=== PATIENT | male | born 1960 | race Caucasian/White ===

== ENCOUNTER 2020-02-26 07:16 | Outpatient (REF) | payer OTHER, SELFPAY ==
[2020-02-26 07:48] LABS: MANUAL DIFF FLAG NO
[2020-02-26 07:51] LABS: Basophils Absolute Auto 0.1 X10*3/uL (0.0-0.2); Basophils Percent Auto 0.7 % (0-2); Eosinophils Absolute Auto 0.4 X10*3/uL (0.0-0.4); Eosinophils Percent Auto 4.6 % (0-4); Hematocrit 45.1 % (42-52); Hemoglobin 14.9 g/dl (14.0-18.0); Imm Gran Abs Auto 0.05 X10*3/uL (0.00-0.03); Imm Gran Pct Auto 0.7 % (0.0-0.4); Lymphocytes Percent Auto 25.7 % (20-40); Mean Corpuscular Hemoglobin 29.4 pg (27.0-33.0); Mean Platelet Volume 9.7 fL (9.4-12.4); Monocytes Absolute Auto 0.7 X10*3/uL (0.1-1.2); Monocytes Percent Auto 9.4 % (2-11); Neutrophils Absolute Auto 4.5 X10*3/uL (2.0-8.3); Neutrophils Percent Auto 58.9 % (45-73); Platelet Count 293 X10*3/uL (160-400); Red Blood Count 5.07 X10*6/uL (4.60-5.80); Red Cell Distribution Width 12.6 % (11.0-16.0); White Blood Count 7.6 X10*3/uL (4.8-10.8)
[2020-02-26 08:18] LABS: Alanine Aminotransferase 28 U/L (0-40); Albumin Level 4.4 g/dL (3.5-5.0); Alkaline Phosphatase 60 U/L (39-117); Anion Gap 12 (12-20); Aspartate Amino Transferase 19 U/L (5-37); Bilirubin Total 0.9 mg/dL (0.0-1.0); Blood Urea Nitrogen 17 mg/dL (9-16); Calcium 8.9 mg/dL (8.4-10.2); Carbon Dioxide 26 mmol/L (22-29); Chloride 104 mmol/L (96-108); Cholesterol 205 mg/dL; Estimated Glomerular Filt Rate > 60; Glucose Fasting 114 mg/dL (60-99); HDL Cholesterol 49 mg/dL; LDL Cholesterol Calculated 141 mg/dl; Potassium 4.1 mmol/l (3.3-5.1); Sodium 138 mmol/L (135-145); Total Protein 6.6 g/dL (6.5-8.0); Triglycerides 76 mg/dL
[2020-02-26 08:39] LABS: Prostate Specific Antigen Scr 0.96 ng/mL (<0.05-4.0); TSH reflex Free T4 1.13 mIU/mL (0.32-4.0)
[2020-02-26 08:53] LABS: Creatinine Urine 121.18 mg/dL; Microalbumin Urine < 5.0 mg/L
== END 2020-02-26 07:17 | disposition home or self-care (01) ==
LOC: HO.LAB 07:16
PROVIDERS: Visit Provider Physician Assistant
DX: E78.5 Hyperlipidemia, unspecified (principal); I10 Essential (primary) hypertension; Z12.5 Encounter for screening for malignant neoplasm of prostate
CPT/HCPCS: 36415; 80053; 80061; 82043; 84153; 84443; 85025

== ENCOUNTER 2020-04-06 07:44 | Outpatient (REF) | payer OTHER, SELFPAY | END 2020-04-06 07:45 | disposition home or self-care (01) | LOC: HO.LAB 07:44 | PROVIDERS: Visit Provider Internal Medicine | DX: Z20.828 Contact with and (suspected) exposure to other viral communicable diseases (principal) | CPT/HCPCS: C9803; U0003 ==

== ENCOUNTER 2020-04-09 13:26 | Outpatient (REF) | payer OTHER, SELFPAY ==
[2020-04-09 13:36] LABS: COVID-19 Test Positive (Negative)
== END 2020-04-09 13:27 | disposition home or self-care (01) ==
LOC: HO.EMPCOV 13:26
PROVIDERS: Visit Provider Internal Medicine
DX: Z20.828 Contact with and (suspected) exposure to other viral communicable diseases (principal)
CPT/HCPCS: 36415; 87635; C9803

== ENCOUNTER 2020-05-27 07:13 | Outpatient (REF) | payer OTHER, SELFPAY ==
[2020-05-27 07:54] LABS: MANUAL DIFF FLAG NO
[2020-05-27 08:03] LABS: Basophils Percent Auto 0.5 % (0-2); Eosinophils Absolute Auto 0.5 X10*3/uL (0.0-0.4); Hematocrit 45.4 % (42-52); Hemoglobin 15.1 g/dl (14.0-18.0); Imm Gran Abs Auto 0.08 X10*3/uL (0.00-0.03); Imm Gran Pct Auto 1.1 % (0.0-0.4); Lymphocytes Absolute Auto 1.7 X10*3/uL (1.2-4.9); Mean Corpuscular HGB Conc 33.3 g/dl (31.0-36.0); Mean Corpuscular Hemoglobin 29.2 pg (27.0-33.0); Mean Corpuscular Volume 87.8 fL (80-98); Mean Platelet Volume 9.6 fL (9.4-12.4); Monocytes Absolute Auto 0.7 X10*3/uL (0.1-1.2); Monocytes Percent Auto 8.7 % (2-11); Neutrophils Absolute Auto 4.6 X10*3/uL (2.0-8.3); Neutrophils Percent Auto 61.7 % (45-73); Platelet Count 358 X10*3/uL (160-400); Red Blood Count 5.17 X10*6/uL (4.60-5.80); Red Cell Distribution Width 12.3 % (11.0-16.0); White Blood Count 7.5 X10*3/uL (4.8-10.8)
[2020-05-27 08:31] LABS: Alanine Aminotransferase 35 U/L (0-40); Albumin Level 4.6 g/dL (3.5-5.0); Alkaline Phosphatase 65 U/L (39-117); Anion Gap 13 (12-20); Aspartate Amino Transferase 22 U/L (5-37); Bilirubin Total 1.1 mg/dL (0.0-1.0); Blood Urea Nitrogen 21 mg/dL (9-16); Calcium 9.4 mg/dL (8.4-10.2); Carbon Dioxide 28 mmol/L (22-29); Chloride 104 mmol/L (96-108); Cholesterol 213 mg/dL; Estimated Glomerular Filt Rate > 60; Glucose Fasting 126 mg/dL (60-99); HDL Cholesterol 48 mg/dL; LDL Cholesterol Calculated 151 mg/dl; Potassium 4.2 mmol/L (3.3-5.1); Sodium 141 mmol/L (135-145); Total Protein 7.1 g/dL (6.5-8.0); Triglycerides 73 mg/dL
[2020-05-27 08:48] LABS: Estimated Average Glucose 123 mg/dL; Hemoglobin A1c % 5.9 %
[2020-05-27 08:52] LABS: Prostate Specific Antigen Scr 1.14 ng/mL (<0.05-4.0)
== END 2020-05-27 07:14 | disposition home or self-care (01) ==
LOC: HO.LAB 07:13
PROVIDERS: PCP Physician Assistant; Visit Provider Physician Assistant
DX: I10 Essential (primary) hypertension (principal); E78.00 Pure hypercholesterolemia, unspecified; Z12.5 Encounter for screening for malignant neoplasm of prostate
CPT/HCPCS: 36415; 80053; 80061; 83036; 84153; 85025

== ENCOUNTER 2020-11-01 07:01 | Outpatient (REF) | payer OTHER, SELFPAY ==
[2020-11-01 07:59] LABS: Alanine Aminotransferase 26 U/L (0-40); Albumin Level 4.3 g/dL (3.5-5.0); Alkaline Phosphatase 60 U/L (39-117); Anion Gap 12 (12-20); Aspartate Amino Transferase 21 U/L (5-37); Blood Urea Nitrogen 22 mg/dL (9-16); Calcium 9.4 mg/dL (8.4-10.2); Carbon Dioxide 26 mmol/L (22-29); Chloride 107 mmol/L (96-108); Cholesterol 206 mg/dL; Estimated Glomerular Filt Rate > 60; Glucose Fasting 118 mg/dL (60-99); HDL Cholesterol 46 mg/dL; LDL Cholesterol Calculated 149 mg/dl; Potassium 4.1 mmol/L (3.3-5.1); Sodium 141 mmol/L (135-145); Total Protein 6.5 g/dL (6.5-8.0); Triglycerides 59 mg/dL
[2020-11-01 08:24] LABS: TSH reflex Free T4 0.94 uIU/mL (0.32-4.0)
== END 2020-11-01 07:02 | disposition home or self-care (01) ==
LOC: HO.LAB 07:01
PROVIDERS: PCP Physician Assistant; Visit Provider Physician Assistant
DX: E78.00 Pure hypercholesterolemia, unspecified (principal); I10 Essential (primary) hypertension
CPT/HCPCS: 36415; 80053; 80061; 84443

== ENCOUNTER 2021-06-03 06:59 | Outpatient (REF) | payer OTHER, SELFPAY ==
[2021-06-03 07:32] LABS: Hematocrit 44.6 % (42.0-52.0); Hemoglobin 14.7 g/dl (14.0-18.0); Mean Corpuscular Hemoglobin 29.7 pg (27.0-33.0); Mean Corpuscular Volume 90.1 fL (80.0-98.0); Mean Platelet Volume 9.4 fL (9.4-12.4); Platelet Count 298 X10*3/uL (160-400); Red Blood Count 4.95 X10*6/uL (4.60-5.80); Red Cell Distribution Width 12.6 % (11.0-16.0); White Blood Count 7.9 X10*3/uL (4.8-10.8)
[2021-06-03 08:06] LABS: Alanine Aminotransferase 22 U/L (0-40); Albumin Level 4.3 g/dL (3.5-5.0); Alkaline Phosphatase 63 U/L (39-117); Anion Gap 12 (12-20); Aspartate Amino Transferase 18 U/L (5-37); Blood Urea Nitrogen 20 mg/dL (9-16); Calcium 9.5 mg/dL (8.4-10.2); Carbon Dioxide 27 mmol/L (22-29); Chloride 105 mmol/L (96-108); Cholesterol 194 mg/dL; Estimated Glomerular Filt Rate > 60; Glucose Fasting 125 mg/dL (60-99); HDL Cholesterol 48 mg/dL; LDL Cholesterol Calculated 133 mg/dl; Potassium 3.9 mmol/L (3.3-5.1); Sodium 140 mmol/L (135-145); Total Protein 6.6 g/dL (6.5-8.0); Triglycerides 69 mg/dL
[2021-06-03 08:07] LABS: TSH reflex Free T4 0.99 uIU/mL (0.32-4.0)
== END 2021-06-03 07:00 | disposition home or self-care (01) ==
LOC: HO.LAB 06:59
PROVIDERS: PCP Physician Assistant; Visit Provider Physician Assistant
DX: Z12.5 Encounter for screening for malignant neoplasm of prostate (principal); E78.00 Pure hypercholesterolemia, unspecified; I10 Essential (primary) hypertension
CPT/HCPCS: 36415; 80053; 80061; 84153; 84443; 85027

== ENCOUNTER 2021-12-09 07:04 | Outpatient (REF) | payer OTHER, SELFPAY ==
[2021-12-09 07:57] LABS: Alanine Aminotransferase 29 U/L (0-40); Albumin Level 4.3 g/dL (3.5-5.0); Alkaline Phosphatase 55 U/L (39-117); Anion Gap 15 (12-20); Aspartate Amino Transferase 21 U/L (5-37); Blood Urea Nitrogen 17 mg/dL (9-16); Carbon Dioxide 25 mmol/L (22-29); Chloride 105 mmol/L (96-108); Cholesterol 200 mg/dL; Estimated Glomerular Filt Rate > 60; Glucose Fasting 123 mg/dL (60-99); HDL Cholesterol 51 mg/dL; LDL Cholesterol Calculated 135 mg/dl; Potassium 3.8 mmol/L (3.3-5.1); Sodium 141 mmol/L (135-145); Total Protein 6.7 g/dL (6.5-8.0); Triglycerides 73 mg/dL
[2021-12-09 09:27] LABS: Estimated Average Glucose 120 mg/dL; Hemoglobin A1c % 5.8 %
== END 2021-12-09 07:05 | disposition home or self-care (01) ==
LOC: HO.LAB 07:04
PROVIDERS: PCP Physician Assistant; Visit Provider Physician Assistant
DX: R73.09 Other abnormal glucose (principal); E78.00 Pure hypercholesterolemia, unspecified
CPT/HCPCS: 36415; 80053; 80061; 83036

== ENCOUNTER 2022-03-21 13:49 | Outpatient (REF) | payer OTHER, SELFPAY ==
[2022-03-21 16:02] LABS: Influenza A PCR NEGATIVE (Negative); Influenza B PCR NEGATIVE (Negative); Resp Syncy Virus RNA Qual PCR NEGATIVE (Negative); SARS COV2 PCR INHOUSE NEGATIVE (Negative)
== END 2022-03-21 13:50 | disposition home or self-care (01) ==
LOC: HO.LNP 13:49
PROVIDERS: Visit Provider Physician Assistant Medical
DX: Z20.822 Contact with and (suspected) exposure to COVID-19 (principal); R05.9 Cough, unspecified
CPT/HCPCS: 0241U

== ENCOUNTER 2022-07-03 07:05 | Outpatient (REF) | payer OTHER, SELFPAY ==
[2022-07-03 07:39] LABS: Hematocrit 44.5 % (42.0-52.0); Hemoglobin 14.6 g/dl (14.0-18.0); Mean Corpuscular HGB Conc 32.8 g/dl (31.0-36.0); Mean Corpuscular Hemoglobin 28.9 pg (27.0-33.0); Mean Corpuscular Volume 87.9 fL (80.0-98.0); Mean Platelet Volume 9.4 fL (9.4-12.4); Platelet Count 297 X10*3/uL (160-400); Red Blood Count 5.06 X10*6/uL (4.60-5.80); Red Cell Distribution Width 12.7 % (11.0-16.0); White Blood Count 8.6 X10*3/uL (4.8-10.8)
[2022-07-03 07:48] LABS: Estimated Average Glucose 128 mg/dL; Hemoglobin A1c % 6.1 %
[2022-07-03 08:10] LABS: Alanine Aminotransferase 23 U/L (0-40); Albumin Level 4.2 g/dL (3.5-5.0); Alkaline Phosphatase 63 U/L (39-117); Anion Gap 12 (12-20); Aspartate Amino Transferase 20 U/L (5-37); Bilirubin Total 1.2 mg/dL (0.0-1.0); Blood Urea Nitrogen 19 mg/dL (9-16); Carbon Dioxide 26 mmol/L (22-29); Chloride 106 mmol/L (96-108); Cholesterol 191 mg/dL; Estimated Glomerular Filt Rate > 60; Glucose Fasting 117 mg/dL (60-99); HDL Cholesterol 48 mg/dL; LDL Cholesterol Calculated 132 mg/dl; Potassium 4.2 mmol/L (3.3-5.1); Sodium 140 mmol/L (135-145); Total Protein 6.2 g/dL (6.5-8.0); Triglycerides 56 mg/dL
[2022-07-03 08:28] LABS: Prostate Specific Antigen Scr 1.23 ng/mL (<0.05-4.0); TSH reflex Free T4 1.11 uIU/mL (0.32-4.0)
[2022-07-03 08:39] LABS: Microalbum/Creatinine Ratio Ur 3.7 ug/mg cr
== END 2022-07-03 07:06 | disposition home or self-care (01) ==
LOC: HO.LAB 07:05
PROVIDERS: PCP Physician Assistant; Visit Provider Physician Assistant
DX: Z12.5 Encounter for screening for malignant neoplasm of prostate (principal); R73.09 Other abnormal glucose; I10 Essential (primary) hypertension; E78.00 Pure hypercholesterolemia, unspecified
CPT/HCPCS: 36415; 80053; 80061; 82043; 83036; 84153; 84443; 85027

== ENCOUNTER 2022-08-13 07:00 | Outpatient (RCR) | payer OTHER, SELFPAY ==
[2022-07-13 07:00] VITALS: BP 139/86; PULSE 78; O2SAT 95
--- NOTE | 2022-07-13 11:02 | MHC.PT.EP ---
[facility] [place] [facility] [place] Office [place] Office [address] [phone] F: [phone] F: [phone] F: [phone] F: [phone] Physical Therapy Plan of Care Date of Evaluation: Date of Surgery: Diagnosis: SACROCOCCYGEAL DISORDER Assessment: 61 YO MALE REF TO PT W A DX OF SACROCOCCYGEAL DISORDER, RECENT EXACERBATION 2 MONTHS AGO AND INITIAL INJURY APPROX 25 YRS AGO- Pt WORKS FULL-TIME IN THE [employer] [facility] [employer], REQ STANDING, BENDING, SITTING, PUSHING/PULLING, AND LIFTING. OBJECTIVELY, Pt HAS (+) SOFT TISSUE IRRIT IN LACY THORACOLUMBAR PS MM, DECR FLEXIB IN Rt > Lt HIP COMPLEX, DECR BODY MECH, HYPOMOBILE LUMBAR REGION, AND DECR STRENGTH IN LEFT GLUTE COMPLEX, WHICH INFLUENCES LEFT SI Jt. Pt HAS DECR DEBORA TO PROLONGED STANDING, SITTING, LIFTING, AND W TRANSITIONAL MVMTS. HE WOULD BENEFIT FROM PT TO ADDRESS HIS LS/ LUMBOPELVIC- HIP SOFT TISSUE DYSFUNCTION ->DEV A HEP/ SX MGMT STRATEGIES, AND PAIN MGMT TECHN. Frequency and Duration: The patient will be seen 2 x WK x 6 WKS Short Term Goals: *DECR LS PAIN TO 2-3/10 W REG ADLs * IMPROVE TRUNK AND HIP FLEXIB *Pt INDEP SELF CORRECT POSTURE/ BODY MECH W ADLs Assisted Goals: Pt INDEP W HEP PROGRESSION AND SELF-SX MGMT STRATEGIES Pt RESUME REG ADLs EVIDENT W IMPROVED LEFI SCORE (AT EVAL 1450 ) Pt INCR LUMBOPELVIC/ PROX LE STRENGTH BY 1 GRADE Treatment Plan: Modalities to reduce pain, spasms and effusion. Manual therapy to restore motion and function. Therapeutic exercise to improve strength and flexibility. Neuromuscular re-education for posture and balance. Therapeutic activities to return to functional activities of daily living. Electronically signed by: JAQUAN MESSER,PT Please sign and return to therapist. Thank you for your referral.
--- NOTE | 2022-08-13 12:10 | MHC.PT.DC ---
[facility] [place] Office [place] Office [place] Office [address] [place] 140 [facility] [phone] F: [phone] F: [phone] F: [phone] F: [phone] Physical Therapy Discharge Report Diagnosis: SACROCOCCYGEAL DISORDER Date of Surgery: Date of Evaluation: 07/13/22 Date of Discharge: 08/13/22 Treatments to Date: 8 Cancellations to Date: 0 No Shows to Date: 0 Discharge Status: Achieved Goals Improved Function Independent with HEP Discharge Summary: THE Pt BENEFITTED FROM PT FOR HIS SACROCOCCYGEAL DISORDER- WE ADDRESSED HIS POSTURE, TRUNK MOBILITY, HIP FLEXIBILITY ( TROCH BURSITIS Lt HIP), TISSUE TENSION, AND PAIN REDUCTION. THE Pt FEELS HE CAN CONT W HIS HEP AND PLANS TO RETURN TO THE GYM. HE NOTES HE HAS MILD LS SXS W PROLONGED DRIVING, BUT IS AWARE OF SX MGMT TECHN. HE HAS MET HIS PT GOALS AND IS D/C'D THIS DATE W HIS PROGRESSIVE HEP. Electronically signed by: JAQUAN MESSER,PT Please sign and return to therapist. Thank you for your referral.
== END 2022-08-13 12:11 | disposition home or self-care (01) ==
LOC: HO.PT 07:00
PROVIDERS: PCP Physician Assistant; Visit Provider Physician Assistant
DX: M53.3 Sacrococcygeal disorders, not elsewhere classified (principal)
CPT/HCPCS: 97033; 97110; 97140; 97162; 97530

== ENCOUNTER 2023-01-01 07:04 | Outpatient (REF) | payer OTHER, SELFPAY ==
[2023-01-01 07:35] LABS: Hematocrit 46.3 % (42.0-52.0); Hemoglobin 15.5 g/dl (14.0-18.0); Mean Corpuscular HGB Conc 33.5 g/dl (31.0-36.0); Mean Corpuscular Hemoglobin 29.5 pg (27.0-33.0); Mean Corpuscular Volume 88.2 fL (80.0-98.0); Mean Platelet Volume 9.3 fL (9.4-12.4); Platelet Count 292 X10*3/uL (160-400); Red Blood Count 5.25 X10*6/uL (4.60-5.80); Red Cell Distribution Width 12.4 % (11.0-16.0); White Blood Count 8.1 X10*3/uL (4.8-10.8)
[2023-01-01 07:46] LABS: Estimated Average Glucose 120 mg/dL; Hemoglobin A1c % 5.8 % (<6.0)
[2023-01-01 07:59] LABS: Alanine Aminotransferase 25 U/L (0-40); Albumin Level 4.4 g/dL (3.5-5.0); Alkaline Phosphatase 61 U/L (39-117); Anion Gap 16 (12-20); Aspartate Amino Transferase 21 U/L (5-37); Blood Urea Nitrogen 19 mg/dL (9-16); Calcium 9.5 mg/dL (8.4-10.2); Carbon Dioxide 24 mmol/L (22-29); Chloride 105 mmol/L (96-108); Cholesterol 204 mg/dL (<200); Estimated Glomerular Filt Rate > 60; Glucose Fasting 115 mg/dL (60-99); HDL Cholesterol 55 mg/dL (>40); LDL Cholesterol Calculated 135 mg/dL (<100); Potassium 3.9 mmol/L (3.3-5.1); Sodium 141 mmol/L (135-145); Triglycerides 73 mg/dL (<150)
== END 2023-01-01 07:05 | disposition home or self-care (01) ==
LOC: HO.LAB 07:04
PROVIDERS: PCP Physician Assistant; Visit Provider Physician Assistant
DX: R73.09 Other abnormal glucose (principal); E78.00 Pure hypercholesterolemia, unspecified
CPT/HCPCS: 36415; 80053; 80061; 83036; 85027

== ENCOUNTER 2023-01-05 08:21 | Outpatient (AMB) | payer OTHER, SELFPAY ==
[2023-01-05 08:27] VITALS: BP 124/62; PULSE 69; O2SAT 98; BMI 27.7
--- NOTE | 2023-01-05 08:27 | MHC.PC.OV ---
Vital Signs 01/05/23 08:27 Height 5 ft 10 in Weight 193 lb BMI 27.7 BP 124/62 Blood Pressure Location Lt brachial Position Sitting Pulse 69 Pulse Source Pulse Oximeter Pulse Oximetry (%) 98 Oxygen Delivery Method Room Air Intake Visit Reasons: f/u HTN Allergies loratadine [From CLARITIN] Allergy (Unknown, Verified 01/05/23 08:53) TACHYCARDIA Medication List - Last Reconciled 01/05/23 by Gergory Ayala PA-C albuterol sulfate 90 mcg/actuation 1 inh inhalation QID 30 days ibuprofen 800 mg PO Q8H PRN 7 days lisinopril 20 mg PO DAILY 90 days Tobacco use date assessed: 07/06/22 Dental Screening Dental Screen Date: 01/05/23 Did you have a dental visit in the last 12 months?: Yes Did you have a dental problem in the last 6 months where you did not have access to dental care?: No Was dental information given to patient?: Patient has dentist HPI f/u HTN HPI Details Joshua is a [age] y/o M here today for follow-up visit ? Pmhx significant for HTN, HLD, impaired glucose metabolism ? .. ? HTN:? Blood pressure reports systolic 115- 120 systolic.?.? No report of headaches, CP, SOB. .. Borderline high cholesterol: Most recent fasting lipids showing borderline high total cholesterol and LDL 135. Will work on lifestyle modifications to reduce his high cholesterol. .. ?impaired glucose metabolism:? Most recent fasting blood sugar still slightly elevated in A1c slightly improved. Laboratory Tests 07/03/22 07/03/22 07/03/22 07:13 07:13 07:13 RBC Fasting Glucose Hemoglobin A1c % 6.1 Cholesterol 191 LDL Cholesterol, C alc 132 01/01/23 01/01/23 01/01/23 07:10 07:10 07:10 RBC 5.25 Fasting Glucose 115 H Hemoglobin A1c % 5.8 Cholesterol 204 H LDL Cholesterol, C alc 135 H ? PFSH Surgical History Ruptured tendon Family History Father COPD (chronic obstructive pulmonary disease) Mother No problems noted. Maternal Grandmother Colon cancer Sister In good health Daughter In good health Brother Mental health disorder Substance use disorder Social History Housing: House Alcohol intake: current Alcohol intake frequency: a few times a month Alcohol type: beer Patient Tobacco Use Status: Former Tobacco user (12 years ago) Quit Date: 13 years ago Tobacco use type: Cigarette e-Cigarette/Vaping Use: Never Used Second Hand Smoke Exposure: No service: No Current occupational status: employed Current occupation: [employer] Current occupational exposures/hazards: No Cognitive needs: No Hearing needs: No Vision needs: Yes (glasses) Questionnaire PHQ-9 Over the last 2 weeks, how often have you been bothered by any of the following problems? 1. Little interest or pleasure in doing things: not at all 2. Feeling down, depressed, or hopeless: not at all 3. Trouble falling or staying asleep, or sleeping too much: not at all 4. Feeling tired or having little energy: not at all 5. Poor appetite or overeating: not at all 6. Feeling bad about yourself - or that you are a failure or have let yourself or your family down: not at all 7. Trouble concentrating on things, such as reading the newspaper or watching television: not at all 8. Moving or speaking so slowly that other people could have noticed. Or the opposite - being so fidgety or restless that you have been moving around a lot more than usual: not at all 9. Thoughts that you would be better off or of hurting yourself in some way: not at all Total score: 0 Depression Screening Interpretation: Negative 79700 - PHQ-9 Billing: Yes Source: Developed by Drs. Joshua Sumner, Amber Aguila, Darío eReves and colleagues, with an educational debra from [employer]. Thrive Questionnaire Date Thrive assessed: 07/06/22 AUDIT C Alcohol Use Questionnaire (AUDIT-C) 1. How often do you have a drink containing alcohol?: 2-4 times a month 2. How many drinks containing alcohol do you have on a typical day when you are drinking?: 1 or 2 Total Score: 2 ARCELIA-7 AMB Questionnaire ARCELIA-7 Date ARCELIA - 7 assessed: 07/06/22 Source: Developed by Drs. Joshua Sumner, Amber Aguila, Darío Reeves and colleagues, with an educational debra from [employer]. Review of Systems Const Denies headache(s) Eyes Denies loss of vision ENT Denies vertigo, Denies dizziness, Denies headache(s) and Denies sore throat Card Denies chest pain, Denies leg edema and Denies lightheadedness Resp Denies cough, Denies hemoptysis and Denies wheezing GI Denies abdominal pain, Denies melena, Denies constipation, Denies diarrhea and Denies vomiting Denies dysuria, Denies urinary frequency and Denies urinary urgency Musc Denies arthralgias, Denies joint swelling, Denies numbness and Denies tingling Neuro Denies Abnormal speech present, Denies behavioral changes, Denies vertigo, Denies dizziness, Denies headache(s), Denies loss of vision, Denies memory loss, Denies numbness and Denies tingling Psych Denies anxiety, Denies behavioral changes, Denies depression, Denies memory loss and Denies panic attacks Arash/Lymph Denies easy bleeding and Denies easy bruising Aller/Immun Denies wheezing Physical exam (Primary Care) Vital Signs: Last Vital Signs Pulse 69 01/05/23 08:27 BP 124/62 01/05/23 08:27 Pulse Ox 98 01/05/23 08:27 Oxygen Delivery Method Room Air 01/05/23 08:27 BMI result Body Mass Index 27.7 Tobacco/Smoking Status: Tobacco use Status Tobacco use date assessed 07/06/22 01/05/23 08:31 Patient Tobacco Use Status Former Tobacco user (12 01/05/23 08:31 years ago) Tobacco use type Cigarette 01/05/23 08:31 e-Cigarette/Vaping Use Never Used 01/05/23 08:31 PHQ-9: PHQ-9 Score PHQ-9: Total score 0 01/05/23 08:31 Depression Screening Interpretation: Negative Thrive Assessment: Date of Thrive Assessment Date Thrive assessed 07/06/22 01/05/23 08:31 Const General: healthy appearing, no acute distress, alert and awake Nutritional Appearance: well nourished Orientation/consciousness: oriented to person, oriented to place and oriented to time HENMT Ears: TM's normal bilaterally General nose exam: Normal nasal mucous membranes and turbinates present Eyes Conjunctivae: conjunctivae normal Sclerae: sclerae normal Pupils: Equal, round and reactive pupils present Neck Neck: Yes no lymphadenopathy and Yes no JVD Thyroid: Thyroid normal Carotids: no bruits Resp Effort & Inspection: normal respiratory effort and not tachypneic Auscultation: no crackles, no rales, no rhonchi and no wheezes Cardio Rate: regular rate Rhythm: regular rhythm Heart sounds: no murmurs and normal S1 and S2 GI Palpation (GI): Soft to palpation, nontender, no hepatomegaly and no splenomegaly Auscultation: normal bowel sounds Skin General skin exam: no rashes or lesions noted and dry skin Neuro General: oriented to person, oriented to place and oriented to time Cranial nerves: Yes Equal, round and reactive pupils present Speech: No Abnormal speech present Gait exam (Neuro): Normal gait present Motor exam (neuro): no tremor noted Extrem Right upper extremity: full ROM Left upper extremity: full ROM Right lower extremity: full ROM; no edema Left lower extremity: full ROM; no edema Psych Mental Status: mental status grossly normal Speech and movement: Normal speech and movement present Affect: normal affect Attitude: cooperative Thought process: Normal thought process present Assessment and Plan Assessment & Plan (1) HLD (hyperlipidemia): Code(s): E78.5 - Hyperlipidemia, unspecified Qualifiers: Hyperlipidemia type: pure hypercholesterolemia Qualified Code(s): E78.00 - Pure hypercholesterolemia, unspecified Plan: Patient continues to work on lifestyle modifications to reduce his cholesterol. Most recent lipid panel acceptable total cholesterol below goal LDL to be below 160. (2) HTN (hypertension): Code(s): I10 - Essential (primary) hypertension Qualifiers: Hypertension type: essential hypertension Qualified Code(s): I10 - Essential (primary) hypertension Plan: Patient's blood pressure acceptable today in office. Will continue his current dose of lisinopril 20 mg. Goal blood pressure to be below 140/90 (3) Impaired glucose metabolism: Code(s): R73.09 - Other abnormal glucose Plan: Patient fasting blood sugar still remains slightly elevated. A1c improved , patient does understand he is a prediabetic and will continue to work on lifestyle modifications on reducing carbohydrates in his diet. Orders: Orders Hemoglobin A1c 6 Months R73.09 - Other abnormal glucose Prostate Specific Antigen Scr 6 Months I10 - Essential (primary) hypertension, Z12.5 - Encounter for screening for malignant neoplasm of prostate Lipid Panel 6 Months E78.00 - Pure hypercholesterolemia, unspecified Comprehensive [place]. Panel Fast 6 Months I10 - Essential (primary) hypertension Coding Level of Care Code Est Pt Level 4 (52196) Diagnoses Pure hypercholesterolemia E78.00 Hyperlipidemia type: pure hypercholesterolemia Essential hypertension I10 Hypertension type: essential hypertension Impaired glucose metabolism R73.09
== END 2023-01-05 09:03 | disposition home or self-care (01) ==
PROVIDERS: Visit Provider Physician Assistant
DX: E78.00 Pure hypercholesterolemia, unspecified (principal); I10 Essential (primary) hypertension; R73.09 Other abnormal glucose
CPT/HCPCS: 99214

== ENCOUNTER 2023-05-12 08:42 | Outpatient (AMB) | payer OTHER, SELFPAY ==
[2023-05-12 09:10] VITALS: BP 116/76; PULSE 78; O2SAT 95; BMI 28.0
--- NOTE | 2023-05-12 09:10 | A.OFFPC_ITS ---
Vital Signs 3 05/12/23 09:10 Height 5 ft 10 in Weight 195 lb 4 oz BMI 28.0 BP 116/76 Blood Pressure Location Lt brachial Position Sitting Pulse 78 Pulse Source Pulse Oximeter Pulse Oximetry (%) 95 Oxygen Delivery Method Room Air Intake Visit Reasons: White Spots On throat/Ear & Sinus Infection Intake Note: Pt presents with symptoms of a sore throat along with potential sinus infection and presence of fluid in the ears. Outside Sales Account Manager Required: No Accompanied by: Self / Same As Patient Allergies loratadine [From CLARITIN] Allergy (Unknown, Verified 05/12/23 09:16) TACHYCARDIA Medication List - Last Reconciled 05/12/23 by Gregory Ayala PA-C albuterol sulfate 90 mcg/actuation 1 inh inhalation QID 30 days ibuprofen 800 mg PO Q8H PRN 7 days lisinopril 20 mg PO DAILY 90 days Tobacco use date assessed: 05/12/23 Dental Screening Dental Screen Date: 05/12/23 Did you have a dental visit in the last 12 months?: Yes Did you have a dental problem in the last 6 months where you did not have access to dental care?: No Was dental information given to patient?: Patient has dentist HPI White Spots On throat/Ear & Sinus Infection 2 HPI0 Details Patient is 62-year-old male here today for problem visit. He reports last week coming down with a viral upper respiratory illness. He reports symptoms of ear congestion and sore throat. He reports he tested for COVID and was negative last week He had his look in the back of his throat and has noted white patches. He reports having mild dysphagia and sore throat. PFSH Surgical History Ruptured tendon Family History Father COPD (chronic obstructive pulmonary disease) Mother No problems noted. Maternal Grandmother Colon cancer Sister In good health Daughter In good health Brother Mental health disorder Substance use disorder Social History Housing: House Alcohol intake: current Alcohol intake frequency: a few times a month Alcohol type: beer Patient Tobacco Use Status: Former Tobacco user (12 years ago) Quit Date: 13 years ago Tobacco use type: Cigarette e-Cigarette/Vaping Use: Never Used Second Hand Smoke Exposure: No service: No Current occupational status: employed Current occupation: [employer] Current occupational exposures/hazards: No Cognitive needs: No Hearing needs: No Vision needs: Yes (glasses) Questionnaire PHQ-9 Over the last 2 weeks, how often have you been bothered by any of the following problems? 1. Little interest or pleasure in doing things: not at all 2. Feeling down, depressed, or hopeless: not at all 3. Trouble falling or staying asleep, or sleeping too much: not at all 4. Feeling tired or having little energy: not at all 5. Poor appetite or overeating: not at all 6. Feeling bad about yourself - or that you are a failure or have let yourself or your family down: not at all 7. Trouble concentrating on things, such as reading the newspaper or watching television: not at all 8. Moving or speaking so slowly that other people could have noticed. Or the opposite - being so fidgety or restless that you have been moving around a lot more than usual: not at all 9. Thoughts that you would be better off or of hurting yourself in some way: not at all Total score: 0 Depression Screening Interpretation: Negative Depression Screening Done: Yes 77834 - PHQ-9 Billing: Yes Source: Developed by Drs. Joshua Sumner, Amber Aguila, Darío Reeves and colleagues, with an educational debra from [employer]. Thrive Questionnaire Date Thrive assessed: 05/12/23 I am a: Patient What is your living situation today?: I have a steady place to live Within the past 12 months, did the food you bought not last and you didn't have the money to get more?: Never true Within the past 12 months, did you worry whether your food would run out before you got money to buy more?: Never true Do you have trouble paying for medicines?: No Do you have trouble getting transportation to medical appointments?: No Do you have trouble paying your heating and electricity bill?: No Do you have trouble taking care of your child, family member or friend?: No Do you have trouble with day-to-day activities such as bathing, preparing meals, shopping, managing finances, etc.?: No Are you currently unemployed and looking for a job?: No Are you interested in more education?: No Please select the resources that you would like help with: None Currently or been in a relationship where the following occur: no concerns reported THRIVE Score: 0 AUDIT C Alcohol Use Questionnaire (AUDIT-C) 1. How often do you have a drink containing alcohol?: 2-4 times a month 2. How many drinks containing alcohol do you have on a typical day when you are drinking?: 1 or 2 3. How often do you have six or more drinks on one occasion?: Never Total Score: 2 ARCELIA-7 AMB Questionnaire ARCELIA-7 Date ARCELIA - 7 assessed: 05/12/23 Feeling nervous, anxious, or on edge: 0 = Not at all Not being able to stop or control worryin = Not at all Worrying too much about different things: 0 = Not at all Trouble relaxin = Not at all Being so restless that it is hard to sit still: 0 = Not at all Becoming easily annoyed or irritable: 0 = Not at all Feeling afraid as if something awful might happen: 0 = Not at all Total ARCELIA-7 score (0-4 normal; 5-9 mild; 10-14 moderate; 15-21 severe): 0 Source: Developed by Drs. Joshua Sumner, Amber Aguila, Darío Reeves and colleagues, with an educational debra from [employer]. ARCELIA-7 Assessment Billing ARCELIA-7 Assessment Tool: ARCELIA-7 Assessment 25849 Review of Systems Const Denies headache(s) Eyes Denies loss of vision ENT Details: + EAR CONGESTION Denies vertigo, Denies dizziness, Denies headache(s) and Reports sore throat Card Denies chest pain, Denies leg edema and Denies lightheadedness Resp Denies cough, Denies hemoptysis and Denies wheezing GI Denies abdominal pain, Denies melena, Denies constipation, Denies diarrhea and Denies vomiting Denies dysuria, Denies urinary frequency and Denies urinary urgency Musc Denies arthralgias, Denies joint swelling, Denies numbness and Denies tingling Neuro Denies Abnormal speech present, Denies behavioral changes, Denies vertigo, Denies dizziness, Denies headache(s), Denies loss of vision, Denies memory loss, Denies numbness and Denies tingling Psych Denies anxiety, Denies behavioral changes, Denies depression, Denies memory loss and Denies panic attacks Arash/Lymph Denies easy bleeding and Denies easy bruising Aller/Immun Denies wheezing Physical exam (Primary Care) Vital Signs: Last Vital Signs Pulse 78 05/12/23 09:10 BP 116/76 05/12/23 09:10 Pulse Ox 95 05/12/23 09:10 Oxygen Delivery Method Room Air 05/12/23 09:10 BMI result Body Mass Index 28.0 Tobacco/Smoking Status: Tobacco use Status Tobacco use date assessed 05/12/23 05/12/23 09:16 Patient Tobacco Use Status Former Tobacco user (12 05/12/23 09:16 years ago) Tobacco use type Cigarette 05/12/23 09:16 e-Cigarette/Vaping Use Never Used 05/12/23 09:16 PHQ-9: PHQ-9 Score PHQ-9: Total score 0 05/12/23 09:25 Depression Screening Interpretation: Negative Thrive Assessment: Date of Thrive Assessment Date Thrive assessed 05/12/23 05/12/23 09:16 Currently or been in a relationship where the following occur: no concerns reported Const General: healthy appearing, no acute distress, alert and awake Nutritional Appearance: well nourished Orientation/consciousness: oriented to person, oriented to place and oriented to time HENMT Other: BILATERAL EAR CANALS AND TYMPANIC MEMBRANES ERYTHEMATOUS Ears: TM's abnormal bilaterally General nose exam: Normal nasal mucous membranes and turbinates present Mouth/tongue images: 2 1. NOTED WHITE PATCHES IN THE POSTERIOR PHARYNX Eyes Conjunctivae: conjunctivae normal Sclerae: sclerae normal Pupils: Equal, round and reactive pupils present Neck Neck: Yes no lymphadenopathy and Yes no JVD Thyroid: Thyroid normal Carotids: no bruits Resp Effort & Inspection: normal respiratory effort and not tachypneic Auscultation: no crackles, no rales, no rhonchi and no wheezes Cardio Rate: regular rate Rhythm: regular rhythm Heart sounds: no murmurs and normal S1 and S2 GI Palpation (GI): Soft to palpation, nontender, no hepatomegaly and no splenomegaly Auscultation: normal bowel sounds Skin General skin exam: no rashes or lesions noted and dry skin Neuro General: oriented to person, oriented to place and oriented to time Cranial nerves: Yes Equal, round and reactive pupils present Speech: No Abnormal speech present Gait exam (Neuro): Normal gait present Motor exam (neuro): no tremor noted Extrem Right upper extremity: full ROM Left upper extremity: full ROM Right lower extremity: full ROM; no edema Left lower extremity: full ROM; no edema Psych Mental Status: mental status grossly normal Speech and movement: Normal speech and movement present Affect: normal affect Attitude: cooperative Thought process: Normal thought process present Results AMB Rapid Strep 2 AMB Rapid Strep Negative Last Edit by MATTHIAS Crandall on 05/12/23 09:26 Results Reviewed Results Reviewed: Laboratory Last Values Strep Scn [facility] Negative 05/12/23 09:25 Assessment and Plan Assessment & Plan (1) Pharyngitis: Code(s): J02.9 - Acute pharyngitis, unspecified Qualifiers: Pharyngitis/tonsillitis etiology: other specified organisms Qualified Code(s): J02.8 - Acute pharyngitis due to other specified organisms Plan: PATIENT WITH NOTABLE PHARYNGITIS WITH TONSILLAR EXUDATES ON PHYSICAL EXAM. TESTED FOR RAPID STREP THOUGH IS NEGATIVE. WILL EMPIRICALLY TREAT DUE TO PATIENT'S PRESENTATION SYMPTOMS WITH PENICILLIN. Orders: Orders 2 AMB Rapid Strep Screen Today J02.9 - Acute pharyngitis, unspecified Medications: New 2 amoxicillin 500 mg PO Q8H 7 days 21 tabs 0RF J02.9 - Acute pharyngitis, unspecified Coding Level of Care Code Est Pt Level 3 (51971) Diagnoses Pharyngitis due to other organism J02.8 Pharyngitis/tonsillitis etiology: other specified organisms Additional Codes ARCELIA-7 Assessment Billing - ARCELIA-7 Assessment Tool: ARCELIA-7 Assessment 41023 ([id number])
== END 2023-05-12 10:06 | disposition home or self-care (01) ==
PROVIDERS: PCP Physician Assistant; Visit Provider Physician Assistant
DX: J02.8 Acute pharyngitis due to other specified organisms (principal); J02.9 Acute pharyngitis, unspecified
CPT/HCPCS: 87880; 99213

== ENCOUNTER → 2023-05-20 13:13 | Outpatient (BNVA) | payer OTHER, SELFPAY | PROVIDERS: PCP Physician Assistant; Visit Provider Physician Assistant | DX: Z13.89 Encounter for screening for other disorder (principal) | CPT/HCPCS: 73660; 99204 ==

== ENCOUNTER → 2023-05-26 09:14 | Outpatient (BNVA) | payer OTHER, SELFPAY | PROVIDERS: PCP Physician Assistant; Visit Provider Internal Medicine | DX: Z13.89 Encounter for screening for other disorder (principal) | CPT/HCPCS: 99213 ==

== ENCOUNTER 2023-07-06 07:04 | Outpatient (REF) | payer OTHER, SELFPAY ==
[2023-07-06 08:11] LABS: Estimated Average Glucose 114 mg/dL; Hemoglobin A1c % 5.6 % (<6.0)
[2023-07-06 08:29] LABS: Alanine Aminotransferase 22 U/L (0-40); Albumin Level 4.1 g/dL (3.5-5.0); Alkaline Phosphatase 60 U/L (39-117); Anion Gap 11 (12-20); Aspartate Amino Transferase 18 U/L (5-37); Blood Urea Nitrogen 18 mg/dL (9-16); Calcium 8.9 mg/dL (8.4-10.2); Carbon Dioxide 25 mmol/L (22-29); Chloride 110 mmol/L (96-108); Cholesterol 193 mg/dL (<200); Estimated Glomerular Filt Rate > 60; Glucose Fasting 123 mg/dL (60-99); HDL Cholesterol 62 mg/dL (>40); LDL Cholesterol Calculated 120 mg/dL (<100); Sodium 142 mmol/L (135-145); Total Protein 6.6 g/dL (6.5-8.0); Triglycerides 59 mg/dL (<150)
[2023-07-06 08:41] LABS: Prostate Specific Antigen Scr 1.13 ng/mL (<0.05-4.0)
== END 2023-07-06 07:05 | disposition home or self-care (01) ==
LOC: HO.LAB 07:04
PROVIDERS: PCP Physician Assistant; Visit Provider Physician Assistant
DX: Z12.5 Encounter for screening for malignant neoplasm of prostate (principal); I10 Essential (primary) hypertension; E78.00 Pure hypercholesterolemia, unspecified; R73.09 Other abnormal glucose
CPT/HCPCS: 36415; 80053; 80061; 83036; 84153

== ENCOUNTER 2023-07-08 07:54 | Outpatient (AMB) | payer OTHER, SELFPAY ==
--- NOTE | 2023-07-08 07:57 | MHC.PC.OV ---
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 Pmhx significant for HTN, HLD, impaired glucose metabolism Concern--> continues to have tinnitus in his right ear to which we attribute to his sinus issues. Recently did have a bed pharyngitis was thought to be related to thrush. ? .. ? HTN:? Blood pressure reports systolic 115- 120 systolic.? Blood pressure today in office acceptable..? No report of headaches, CP, SOB. .. Borderline high cholesterol: Most recent fasting lipids showing improved total cholesterol. Will work on lifestyle modifications to reduce his high cholesterol. .. ?impaired glucose metabolism:? Most recent fasting blood sugar still slightly elevated in A1c slightly improved. Will continue to work on lifestyle and dietary modifications. Vaccine:? Up-to-date with pneumonia and tetanus, UTD with COVID vacc. UTD with shingles vaccine. ? colonoscopy he did have polyp that was tubular adenomatous in 2017, now needs repeat. Sees Dr Cormier, has upcoming appointment Laboratory Tests 01/01/23 07/06/23 07:10 07:20 Fasting Glucose 115 H 123 H Hemoglobin A1c % 5.8 5.6 Cholesterol 204 H 193 LDL Cholesterol, C alc 135 H 120 H PSA Screen 1.13 PFSH Surgical History Ruptured tendon Family History Father COPD (chronic obstructive pulmonary disease) Mother No problems noted. Maternal Grandmother Colon cancer Sister In good health DMII (diabetes mellitus, type 2) Daughter In good health Brother Mental health disorder Substance use disorder Social History (Updated 07/08/23 @ 08:15 by Gregory Ayala PA-C) Housing: House Alcohol intake: current Alcohol intake frequency: a few times a month Alcohol type: beer and wine Patient Tobacco Use Status: Former Tobacco user (12 years ago) Quit Date: 13 years ago Tobacco use type: Cigarette e-Cigarette/Vaping Use: Never Used Second Hand Smoke Exposure: No service: No Current occupational status: employed Current occupation: [employer] Current occupational exposures/hazards: No Cognitive needs: No Hearing needs: No Vision needs: Yes (glasses) Questionnaire Thrive Questionnaire Date Thrive assessed: 05/12/23 ARCELIA-7 AMB Questionnaire ARCELIA-7 Date ARCELIA - 7 assessed: 05/12/23 Source: Developed by Drs. Joshua Sumner, Amber Aguila, Darío Reeves and colleagues, with an educational debra from [employer]. Review of Systems Const Denies body aches, Denies chills, Denies excessive sweating, Denies fatigue, Denies fever(s) and Denies headache(s) Eyes Denies blurry vision ENT Denies dysphagia, Denies vertigo, Denies dizziness, Denies headache(s), Denies hearing loss and Denies tinnitus Card Denies chest pain, Denies chest pain with activity, Denies syncope, Denies irregular heart rhythm and Denies dyspnea Resp Denies chest congestion, Denies cough, Denies hemoptysis, Denies dyspnea and Denies wheezing GI Denies abdominal pain, Denies melena, Denies hematochezia, Denies coffee ground emesis, Denies dysphagia, Denies diarrhea, Denies nausea and Denies vomiting Denies difficulty urinating, Denies dysuria, Denies urinary frequency, Denies urinary hesitancy and Denies urinary urgency Musc Denies arthralgias, Denies limited range of motion, Denies muscle cramps and Denies muscle weakness Skin/Breast Denies rash and Denies skin ulcer Neuro Denies Abnormal speech present, Denies confusion, Denies vertigo, Denies dizziness, Denies syncope, Denies headache(s), Denies memory loss and Denies seizure-like activity Psych Denies anxiety, Denies confusion, Denies depression, Denies memory loss, Denies panic attacks and Denies paranoia Endo Denies excessive sweating, Denies fatigue, Denies flushing, Denies polydipsia and Denies polyuria Aller/Immun Denies wheezing Physical exam (Primary Care) Vital Signs: Last Vital Signs BP 108/70 07/08/23 07:58 BMI result Body Mass Index 27.3 Tobacco/Smoking Status: Tobacco use Status Tobacco use date assessed 05/12/23 07/08/23 08:05 Patient Tobacco Use Status Former Tobacco user (12 07/08/23 08:15 years ago) Tobacco use type Cigarette 07/08/23 08:15 e-Cigarette/Vaping Use Never Used 07/08/23 08:15 Thrive Assessment: Date of Thrive Assessment Date Thrive assessed 05/12/23 07/08/23 08:05 Const General: cooperative, comfortable, no acute distress, alert and awake; No confusion Orientation/consciousness: oriented to person, oriented to place, patient oriented x3 and No confusion HENMT Head: Yes normocephalic Ears: external ears normal and TM's normal bilaterally Face and sinus: No sinus tenderness Mouth: Normal oral and palatal mucosa present and tongue normal Teeth and gingiva: dentition normal and gingiva normal Throat: Yes posterior oropharynx normal, Yes tonsils normal and Yes uvula midline Eyes Conjunctivae: conjunctivae normal Sclerae: sclerae normal Pupils: Equal, round and reactive pupils present EOM: EOMs intact bilaterally Direct Ophthalmoscopy: No no photophobia Neck Neck: Yes no lymphadenopathy, No tender and Yes no JVD Thyroid: Thyroid normal Carotids: no bruits Chest Chest palpation & inspection: no tenderness Resp Effort & Inspection: normal respiratory effort, no audible wheezes, not labored and no stridor Auscultation: no crackles, no rales, no rhonchi and no wheezes Cardio Jugular venous distension: no JVD Rate: regular rate, not bradycardic and not tachycardic Rhythm: regular rhythm Bruits: no carotid bruits Peripheral pulses: Peripheral pulses 2+ throughout GI Inspection: Yes normal to inspection, No abdominal wall ecchymosis and No visible herniation Palpation (GI): Soft to palpation, nontender, no guarding, not rigid and No hepatosplenomegaly present Auscultation: normoactive bowel sounds General: Yes no CVA tenderness Back/Spine/Pelvis Back: no CVA tenderness and No back tenderness Cervical Spine: cervical ROM normal Thoracic/Lumbar Spine: thoracic and lumbar spine normal to inspection, straight leg raise negative bilaterally, No thoraco-lumbar ROM limited and No lumbar spinal tenderness Skin Lesions: no lesions Rashes: no rashes Wounds: no wounds Neuro General: oriented to person, oriented to place, patient oriented x3, CN's II-XI intact bilaterally and No confusion Cranial nerves: Yes Equal, round and reactive pupils present and Yes Normal accommodation reflex present Cognition (Neuro): normal cognition Speech: No Abnormal speech present Gait exam (Neuro): Normal gait present Motor exam (neuro): 5/5 motor strength present throughout Extrem Right upper extremity: full ROM; no cyanosis Left upper extremity: full ROM; no cyanosis Right lower extremity: no edema Left lower extremity: no edema Psych Appearance: grossly normal Mental Status: mental status grossly normal Affect: normal affect Attitude: cooperative Thought process: Normal thought process present Assessment and Plan Assessment & Plan (1) Annual physical exam: Code(s): Z00.00 - Encounter for general adult medical examination without abnormal findings (2) HLD (hyperlipidemia): Code(s): E78.5 - Hyperlipidemia, unspecified Qualifiers: Hyperlipidemia type: pure hypercholesterolemia Qualified Code(s): E78.00 - Pure hypercholesterolemia, unspecified Plan: Patient continues to work on lifestyle modifications to reduce his cholesterol. Most recent lipid panel acceptable total cholesterol below goal LDL to be below 160. (3) HTN (hypertension): Code(s): I10 - Essential (primary) hypertension Qualifiers: Hypertension type: essential hypertension Qualified Code(s): I10 - Essential (primary) hypertension Plan: Patient's blood pressure acceptable today in office. Will continue his current dose of lisinopril 20 mg. Goal blood pressure to be below 140/90 (4) Impaired glucose metabolism: Code(s): R73.09 - Other abnormal glucose Plan: Patient fasting blood sugar still remains slightly elevated. A1c improved , he will continue to work on lifestyle modifications on reducing carbohydrates in his diet. Orders: Orders Hemoglobin A1c Today R73.09 - Other abnormal glucose Comprehensive [place]. Panel Fast Today R73.09 - Other abnormal glucose Complete Blood Count no Diff Today I10 - Essential (primary) hypertension Microalbumin, Random (w Creat) Today I10 - Essential (primary) hypertension Prostate Specific Antigen Scr Today I10 - Essential (primary) hypertension, Z12.5 - Encounter for screening for malignant neoplasm of prostate Coding Level of Care Code Est Pt Prev Care 40-64y(47181) Diagnoses Annual physical exam Z00.00 Pure hypercholesterolemia E78.00 Hyperlipidemia type: pure hypercholesterolemia Essential hypertension I10 Hypertension type: essential hypertension Impaired glucose metabolism R73.09
[2023-07-08 07:58] VITALS: BP 108/70; BMI 27.3
== END 2023-07-08 08:32 | disposition home or self-care (01) ==
PROVIDERS: Visit Provider Physician Assistant
DX: Z00.00 Encounter for general adult medical examination without abnormal findings (principal); E78.00 Pure hypercholesterolemia, unspecified; I10 Essential (primary) hypertension; R73.09 Other abnormal glucose
CPT/HCPCS: 99396

== ENCOUNTER 2024-01-11 07:07 | Outpatient (REF) | payer OTHER, SELFPAY ==
[2024-01-11 07:37] LABS: Hematocrit 44.4 % (42.0-52.0); Mean Corpuscular HGB Conc 33.8 g/dl (31.0-36.0); Mean Corpuscular Hemoglobin 29.6 pg (27.0-33.0); Mean Corpuscular Volume 87.6 fL (80.0-98.0); Mean Platelet Volume 9.1 fL (9.4-12.4); Platelet Count 282 X10*3/uL (160-400); Red Blood Count 5.07 X10*6/uL (4.60-5.80); Red Cell Distribution Width 12.7 % (11.0-16.0)
[2024-01-11 08:07] LABS: Estimated Average Glucose 123 mg/dL; Hemoglobin A1C 157.1315 umol/L; Hemoglobin A1c % 5.9 % (<6.0); Total Hemoglobin (HGBA1C) 3832.9739 umol/L
[2024-01-11 08:09] LABS: Alanine Aminotransferase 25 U/L (0-40); Albumin Level 4.3 g/dL (3.5-5.0); Alkaline Phosphatase 68 U/L (39-117); Anion Gap 12 (12-20); Aspartate Amino Transferase 17 U/L (5-37); Bilirubin Total 0.8 mg/dL (0.0-1.0); Blood Urea Nitrogen 17 mg/dL (9-16); Calcium 9.4 mg/dL (8.4-10.2); Carbon Dioxide 26 mmol/L (22-29); Chloride 107 mmol/L (96-108); Estimated Glomerular Filt Rate > 60; Glucose Fasting 124 mg/dL (60-99); Potassium 4.1 mmol/L (3.3-5.1); Sodium 141 mmol/L (135-145); Total Protein 6.8 g/dL (6.5-8.0)
[2024-01-11 08:13] LABS: Creatinine Urine 112.21 mg/dL; Microalbumin Urine < 5.0 mg/L
[2024-01-11 08:28] LABS: Prostate Specific Antigen Scr 1.06 ng/mL (<0.05-4.0)
== END 2024-01-11 07:08 | disposition home or self-care (01) ==
LOC: HO.LAB 07:07
PROVIDERS: PCP Physician Assistant; Visit Provider Physician Assistant
DX: R73.09 Other abnormal glucose (principal); I10 Essential (primary) hypertension; Z12.5 Encounter for screening for malignant neoplasm of prostate
CPT/HCPCS: 36415; 80053; 82043; 82570; 83036; 84153; 85027

== ENCOUNTER 2024-01-12 08:00 | Outpatient (AMB) | payer OTHER, SELFPAY ==
[2024-01-12 08:14] VITALS: BP 122/82; PULSE 71; O2SAT 97; BMI 27.5
--- NOTE | 2024-01-12 08:14 | MHC.PC.OV ---
Vital Signs 01/12/24 08:14 Height 5 ft 10 in Weight 192 lb BMI 27.5 BP 122/82 Blood Pressure Location Lt brachial Position Sitting Pulse 71 Pulse Source Pulse Oximeter Pulse Oximetry (%) 97 Oxygen Delivery Method Room Air Intake Visit Reasons: f/u HTN / IGM Allergies loratadine [From CLARITIN] Allergy (Unknown, Verified 01/12/24 08:21) TACHYCARDIA Medication List - Last Reconciled 01/12/24 by Gregory Ayala PA-C ibuprofen 800 mg PO Q8H PRN 7 days lisinopril 20 mg PO DAILY 90 days Tobacco use date assessed: 05/12/23 Dental Screening Dental Screen Date: 05/12/23 HPI f/u HTN / IGM HPI Details Joshua is a 63 y/o M here today for follow-up visit ? Pmhx significant for HTN, HLD, impaired glucose metabolism Concern--> he continues to have right ear tinnitus over the last several years. He denies any pain or discharge from the ear. He does use a allergy nasal spray though does not notice any difference in his tinnitus. We did discuss perhaps sending him for a hearing exam though he would like to hold off on this for now . Also he does mentioned having some right shoulder pain when abducting his upper extremity. He can not recall any acute injury to his right shoulder though is considering seeing orthopedics for evaluation perhaps MRI to evaluate his rotator cuff. ? .. ? HTN:? Blood pressure reports systolic 115- 120 systolic.? Blood pressure today in office acceptable..? No report of headaches, CP, SOB. .. Borderline high cholesterol: His most recent lipid panel continues to show borderline high total cholesterol. He does understand he needs to work on dietary modifications. Will work on lifestyle modifications to reduce his high cholesterol. .. ?impaired glucose metabolism:? Most recent fasting blood sugar still slightly elevated in A1c in prediabetic range. Did discuss perhaps trying metformin to help reduce his sugars though he would like to work on dietary modifications. Laboratory Tests 07/06/23 01/11/24 01/11/24 07:20 07:22 07:24 RBC 5.07 Hgb 15.0 Fasting Glucose 123 H 124 H Hemoglobin A1c % 5.6 5.9 PSA Screen 1.13 1.06 Urine Microalbumin < 5.0 [facility] Medical History (Updated 10/09/24 @ 14:56 by Gregory Ayala PA-C) SI (sacroiliac) joint dysfunction Surgical History Ruptured tendon Family History Father COPD (chronic obstructive pulmonary disease) Mother No problems noted. Maternal Grandmother Colon cancer Sister In good health DMII (diabetes mellitus, type 2) Daughter In good health Brother Mental health disorder Substance use disorder Social History Housing: House Alcohol intake: current Alcohol intake frequency: a few times a month Alcohol type: beer and wine Patient Tobacco Use Status: Former Tobacco user (12 years ago) Tobacco use type: Cigarette e-Cigarette/Vaping Use: Never Used Second Hand Smoke Exposure: No service: No Current occupational status: employed Current occupation: [employer] Current occupational exposures/hazards: No Cognitive needs: No Hearing needs: No Vision needs: Yes (glasses) Questionnaire PHQ-9 Over the last 2 weeks, how often have you been bothered by any of the following problems? 1. Little interest or pleasure in doing things: not at all 2. Feeling down, depressed, or hopeless: not at all 3. Trouble falling or staying asleep, or sleeping too much: not at all 4. Feeling tired or having little energy: not at all 5. Poor appetite or overeating: not at all 6. Feeling bad about yourself - or that you are a failure or have let yourself or your family down: not at all 7. Trouble concentrating on things, such as reading the newspaper or watching television: not at all 8. Moving or speaking so slowly that other people could have noticed. Or the opposite - being so fidgety or restless that you have been moving around a lot more than usual: not at all 9. Thoughts that you would be better off or of hurting yourself in some way: not at all Total score: 0 Depression Screening Interpretation: Negative Depression Screening Done: Yes 96211 - PHQ-9 Billing: Yes Source: Developed by Drs. Joshua Sumner, Amber Aguila, Darío Reeves and colleagues, with an educational debra from [employer]. Thrive Questionnaire Date Thrive assessed: 05/12/23 Are you currently unemployed and looking for a job?: No AUDIT C Alcohol Use Questionnaire (AUDIT-C) 1. How often do you have a drink containing alcohol?: 2-4 times a month 2. How many drinks containing alcohol do you have on a typical day when you are drinking?: 1 or 2 3. How often do you have six or more drinks on one occasion?: Never Total Score: 2 ARCELIA-7 AMB Questionnaire ARCELIA-7 Date ARCELIA - 7 assessed: 05/12/23 Source: Developed by Drs. Joshua Sumner, Amber Aguila, Darío Reeves and colleagues, with an educational debra from [employer]. Review of Systems Const Denies headache(s) Eyes Denies loss of vision ENT Denies vertigo, Denies dizziness, Denies headache(s) and Denies sore throat Card Denies chest pain, Denies leg edema and Denies lightheadedness Resp Denies cough, Denies hemoptysis and Denies wheezing GI Denies abdominal pain, Denies melena, Denies constipation, Denies diarrhea and Denies vomiting Denies dysuria, Denies urinary frequency and Denies urinary urgency Musc Denies arthralgias, Denies joint swelling, Denies numbness and Denies tingling Neuro Denies Abnormal speech present, Denies behavioral changes, Denies vertigo, Denies dizziness, Denies headache(s), Denies loss of vision, Denies memory loss, Denies numbness and Denies tingling Psych Denies anxiety, Denies behavioral changes, Denies depression, Denies memory loss and Denies panic attacks Arash/Lymph Denies easy bleeding and Denies easy bruising Aller/Immun Denies wheezing Physical exam (Primary Care) Vital Signs: Last Vital Signs Pulse 71 01/12/24 08:14 BP 122/82 01/12/24 08:14 Pulse Ox 97 01/12/24 08:14 Oxygen Delivery Method Room Air 01/12/24 08:14 BMI result Body Mass Index 27.5 Tobacco/Smoking Status: Tobacco use Status Tobacco use date assessed 05/12/23 01/12/24 08:18 Patient Tobacco Use Status Former Tobacco user (12 01/12/24 08:18 years ago) Tobacco use type Cigarette 01/12/24 08:18 e-Cigarette/Vaping Use Never Used 01/12/24 08:18 PHQ-9: PHQ-9 Score PHQ-9: Total score 0 01/12/24 08:23 Depression Screening Interpretation: Negative Thrive Assessment: Date of Thrive Assessment Date Thrive assessed 05/12/23 01/12/24 08:18 Const General: healthy appearing, no acute distress, alert and awake Nutritional Appearance: well nourished Orientation/consciousness: oriented to person, oriented to place and oriented to time HENMT Ears: TM's normal bilaterally General nose exam: Normal nasal mucous membranes and turbinates present Eyes Conjunctivae: conjunctivae normal Sclerae: sclerae normal Pupils: Equal, round and reactive pupils present Neck Neck: Yes no lymphadenopathy and Yes no JVD Thyroid: Thyroid normal Carotids: no bruits Resp Effort & Inspection: normal respiratory effort and not tachypneic Auscultation: no crackles, no rales, no rhonchi and no wheezes Cardio Rate: regular rate Rhythm: regular rhythm Heart sounds: no murmurs and normal S1 and S2 GI Palpation (GI): Soft to palpation, nontender, no hepatomegaly and no splenomegaly Auscultation: normal bowel sounds Skin General skin exam: no rashes or lesions noted and dry skin Neuro General: oriented to person, oriented to place and oriented to time Cranial nerves: Yes Equal, round and reactive pupils present Speech: No Abnormal speech present Gait exam (Neuro): Normal gait present Motor exam (neuro): no tremor noted Extrem Right upper extremity: full ROM Left upper extremity: full ROM Right lower extremity: full ROM; no edema Left lower extremity: full ROM; no edema Psych Mental Status: mental status grossly normal Speech and movement: Normal speech and movement present Affect: normal affect Attitude: cooperative Thought process: Normal thought process present Coding Level of Care Code Est Pt Level 4 (95707) Diagnoses Essential hypertension I10 Hypertension type: essential hypertension Pure hypercholesterolemia E78.00 Hyperlipidemia type: pure hypercholesterolemia Mild intermittent asthma without complication J45.20 Asthma complication type: uncomplicated Asthma persistence: intermittent Asthma severity: mild Tinnitus of right ear H93.11 Laterality: right Assessment & Plan Assessment & Plan (1) HTN (hypertension): Code(s): I10 - Essential (primary) hypertension Category: Medical Qualifiers: Hypertension type: essential hypertension Qualified Code(s): I10 - Essential (primary) hypertension Plan: Patient's blood pressure acceptable today in office. He continues with the use lisinopril 20 mg with good effect. Goal blood pressures to remain below 140/90 (2) HLD (hyperlipidemia): Code(s): E78.5 - Hyperlipidemia, unspecified Category: Medical Qualifiers: Hyperlipidemia type: pure hypercholesterolemia Qualified Code(s): E78.00 - Pure hypercholesterolemia, unspecified Plan: Patient's most recent lipid panel showing borderline high cholesterol. He will work on lifestyle and dietary modifications to reduce his borderline high cholesterol. (3) Asthma: Code(s): J45.909 - Unspecified asthma, uncomplicated Category: Medical Qualifiers: Asthma complication type: uncomplicated Asthma persistence: intermittent Asthma severity: mild Qualified Code(s): J45.20 - Mild intermittent asthma, uncomplicated Plan: Patient's asthma has been well controlled, has not had to use any albuterol inhaler in quite some time. Does use a allergy nasal spray which has been helpful. (4) Tinnitus: Code(s): H93.19 - Tinnitus, unspecified ear Category: Medical Qualifiers: Laterality: right Qualified Code(s): H93.11 - Tinnitus, right ear Plan: Has longstanding issue with a right-sided tinnitus. Have not evaluated by ENT as of yet. We did discuss perhaps doing a hearing exam though will like to hold off on this for now. Orders: Orders Lipid Panel Today E78.00 - Pure hypercholesterolemia, unspecified Prostate Specific Antigen Scr Today I10 - Essential (primary) hypertension, Z12.5 - Encounter for screening for malignant neoplasm of prostate Hemoglobin A1c Today R73.09 - Other abnormal glucose Comprehensive [place]. Panel Fast Today R73.09 - Other abnormal glucose Complete Blood Count no Diff Today I10 - Essential (primary) hypertension Microalbumin, Random (w Creat) Today I10 - Essential (primary) hypertension Patient Instructions: Goal: Blood pressure to remain below 140/90, total cholesterol to be below 200 Barriers: Adherence to physical activity and healthy eating habits
== END 2024-01-12 08:35 | disposition home or self-care (01) ==
PROVIDERS: PCP Physician Assistant; Visit Provider Physician Assistant
DX: I10 Essential (primary) hypertension (principal); E78.00 Pure hypercholesterolemia, unspecified; J45.20 Mild intermittent asthma, uncomplicated; H93.11 Tinnitus, right ear

== ENCOUNTER → 2024-01-12 08:00 | Outpatient (BNVA) | payer OTHER, SELFPAY | PROVIDERS: PCP Physician Assistant; Visit Provider Physician Assistant ==

== ENCOUNTER 2024-01-28 06:33 | Day surgery (SDC) | payer OTHER, SELFPAY ==
[2024-01-26 14:35] VITALS: BMI 27.0
[2024-01-28 06:43] VITALS: BMI 26.7
[2024-01-28] MEDS: Lactated Ringers 1,000 ML 80 ML IVCONT (06:49)
[2024-01-28 06:56] VITALS: BP 129/79; PULSE 80; RESP 18; TEMP 36.6; O2SAT 97
--- NOTE | 2024-01-28 07:22 | P.CONAN_ITS ---
HPI - Anesthesia Eval Consult details Narrative: For colonoscopy. [facility] Active Problems Active Problems: All Active Problems Tinnitus (Acute) Impaired glucose metabolism (Acute) Asthma (Acute) Tubular adenoma of colon (Acute) Annual physical exam (Acute) HLD (hyperlipidemia) (Acute) HTN (hypertension) (Acute) Past Medical History Medical History PVC (premature ventricular contraction) HLD (hyperlipidemia) HTN (hypertension) Asthma SI (sacroiliac) joint dysfunction Family History Family History Father COPD (chronic obstructive pulmonary disease) Mother No problems noted. Maternal Grandmother Colon cancer Sister In good health DMII (diabetes mellitus, type 2) Daughter In good health Brother Mental health disorder Substance use disorder Family history of problems with anesthesia: No Surgical History Surgical History History of esophagogastroduodenoscopy (EGD) H/O colonoscopy Hx of cardiac catheterization Ruptured tendon History of Problems with Anesthesia: No Social History Social History Housing: House Are you a primary day care supervisor to a significant other at home: No Do you presently have visiting nurse or other home services: No Alcohol intake: current Alcohol intake frequency: a few times a month Alcohol type: beer and wine Patient Tobacco Use Status: Former Tobacco user Tobacco use type: Cigarette e-Cigarette/Vaping Use: Never Used Second Hand Smoke Exposure: No Have you been hit, kicked, punched, or otherwise hurt by someone within the past year? If so, by whom?: No Are you DNR?: No Advance Directives: No Advance Directives Information Provided: Yes Recently lost weight without trying: No Nutrition Risks: No Nutritional Risk service: No Current occupational status: employed Current occupation: [employer] Current occupational exposures/hazards: No Cognitive needs: No Hearing needs: No Vision needs: Yes (glasses) Meds Allergies Allergy/AdvReac Type Severity Reaction Status Date / Time loratadine [From CLARITIN] Allergy Unknown TACHYCARDIA Verified 01/28/24 06:58 Active Medications: Current Medications Lactated Ringer's (Lr) 1,000 mls @ 80 mls/hr IVCONT .[id number] [facility] Last Admin: 01/28/24 06:49 Dose: 80 mls/hr Sodium Biphosphate/Sodium Phosphate (Sodium Phosphate,Otero-Dibasic 133 Ml Enema) 133 ml OH ONCE PRN PRN Reason: Poor Colonoscopy Prep Results Exam Height,Weight and Vital Signs: Height 5 ft 10 in Weight 84.368 kg Last Vital Signs Temp 97.9 F 01/28/24 06:56 Pulse 80 01/28/24 06:56 Resp 18 01/28/24 06:56 BP 129/79 01/28/24 06:56 Pulse Ox 97 01/28/24 06:56 O2 Del Method Room Air 01/28/24 06:56 Airway Mallampati Class: II TM Dist: <=3cm Neck ROM: Full Loose/Missing/Broken Teeth: No Heart: ok Lungs: ok Assessment and Plan Assessment Anesthesia Assessment: Anesthesia Plan Discussed and Chart Reviewed Final Anesthetic Review Family History of Problems with Anesthesia: No History of Problems with Anesthesia: No NPO: Yes ASA Class: II Final Preanesthetic Review: No Changes in Pt Med Stat, Meds/Allgs Chart Reviewed, Consent Obtained/Reviewed and Anes Risks/Benef Reviewed Patient Risk: Low Procedure Risk: Low Anesthetic Plan Anesthetic Plan: MAC: and Agree w/ Assess. and Plan Disposition: Standard PACU
[2024-01-28 08:30] VITALS: BP 95/70; PULSE 83; RESP 18; TEMP 36.3; O2SAT 95
--- NOTE | 2024-01-28 08:31 | P.BOP_ITS ---
Brief Operative Note Date of Service: 01/28/24 Pre-op diagnosis: Screening Post-op diagnosis: other (Diverticulosis) Procedure: Colonoscopy to the cecum Surgeon: Joshua Cormier MD Anesthesia: MAC Was an Community Health Nursing Director used for this Procedure?: No Estimated blood loss (mL): 0 Pathology: none sent Condition: stable Disposition: PACU
--- NOTE | 2024-01-28 08:45 | OP_ITS ---
DATE OF SERVICE: 01/28/2024 SURGEON: Joshua Cormier MD INDICATIONS: The patient presents for evaluation of colorectal cancer screening and personal history of tubular adenoma of the colon. Full consent was obtained from him for this, including risks of bleeding and perforation. PREOPERATIVE DIAGNOSIS: POSTOPERATIVE DIAGNOSIS: PROCEDURE PERFORMED: Colonoscopy to the cecum. ESTIMATED BLOOD LOSS: COMPLICATIONS: ANESTHESIA: Medications used, monitored anesthesia care. ASSISTANTS: SPECIMENS: PREOPERATIVE DIAGNOSES: Colorectal cancer screening and personal history of colon polyps. POSTOPERATIVE DIAGNOSES: Colorectal cancer screening and personal history of colon polyps, diverticulosis, and internal hemorrhoids. DESCRIPTION OF PROCEDURE: The patient was placed in the left lateral decubitus position. The digital rectal exam revealed no abnormalities. The Olympus video pediatric colonoscope was entered into the rectum and advanced easily to the cecum. Once in the cecum, identified normal-appearing cecal pouch with appendiceal orifice and a normal-appearing ileocecal valve. The entire cecum and ileocecal valve appeared normal. The scope was slowly withdrawn assessing all mucosal surfaces carefully. Preparation was excellent. I did not visualize any sign of polyps, colitis, nor angiodysplasia. There was a mild amount of sigmoid diverticulosis. In the rectum, scope was retroflexed visualizing internal hemorrhoids, but no other pathology. The rectal mucosa appeared normal. Scope was straightened and withdrawn from the patient. He tolerated the procedure well and was returned to recovery area in stable condition. IMPRESSION: 1. Diverticulosis. 2. Internal hemorrhoids. PLAN: Given his previous history of a tubular adenoma I would recommend a followup coloscopy in 5 years. He will otherwise see me on a p.r.n. basis. Joshua Cormier MD RMFernanda/MODL / [id number]
[2024-01-28 08:50] VITALS: BP 105/80; PULSE 76; RESP 17; TEMP 36.3; O2SAT 96
== END 2024-01-28 09:25 | disposition home or self-care (01) ==
PROVIDERS: PCP Physician Assistant; Visit Provider Internal Medicine
PROC: 0DJD8ZZ Inspection of Lower Intestinal Tract, Via Natural or Artificial Opening Endoscopic (ICD-10-PCS; CPT 45378; principal; 2024-01-28 07:30)
DX: Z12.11 Encounter for screening for malignant neoplasm of colon (principal); Z86.0101 Personal history of adenomatous and serrated colon polyps; K57.30 Diverticulosis of large intestine without perforation or abscess without bleeding; K64.8 Other hemorrhoids; I10 Essential (primary) hypertension; E78.5 Hyperlipidemia, unspecified; J45.909 Unspecified asthma, uncomplicated; I49.3 Ventricular premature depolarization; M53.3 Sacrococcygeal disorders, not elsewhere classified; Z79.1 Long term (current) use of non-steroidal anti-inflammatories (NSAID); Z79.899 Other long term (current) drug therapy; Z87.891 Personal history of nicotine dependence
CPT/HCPCS: 45378; J2003; J2704

== ENCOUNTER 2024-04-17 16:39 | Outpatient (AMB) | payer OTHER, SELFPAY ==
--- NOTE | 2024-04-17 16:41 | A.OFFPC_ITS ---
Vital Signs 04/17/24 16:44 Height 5 ft 10 in Weight 192 lb 4 oz BMI 27.6 BP 134/84 Blood Pressure Location Lt brachial Position Sitting Pulse 104 H Pulse Source Pulse Oximeter Pulse Oximetry (%) 96 Oxygen Delivery Method Room Air Intake Visit Reasons: blowing out in the nose Intake Note: NF patient is here for a positive at-home COVID test with the following symptoms: nasal congestion, cough, headaches, and sore throat. The patient denies experiencing diarrhea or vomiting. Saas Architect Required: No Accompanied by: Self / Same As Patient Allergies loratadine [From CLARITIN] Allergy (Unknown, Verified 04/17/24 16:49) TACHYCARDIA Tobacco use date assessed: 04/17/24 Dental Screening Dental Screen Date: 05/12/23 HPI blowing out in the nose HPI Details feeling bad The patient is a 63-year-old male presenting with a COVID-19 infection. The symptoms began last while he was at work, where he experienced malaise and subsequently left work early. The patient stayed home on Wednesday and continued to feel unwell through the weekend, leading to a COVID-19 test at noon on the following Wednesday, which returned positive. Initial testing earlier in the day had been negative. Symptoms include significant nasal congestion with green nasal discharge and a severe headache described as feeling like his head might explode. The patient reports profound fatigue and a persistent cough. He has been managing symptoms with ewgo-vcb-sownqch medications such as ibuprofen, although advised to consider Tylenol instead. He has already received his COVID- 19 vaccination. His partner, who is a nurse, noted diminished lung sounds a day and a half ago. There is no history of antibiotic treatment discussed, and he currently inquires about antiviral therapy, expressing concern about the safety and side effects of such medication. The patient has experienced progressive w orsening of symptoms, exacerbated by lack of rest. He requests medical documentation to excuse his absence from work, noting that he last worked on the 13 of April. [facility] Medical History (Updated 04/17/24 @ 17:00 by Levy De La Torre MD) PVC (premature ventricular contraction) HLD (hyperlipidemia) HTN (hypertension) Asthma SI (sacroiliac) joint dysfunction Surgical History (Reviewed 04/17/24 @ 16:49 by Rochelle Lopez [facility]) History of esophagogastroduodenoscopy (EGD) H/O colonoscopy Hx of cardiac catheterization Ruptured tendon Family History Father COPD (chronic obstructive pulmonary disease) Mother No problems noted. Maternal Grandmother Colon cancer Sister In good health DMII (diabetes mellitus, type 2) Daughter In good health Brother Mental health disorder Substance use disorder Social History Housing: House Are you a primary acute care physician to a significant other at home: No Do you presently have visiting nurse or other home services: No Alcohol intake: current Alcohol intake frequency: a few times a month Alcohol type: beer and wine Patient Tobacco Use Status: Former Tobacco user Tobacco use type: Cigarette e-Cigarette/Vaping Use: Never Used Second Hand Smoke Exposure: No service: No Current occupational status: employed Current occupation: [employer] Current occupational exposures/hazards: No Cognitive needs: No Hearing needs: No Vision needs: Yes (glasses) Questionnaire PHQ-9 Over the last 2 weeks, how often have you been bothered by any of the following problems? 1. Little interest or pleasure in doing things: not at all 2. Feeling down, depressed, or hopeless: not at all 3. Trouble falling or staying asleep, or sleeping too much: not at all 4. Feeling tired or having little energy: not at all 5. Poor appetite or overeating: not at all 6. Feeling bad about yourself - or that you are a failure or have let yourself or your family down: not at all 7. Trouble concentrating on things, such as reading the newspaper or watching television: not at all 8. Moving or speaking so slowly that other people could have noticed. Or the opposite - being so fidgety or restless that you have been moving around a lot more than usual: not at all 9. Thoughts that you would be better off or of hurting yourself in some way: not at all Total score: 0 Depression Screening Interpretation: Negative Depression Screening Done: Yes 58825 - PHQ-9 Billing: Yes Source: Developed by Drs. Joshua Sumner, Amber Aguila, Darío Reeves and colleagues, with an educational debra from [employer]. Thrive Questionnaire Date Thrive assessed: 04/17/24 I am a: Patient What is your living situation today?: I have a steady place to live Within the past 12 months, did the food you bought not last and you didn't have the money to get more?: Never true Within the past 12 months, did you worry whether your food would run out before you got money to buy more?: Never true Do you have trouble paying for medicines?: No Do you have trouble getting transportation to medical appointments?: No Do you have trouble paying your heating and electricity bill?: No Do you have trouble taking care of your child, family member or friend?: No Do you have trouble with day-to-day activities such as bathing, preparing meals, shopping, managing finances, etc.?: No Are you currently unemployed and looking for a job?: No Are you interested in more education?: No Please select the resources that you would like help with: None Currently or been in a relationship where the following occur: No concerns reported THRIVE Score: 0 AUDIT C Alcohol Use Questionnaire (AUDIT-C) 1. How often do you have a drink containing alcohol?: Monthly or less 2. How many drinks containing alcohol do you have on a typical day when you are drinking?: 1 or 2 3. How often do you have six or more drinks on one occasion?: Never Total Score: 1 ARCELIA-7 AMB Questionnaire ARCELIA-7 Date ARCELIA - 7 assessed: 04/17/24 Feeling nervous, anxious, or on edge: 0 = Not at all Not being able to stop or control worryin = Not at all Worrying too much about different things: 0 = Not at all Trouble relaxin = Not at all Being so restless that it is hard to sit still: 0 = Not at all Becoming easily annoyed or irritable: 0 = Not at all Feeling afraid as if something awful might happen: 0 = Not at all Total ARCELIA-7 score (0-4 normal; 5-9 mild; 10-14 moderate; 15-21 severe): 0 Source: Developed by Drs. Joshua Sumner, Amber Aguila, Darío Reeves and colleagues, with an educational debra from [employer]. ARCELIA-7 Assessment Billing ARCELIA-7 Assessment Tool: ARCELIA-7 Assessment 34457 Physical exam (Primary Care) Vital Signs: Last Vital Signs Pulse 104 H 04/17/24 16:44 BP 134/84 04/17/24 16:44 Pulse Ox 96 04/17/24 16:44 Oxygen Delivery Method Room Air 04/17/24 16:44 BMI result Body Mass Index 27.6 Tobacco/Smoking Status: Tobacco use Status Tobacco use date assessed 04/17/24 04/17/24 16:53 Patient Tobacco Use Status Former Tobacco user 04/17/24 16:41 Tobacco use type Cigarette 04/17/24 16:41 e-Cigarette/Vaping Use Never Used 04/17/24 16:41 PHQ-9: PHQ-9 Score PHQ-9: Total score 0 04/17/24 16:54 Depression Screening Interpretation: Negative Thrive Assessment: Date of Thrive Assessment Date Thrive assessed 04/17/24 04/17/24 16:53 Currently or been in a relationship where the following occur: No concerns reported Const General: alert; No acute distress Eyes Conjunctivae: conjunctivae normal Resp Auscultation: clear to auscultation bilaterally Cardio Rate: regular rate Rhythm: regular rhythm GI Inspection: Yes normal to inspection Extrem General: Yes normal to inspection and No edema Results AMB Hemoglobin A1c AMB Hemoglobin A1c 6.0 % Last Edit by MATTHIAS Crandall on 04/17/24 16:54 Results Reviewed Results Reviewed: Laboratory Last Values Hgb A1c (Clinic) 6.0 % (4.0-6.0) 04/17/24 16:41 Coding Level of Care Code Est Pt Level 3 (49099) Diagnoses Impaired glucose metabolism R73.09 Mild intermittent asthma without complication J45.20 Asthma complication type: uncomplicated Asthma persistence: intermittent Asthma severity: mild COVID-19 virus infection U07.1 Additional Codes ARCELIA-7 Assessment Billing - ARCELIA-7 Assessment Tool: ARCELIA-7 Assessment 96269 ([id number]) PHQ-9 - 14097 - PHQ-9 Billing: Yes ([id number]) Assessment & Plan Assessment & Plan (1) Impaired glucose metabolism: Code(s): R73.09 - Other abnormal glucose Category: Medical (2) Asthma: Code(s): J45.909 - Unspecified asthma, uncomplicated Category: Medical Qualifiers: Asthma complication type: uncomplicated Asthma persistence: intermittent Asthma severity: mild Qualified Code(s): J45.20 - Mild intermittent asthma, uncomplicated (3) COVID-19 virus infection: Comment: 04/17/2024 Code(s): U07.1 - COVID-19 Category: Medical Plan - Prescribed Paxlovid as the antiviral treatment for the COVID-19 infection, to be taken as a combination of two medications twice daily for five days, as a result of recent positive COVID-19 test. - Advised increased fluid intake and rest. - Discussed potential side effects of Paxlovid, including taste disturbance. - Recommended substitution of ibuprofen with acetaminophen for fever and head pain management, highlighting possible renal concerns with long-term ibuprofen use. - Discussions about the potential need for cough suppressants like dextromethorphan if experiencing a non-productive cough, and the use of mucolytics such as guaifenesin based on the presence and type of cough. - Advised close monitoring at home by his partner, a nurse, for any change in his respiratory status. - Noted the necessity of patient isolation and absence from work, prepared a medical excuse note for the patient's absence from his employment until April 24. - Reinforced the importance of symptomatic relief measures and advised returning to work only once symptom-free and sufficiently recovered. Orders: Orders AMB Hemoglobin A1c Today R73.09 - Other abnormal glucose Medications: New nirmatrelvir-ritonavir 300 mg (150 mg x 2)-100 mg (Paxlovid) take TWO 150 mg tablets of nirmatrelvir with ONE 100 mg tablet of ritonavir twice daily for 5 days PO 30 ea 0RF U07.1 - COVID-19
[2024-04-17 16:44] VITALS: BP 134/84; PULSE 104; O2SAT 96; BMI 27.6
--- OUTSIDE RECORDS SUMMARY | 2024-04-17 19:52 | XMS_ITS | Patient Health Record ---
Author Organization [facility] Address [address] [place] [address] Care Team Providers Care Story Reader Name Role Phone Gregory Ayala Primary Care Provider Unavailab Sabino Chanel Unavailable [phone] ALLERGIES Allergen (clinical drug ingredient) Drug/Non Drug Allergy documented on EMR Reaction Allergy Type Onset Date Status Claritin Unknown Drug Allergy Active REASON FOR REFERRAL No Information MEDICATIONS Medication SIG (Take, Route, Fr equency, Duration) Notes Start Date End Date Status Lisinopril 20 MG Oral for 90 A ctive SOCIAL HISTORY Sex Assigned At : Social History Observation Description Sex Assigned At Unknown PROBLEMS Problem Type ICD Code Onset Dates Problem Status W/U Status Risk SNOMED Code Notes Problem Encounter for screening for malignant neoplasm of colon (Z12.11) Active confirmed 959409481 Problem Encounter for screening for malignant neoplasm of rectum (Z12.12) Active confirmed Screening for malignant neoplasm of rectum (611650410) Problem Gastroesophageal reflux disease, esophagitis presence not specified (K21.9) Active confirmed 508310331 Problem History of adenomatous polyp of colon (Z86.010) Active confirmed History o f adenomatous polyp of colon (462861872) Problem Preprocedural examination (Z01.818) Active confirmed Preprocedural examination (369282937005545 ) Problem Diverticulosis of large intestine without perforation or abscess without bleeding (K57.30) Active confirmed Diverticul ar disease of colon (387030456) VITAL SIGNS Blood pressure diastolic 00 mm Hg 09/17/2023 Height 70 in 09/17/2023 Blood pressure systolic 00 mm Hg 09/17/2023 Weight 188 lbs 09/17/2023 BMI 26.97 kg/m2 09/17/2023 Encounters Encounter Location Date Provider Diagnosis [facility] [address] [place], [place] [id number] 01/28/2024 Sabino Cormier Colon cancer screeni ng Z12.11 ; Personal history of colonic polyps Z86.0100 ; Diverticulosis of large intestine without perforation or abscess without bleeding K57.30 and Other hemorrhoids K64.8 [facility] [address] [phone] 09/17/2023 Sabino Cormier Encounter for screen ing for malignant neoplasm of colon Z12.11 ; Gastroesophageal reflux disease, esophagitis presence not specified K21.9 ; History of adenomatous polyp of colon Z86.010 and Preprocedural examination Z01.818 ASSESSMENTS Encounter Date Diagnosis Assessment Notes Treatment Notes Treatment Clinical Notes 01/28/2024 Colon cancer screeni ng (ICD-10 - Z12.11) 01/28/2024 Personal history of colonic polyps (ICD-10 - Z86.0100) 09/17/2023 Encounter for screen ing for malignant neoplasm of colon (ICD-10 - Z12.11) 09/17/2023 Gastroesophageal ref lux disease, esophagitis presence not specified (ICD-10 - K21.9) 01/28/2024 Diverticulosis of la rge intestine without perforation or abscess without bleeding (ICD-10 - K57.30) 09/17/2023 History of adenomato us polyp of colon (ICD-10 - Z86.010) 01/28/2024 Other hemorrhoids (ICD-10 - K64.8) 09/17/2023 Preprocedural examination (ICD-10 - Z01.818) PLAN OF TREATMENT Future Test Test Name Order Date UPPER GI ENDOSCOPY 12/20/2015 COLONOSCOPY 12/20/2015 COLONOSCOPY 09/17/2023 Insurance Providers Payer Name Payer Address Payer Phone Subscriber Number Group Number Insured Name Patient Relationship to Insured Coverage Start Date Coverage End Date [employer] [place] [address] [address] [place] [address] [id number] SABINO JONES Self - patient is the insured MEDICAL (GENERAL) HISTORY Medical History History ICD Code PVC's--Holter monitor--the p akilah reports that he has had numerous PVC's documented on his Holter monitor--he is followed by Dr. Jimenez--neg. cardiac catheterization in 07/2015--on Toprol Denies CT,DM,CVA,Lung disease,renal dise ase GERD-EGD in 04/2016 with a mi nimal hiatal hernia and minimal changes of reflux. Biopsies were negative for Barth's esophagus. Screening colonoscopy with removal of a tubular adenoma in 04/2016 HTN Surgical History Surgery Date(Month/Year) Torn ligaments and tendons i n his left upper extremity in relation to a fall--Dr. Urias
--- OUTSIDE RECORDS SUMMARY | 2024-04-17 19:52 | XMS_ITS ---
Author Organization [facility] Address [address] [place] [address] Care Team Providers Care Cell Tester Name Role Phone Gregory Ayala Primary Care Provider Unavailab Sabino Chanel Unavailable [phone] ALLERGIES Allergen (clinical drug ingredient) Drug/Non Drug Allergy documented on EMR Reaction Allergy Type Onset Date Status Claritin Unknown Drug Allergy Active REASON FOR VISIT Patient presents today for a SCREENING COLON MEDICATIONS Medication SIG (Take, Route, Fr equency, Duration) Notes Start Date End Date Status Lisinopril 20 MG Oral for 90 A ctive PROBLEMS Problem Type ICD Code Onset Dates Problem Status W/U Status Risk SNOMED Code Notes Problem History of adenomatous polyp of colon (Z86.010) Active confirmed History of adenomatous polyp of colon (006303682) Problem Preprocedural examination (Z01.818) Active confirmed Preprocedural examination (033185726727244 ) VITAL SIGNS BMI 26.97 kg/m2 09/17/2023 Blood pressure systolic 00 mm Hg 09/17/19 24 Blood pressure diastolic 00 mm Hg 024 Height 70 in 09/17/2023 Weight 188 lbs 09/17/2023 Encounters Encounter Location Date Provider Diagnosis [facility] [address] [place] [address] 09/17/2023 Sabino Cormier Encounter for screen ing for malignant neoplasm of colon Z12.11 ; Gastroesophageal reflux disease, esophagitis presence not specified K21.9 ; History of adenomatous polyp of colon Z86.010 and Preprocedural examination Z01.818 ASSESSMENTS Encounter Date Diagnosis Assessment Notes Treatment Notes Treatment Clinical Notes 09/17/2023 Encounter for screen ing for malignant neoplasm of colon (ICD-10 - Z12.11) 09/17/2023 Gastroesophageal ref lux disease, esophagitis presence not specified (ICD-10 - K21.9) 09/17/2023 History of adenomato us polyp of colon (ICD-10 - Z86.010) 09/17/2023 Preprocedural examination (ICD-10 - Z01.818) PLAN OF TREATMENT Future Test Test Name Order Date COLONOSCOPY 09/17/2023 Next Appt Details Follow Up: prn, Reason: Progress Notes * Examination Category Sub-Category Detail Notes General Examination GENERAL APPEARANCE: pleasant , well nourished, well developed, in no acute distress HEAD: EYES: sclera non-icteric EARS: NOSE: THROAT: NECK/THYROID: no cervical lymphade nopathy, neck supple HEART: S1, S2 normal CHEST: LUNGS: clear to auscultatio n bilaterally ABDOMEN: normal bowel sounds, no guarding or rigidity, no guarding or rigidity, no masses palpable, soft, nontender, nondistended NEUROLOGIC: alert and oriented SKIN: nonjaundiced, no spi rupa angiomata EXTREMITIES: no edema PERIPHERAL PULSES: BACK: BREASTS: MUSCULOSKELETAL: MALE GENITOURINARY: LYMPH NODES: RECTAL EXAM: FEMALE GENITOURINARY: ORAL CAVITY: mucosa moist
--- OUTSIDE RECORDS SUMMARY | 2024-04-17 19:52 | XMS_ITS ---
Author Organization [facility] Address [address] [place] [address] Care Team Providers Care Speeder Hand Name Role Phone Gregory Ayala Primary Care Provider Unavailab Sabino Chanel Unavailable [phone] REASON FOR VISIT colon screening PROBLEMS Problem Type ICD Code Onset Dates Problem Status W/U Status Risk SNOMED Code Notes Problem Diverticulosis of large intestine without perforation or abscess without bleeding (K57.30) Active confirmed Diverticul ar disease of colon (900194960) Encounters Encounter Location Date Provider Diagnosis [facility] [place] Out[place] [address], [place] [id number] 01/28/2024 Sabino Cormier Colon cancer scree adarsh Z12.11 ; Personal history of colonic polyps Z86.0100 ; Diverticulosis of large intestine without perforation or abscess without bleeding K57.30 and Other hemorrhoids K64.8 ASSESSMENTS Encounter Date Diagnosis Assessment Notes Treatment Notes Treatment Clinical Notes 01/28/2024 Colon cancer screening (ICD-10 - Z12.11) 01/28/2024 Personal history of colonic polyps (ICD-10 - Z86.0100) 01/28/2024 Diverticulosis of large intestine without perforation or abscess without bleeding (ICD-10 - K57.30) 01/28/2024 Other hemorrhoids (ICD-10 - K64.8) PLAN OF TREATMENT No Information
== END 2024-04-17 17:50 | disposition home or self-care (01) ==
PROVIDERS: PCP Physician Assistant; Visit Provider Internal Medicine
DX: R73.09 Other abnormal glucose (principal); J45.20 Mild intermittent asthma, uncomplicated; U07.1 COVID-19

== ENCOUNTER → 2024-04-17 16:39 | Outpatient (BNVA) | payer OTHER, SELFPAY | PROVIDERS: PCP Physician Assistant; Visit Provider Internal Medicine | DX: U07.1 COVID-19 (principal); J45.20 Mild intermittent asthma, uncomplicated; R73.09 Other abnormal glucose | CPT/HCPCS: 83036; 96127 ==

== ENCOUNTER 2024-04-25 07:16 | Outpatient (REF) | payer OTHER, SELFPAY ==
--- NOTE | ~2024-04-25 | XR_ITS ---
CLINICAL HISTORY: R05.8 - Other specified cough 2 view chest x-ray Comparison: None Findings: The lungs are clear. Normal size heart. No acute fracture. IMPRESSION: 1. No acute findings. This document has been electronically signed by: Lalo Jolly MD on 04/25/2024 07:47:11
== END 2024-04-25 07:17 | disposition home or self-care (01) ==
LOC: HO.XRAY 07:16
PROVIDERS: PCP Physician Assistant; Visit Provider Physician Assistant
DX: R05.8 Other specified cough (principal)
CPT/HCPCS: 71046

== ENCOUNTER → 2024-04-25 07:19 | Outpatient (BNV) | payer OTHER, SELFPAY | PROVIDERS: PCP Physician Assistant; Visit Provider Radiology Diagnostic Radiology | DX: R05.8 Other specified cough (principal) | CPT/HCPCS: 71046 ==

== ENCOUNTER → 2024-07-07 09:56 | Outpatient (BNVA) | payer OTHER, SELFPAY | PROVIDERS: PCP Physician Assistant; Visit Provider Physician Assistant | DX: Z13.89 Encounter for screening for other disorder (principal) | CPT/HCPCS: 10120; 99202 ==

== ENCOUNTER 2024-07-14 07:00 | Outpatient (REF) | payer OTHER, SELFPAY ==
--- OUTSIDE RECORDS SUMMARY | 2024-07-14 07:02 | XMS_ITS ---
Author Organization [facility] Address [address] [place] [address] Care Team Providers Care National Park Ranger Name Role Phone Gregory Ayala Primary Care Provider Unavailab Sabino Chanel Unavailable [phone] Allergies Allergen (clinical drug ingredient) Drug/Non Drug Allergy documented on EMR Reaction Allergy Type Onset Date Status loratadine Claritin Unknown Drug Allergy Active REASON FOR VISIT Patient presents today for a SCREENING COLON Medications Medication SIG (Take, Route, Fr equency, Duration) Notes Start Date End Date Status Lisinopril 20 MG Oral for 90 A ctive Problems Problem Type SNOMED Code ICD Code Onset Dates Problem Status W/U Status Risk Notes Problem History of adenomatous polyp of colon (044655560) History of adenomatous polyp of colon (Z86.010) Active confirmed Problem Preprocedural examination (766824778216524) Preprocedural examination (Z01.818) Active confirmed Vital Signs Blood pressure systolic 00 mm Hg 09/17/19 24 Blood pressure diastolic 00 mm Hg 024 Height 70 in 09/17/2023 Weight 188 lbs 09/17/2023 BMI 26.97 kg/m2 09/17/2023 Encounters Encounter Location Date Provider Diagnosis [facility] [address] [place] [address] 09/17/2023 Sabino Cormier Encounter for screen ing for malignant neoplasm of colon Z12.11 ; Gastroesophageal reflux disease, esophagitis presence not specified K21.9 ; History of adenomatous polyp of colon Z86.010 and Preprocedural examination Z01.818 Assessments Encounter Date Diagnosis (ICD Code) Assessment Notes Treatment Notes Treatment Clinical Notes Section Notes 09/17/2023 Encounter for screening for malignant neoplasm of colon (ICD-10 - Z12.11) Overall, Chencho appears quite well. I did recommend a followup colonoscopy for further screening given his personal history of a tubular adenoma removed over 5 years ago. We did review the rationale for that regard to colon cancer prevention. Full consent was obtained from him for this, including risks of bleeding and perforation. The procedure will be done with monitored anesthesia care. His reflux seems to be quite minimal and very stable at the present time. Based on the negative endoscopy in 2017 and his clinical history I advised him that I do not think a repeat upper endoscopy is required. I did advise him to watch his weight and to stay on a healthy diet. I did advise him to certainly let me know if he develops any worsening symptoms of reflux in the future. Chencho was comfortable with this plan. Thank you again for allowing me to participate in Chencho's care. I shall continue to keep you advised of his progress. 09/17/2023 Gastroesophageal reflux disease, esophagitis presence not specified (ICD-10 - K21.9) Overall, Chencho appears quite well. I did recommend a followup colonoscopy for further screening given his personal history of a tubular adenoma removed over 5 years ago. We did review the rationale for that regard to colon cancer prevention. Full consent was obtained from him for this, including risks of bleeding and perforation. The procedure will be done with monitored anesthesia care. His reflux seems to be quite minimal and very stable at the present time. Based on the negative endoscopy in 2016 and his clinical history I advised him that I do not think a repeat upper endoscopy is required. I did advise him to watch his weight and to stay on a healthy diet. I did advise him to certainly let me know if he develops any worsening symptoms of reflux in the future. Chencho was comfortable with this plan. Thank you again for allowing me to participate in Chencho's care. I shall continue to keep you advised of his progress. 09/17/2023 History of adenomatous polyp of colon (ICD-10 - Z86.010) Overall, Chencho appears quite well. I did recommend a followup colonoscopy for further screening given his personal history of a tubular adenoma removed over 5 years ago. We did review the rationale for that regard to colon cancer prevention. Full consent was obtained from him for this, including risks of bleeding and perforation. The procedure will be done with monitored anesthesia care. His reflux seems to be quite minimal and very stable at the present time. Based on the negative endoscopy in 2017 and his clinical history I advised him that I do not think a repeat upper endoscopy is required. I did advise him to watch his weight and to stay on a healthy diet. I did advise him to certainly let me know if he develops any worsening symptoms of reflux in the future. Chencho was comfortable with this plan. Thank you again for allowing me to participate in Chencho's care. I shall continue to keep you advised of his progress. 09/17/2023 Preprocedural examination (ICD-10 - Z01.818) Overall, Chencho appears quite well. I did recommend a followup colonoscopy for further screening given his personal history of a tubular adenoma removed over 5 years ago. We did review the rationale for that regard to colon cancer prevention. Full consent was obtained from him for this, including risks of bleeding and perforation. The procedure will be done with monitored anesthesia care. His reflux seems to be quite minimal and very stable at the present time. Based on the negative endoscopy in 2016 and his clinical history I advised him that I do not think a repeat upper endoscopy is required. I did advise him to watch his weight and to stay on a healthy diet. I did advise him to certainly let me know if he develops any worsening symptoms of reflux in the future. Chencho was comfortable with this plan. Thank you again for allowing me to participate in Chencho's care. I shall continue to keep you advised of his progress. Plan Of Treatment Future Test Test Name Order Date COLONOSCOPY 09/17/2023 Next Appt Details Follow Up: prn, Reason: Progress Notes * SABINO JONESDOB:1960 (62 yo M)Acc No.[id number]:09/17/2023 Progress Notes Patient:?KARENSABINO Provider:?Sabino Cormier MD :1960???Age:62 Y???Sex:Male Armen e:09/17/2023 Address:[address] [place] [address] [id number] Pcp:Gregory Ayala Subjective: * Chief Complaints: * ???Patient presents today fo r a SCREENING COLON * HPI: ???incontinence:? I saw Chencho in consultation today for evaluation of his personal history of a tubular adenoma of the colon, need for colorectal cancer screening, and history of reflux. ?I last saw Chencho in April of 2016, which time he underwent a screening colonoscopy and upper endoscopy. His endoscopy revealed only a minimal hiatal hernia and minimal changes of reflux, without any signs of esophagitis or Barth's esophagus. His screening colonoscopy revealed small polyps that were removed, one of which was a tubular adenoma. ?Chencho presently feels very well. He enjoys a good appetite, without any significant heartburn or dysphagia. He describes taking an occasional yrzd-fpf-kbdybqc antacid for reflux symptoms but not on a regular or frequent basis. He denies any dysphagia, anorexia, early satiety, nausea, or vomiting. His bowel movements have been regular and without any signs of bleeding. He denies any abdominal pain, jaundice, nor weight loss. He denies any known family history of colon cancer. * ROS:?General/Constitutional:?Change in appetite?denies.?Chills?denies.?Fatigue?denies.?Ophthalmologic:?Comments?all negative.?ENT:?Comments?all negative.?Respiratory:?hemoptysis?denies.?Cough?denies.?Cardiovascular:?Chest pain?denies.?Orthopnea?denies.?Gastrointestinal:?Comments?See HPI for details.?Genitourinary:?Hematuria?denies.?Dysuria?denies.?Musculoskeletal:?Painful joints?denies.?Weakness?denies.?Skin:?Itching?denies.?Rash?denies.?Neurologic:?Headache?denies.?Seizures?denies.?Psychiatric:?Comments?all negative.? * Medical History:? * Surgical History:?Marcia fritz ents and tendons in his left upper extremity in relation to a fall--Dr. Urias * Hospitalization/Major Diagno stic Procedure:?No Hospitalization History. * Family History:?Father: dece ased.?Mother: alive, diagnosed with Colon polyps.?Maternal Grand Mother: , In her 70's, diagnosed with Colon cancer.? * Social History:?Tobacco Use:?Tobacco Use/Smoking?Patient is a: former smoker , How long has it been since you last smoked?: 5-10 years.?Drugs/Alcohol:?Alcohol Screen?Points: 1, Interpretation: Negative.?Miscellaneous:?Marital status: Single. 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 ???Nonsmoker since 2007; no sig alcohol. * Medications:?TakingLisinopri l 20 MG Tablet Oral Taking Lisinopril 20 MG Tablet Oral DiscontinuedToprol XL 25 MG Tablet Extended Release 24 Hour 1 tablet Orally Once a dayMedication List reviewed and reconciled with the patientDiscontinued Toprol XL 25 MG Tablet Extended Release 24 Hour 1 tablet Orally Once a dayMedication List reviewed and reconciled with the patient * Allergies:?Claritinyes[Aller gies Verified] Objective: * Vitals:?Wt: 188 lbs, Ht: 70 in, BMI:26.97 Index, BP: 00/00 mm Hg. * Examination: ???General Examination: ?GENERAL APPEARANCE:?pleasant, well nourished, well developed, in no acute distress.?EYES:?sclera non-icteric.?ORAL CAVITY:?mucosa moist.?NECK/THYROID:?no cervical lymphadenopathy, neck supple.?SKIN:?nonjaundiced, no spider angiomata.?HEART:?S1, S2 normal.?LUNGS:?clear to auscultation bilaterally.?ABDOMEN:?normal bowel sounds, no guarding or rigidity, no guarding or rigidity, no masses palpable, soft, nontender, nondistended.?EXTREMITIES:?no edema.?NEUROLOGIC:?alert and oriented.? Assessment: * Assessment: 1.?Gastroesophageal reflux d isease, esophagitis presence not specified - K21.9 (Primary)?2.?Encounter for screening for malignant neoplasm of colon - Z12.11?3.?History of adenomatous polyp of colon - Z86.010?4.?Preprocedural examination - Z01.818? Overall, Chencho appears quite w ell. I did recommend a followup colonoscopy for further screening given his personal history of a tubular adenoma removed over 5 years ago. We did review the rationale for that regard to colon cancer prevention. Full consent was obtained from him for this, including risks of bleeding and perforation. The procedure will be done with monitored anesthesia care. His reflux seems to be quite minimal and very stable at the present time. Based on the negative endoscopy in 2017 and his clinical history I advised him that I do not think a repeat upper endoscopy is required. I did advise him to watch his weight and to stay on a healthy diet. I did advise him to certainly let me know if he develops any worsening symptoms of reflux in the future. Chencho was comfortable with this plan. Thank you again for allowing me to participate in Chencho's care. I shall continue to keep you advised of his progress. Plan: * Treatment: 2.?History of adenomatous polyp of colon?Procedure: COLONOSCOPY (Ordered for 09/17/2023)* with MAC * Procedure Codes:?3017F COLOR ECTAL CA SCREEN DOC [id number] TOBACCO NON-FDTRD7091 BP SCR NOT PRFRM REC REASON NOS * Preventive Medicine:? ??Counseling:?Care goal follow-up plan:?Above Normal BMI Follow-up?Giving encouragement to exercise,?BMI management provided?Yes.? * Follow Up:?prn * * Sign off status: Completed true * Provider:?Sabino Cormier MD Date:? 024 Generated for Jaime cancino/Trish/Camelia on:?07/14/2024 07:02 AM EDT History and Physical Notes * HPI (History of Present Illness) Category Sub-Category Detail Notes Category Not es incontinence I saw Chencho in consultation today for evaluation of his personal history of a tubular adenoma of the colon, need for colorectal cancer screening, and history of reflux. I last saw Chencho in April of 2016, which time he underwent a screening colonoscopy and upper endoscopy. His endoscopy revealed only a minimal hiatal hernia and minimal changes of reflux, without any signs of esophagitis or Barth's esophagus. His screening colonoscopy revealed small polyps that were removed, one of which was a tubular adenoma. Chencho presently feels very well. He enjoys a good appetite, without any significant heartburn or dysphagia. He describes taking an occasional cxyu-sey-uhmouun antacid for reflux symptoms but not on a regular or frequent basis. He denies any dysphagia, anorexia, early satiety, nausea, or vomiting. His bowel movements have been regular and without any signs of bleeding. He denies any abdominal pain, jaundice, nor weight loss. He denies any known family history of colon cancer. Examination Category Sub-Category Detail Notes Category Not es General Examination GENERAL APPEARANCE: pleasant , well [...]
--- OUTSIDE RECORDS SUMMARY | 2024-07-14 07:02 | XMS_ITS ---
Author Organization [facility] Address [address] [place] [address] Care Team Providers Care Flatware Maker Name Role Phone Gregory Ayala Primary Care Provider Unavailab Sabino Chanel Unavailable [phone] REASON FOR VISIT colon screening Problems Problem Type SNOMED Code ICD Code Onset Dates Problem Status W/U Status Risk Notes Problem Diverticular disease of colon (584972609) Diverticulosis of large intestine without perforation or abscess without bleeding (K57.30) Active confirmed Encounters Encounter Location Date Provider Diagnosis [facility] [place] [address] [place] [phone] 01/28/2024 Sabino Cormier Colon cancer scree adarsh [...] No Information Progress Notes * SABINO JONESDOB:1960 (63 yo M)Acc No.[id number]:01/28/2024 COLON WITH MAC Patient:?SABINO JONES Provider:?Sabino Cormier MD :1960???Age:63 Y???Sex:Male Armen e:01/28/2024 Address[address] [id number] Pcp:Gregory Ayala Subjective: * Chief Complaints: * ???1. Colon screening. * Medical History:? Objective: * Vitals:? Assessment: * Assessment: 1.?Colon cancer screening - Z12.11 (Primary)???2.?Personal history of colonic polyps - Z86.0100???3.?Diverticulosis of large intestine without perforation or abscess without bleeding - K57.30???4.?Other hemorrhoids - K64.8??? Plan: * Treatment: * Procedure Codes:?14358 DIAGN OSTIC COLONOSCOPY, Modifiers: 33 * * The named appointment provid er may or may not be the originator of this progress note, and it is not deemed complete until electronically signed by the appointment provider. Sign off status: Pending * Provider:?Sabino Cormier MD Date:? 024 Generated for Jaime cancino/Trish/eTransmitting on:?07/14/2024 07:02 AM EDT
[2024-07-14 07:58] LABS: Hematocrit 46.5 % (42.0-52.0); Hemoglobin 15.6 g/dl (14.0-18.0); Mean Corpuscular HGB Conc 33.5 g/dl (31.0-36.0); Mean Corpuscular Hemoglobin 29.4 pg (27.0-33.0); Mean Corpuscular Volume 87.7 fL (80.0-98.0); Mean Platelet Volume 9.5 fL (9.4-12.4); Platelet Count 273 X10*3/uL (160-400); Red Cell Distribution Width 12.7 % (11.0-16.0); White Blood Count 6.7 X10*3/uL (4.8-10.8)
[2024-07-14 08:01] LABS: Estimated Average Glucose 126 mg/dL; Hemoglobin A1C 176.0894 umol/L; Total Hemoglobin (HGBA1C) 4164.9926 umol/L
[2024-07-14 08:27] LABS: Alanine Aminotransferase 30 U/L (0-40); Albumin Level 4.2 g/dL (3.5-5.0); Alkaline Phosphatase 57 U/L (39-117); Anion Gap 8 (12-20); Aspartate Amino Transferase 24 U/L (5-37); Blood Urea Nitrogen 20 mg/dL (9-16); Calcium 9.1 mg/dL (8.4-10.2); Carbon Dioxide 29 mmol/L (22-29); Chloride 109 mmol/L (96-108); Cholesterol 193 mg/dL (<200); Estimated Glomerular Filt Rate > 60; Glucose Fasting 121 mg/dL (60-99); HDL Cholesterol 53 mg/dL (>40); LDL Cholesterol Calculated 126 mg/dL (<100); Potassium 4.1 mmol/L (3.3-5.1); Sodium 142 mmol/L (135-145); Total Protein 6.7 g/dL (6.5-8.0); Triglycerides 73 mg/dL (<150)
[2024-07-14 08:44] LABS: Prostate Specific Antigen Scr 1.18 ng/mL (<0.05-4.0)
[2024-07-14 09:29] LABS: Microalbumin Urine < 5.0 mg/L
== END 2024-07-14 07:01 | disposition home or self-care (01) ==
LOC: HO.LAB 07:00
PROVIDERS: PCP Physician Assistant; Visit Provider Physician Assistant
DX: Z12.5 Encounter for screening for malignant neoplasm of prostate (principal); I10 Essential (primary) hypertension; R73.09 Other abnormal glucose; E78.00 Pure hypercholesterolemia, unspecified
CPT/HCPCS: 36415; 80053; 80061; 82043; 82570; 83036; 84153; 85027

== ENCOUNTER 2024-07-17 07:55 | Outpatient (AMB) | payer OTHER, SELFPAY ==
--- OUTSIDE RECORDS SUMMARY | 2024-07-17 07:58 | XMS_ITS ---
Author Organization [facility] Address [address] [place] [address] Care Team Providers Care Vocational Examiner Name Role Phone Gregory Ayala Primary Care Provider Unavailab Sabino Chanel Unavailable [phone] REASON FOR VISIT colon screening Problems Problem Type SNOMED Code ICD Code Onset Dates Problem Status W/U Status Risk Notes Problem Diverticular disease of colon (264595141) Diverticulosis of large intestine without perforation or abscess without bleeding (K57.30) Active confirmed Encounters Encounter Location Date Provider Diagnosis [facility] [place] Out[place] [address] [place] [phone] 01/28/2024 Sabino Cormier Colon cancer scree adarsh [...] Notes * SABINO JONESDOB:1960 (63 yo M)Acc No.[id number]:01/28/2024 COLON WITH MAC Patient:?SABINO JONES Provider:?Sabino Cormier MD :1960???Age:63 Y???Sex:Male Armen e:01/28/2024 Address:[address] [id number] Pcp:Gregory Ayala Subjective: * Chief Complaints: * ???1. Colon screening. * Medical History:? Objective: * Vitals:? Assessment: * Assessment: 1.?Colon cancer screening - Z12.11 (Primary)???2.?Personal history of colonic polyps - Z86.0100???3.?Diverticulosis of large intestine without perforation or abscess without bleeding - K57.30???4.?Other hemorrhoids - K64.8??? Plan: * Treatment: * Procedure Codes:?19919 DIAGN OSTIC COLONOSCOPY, Modifiers: 33 * * The named appointment provid er may or may not be the originator of this progress note, and it is not deemed complete until electronically signed by the appointment provider. Sign off status: Pending * Provider:?Sabino Cormier MD Date:? 024 Generated for Jaime cancino/Trish/eTransmitting on:?07/17/2024 07:58 AM EDT
--- OUTSIDE RECORDS SUMMARY | 2024-07-17 07:58 | XMS_ITS ---
Author Organization [facility] Address [address] [place] [address] Care Team Providers Care Skiff Operator Name Role Phone Gregory Ayala Primary Care Provider Unavailab Sabino Chanel Unavailable [phone] Allergies Allergen (clinical drug ingredient) Drug/Non Drug [...] Problem History of adenomatous polyp of colon (605335793) History of adenomatous polyp of colon (Z86.010) Active confirmed Problem Preprocedural examination (328805423427376) Preprocedural examination (Z01.818) Active confirmed Vital Signs Blood pressure systolic 00 mm Hg 09/17/19 24 Blood pressure diastolic 00 mm Hg 024 Height 70 in 09/17/2023 Weight 188 lbs 09/17/2023 BMI 26.97 kg/m2 09/17/2023 Encounters Encounter Location Date Provider Diagnosis [facility] [address] [place] [address] 09/17/2023 Sabino Cormier Encounter for screen ing [...] Notes * SABINO JONESDOB:1960 (62 yo M)Acc No.[id number]:09/17/2023 Progress Notes Patient:?KARENSABINO Provider:?Sabino Cormier MD :1960???Age:62 Y???Sex:Male Armen e:09/17/2023 Address:[address] [place] [address] [id number] Pcp:Gregory Ayala Subjective: * Chief Complaints: * [...] or dysphagia. He describes taking an occasional vulo-any-xshqmop antacid for reflux symptoms but not on [...] Negative.?Miscellaneous:?Marital status: Single. 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 ???Nonsmoker since 2007; no sig alcohol. * [...] Procedure Codes:?3017F COLOR ECTAL CA SCREEN DOC [id number] TOBACCO NON-TOAKN5733 BP SCR NOT PRFRM REC REASON NOS * Preventive Medicine:? ??Counseling:?Care goal follow-up plan:?Above Normal BMI Follow-up?Giving encouragement to exercise,?BMI management provided?Yes.? * Follow Up:?prn * * Sign off status: Completed true * Provider:?Sabino Cormier MD Date:? 024 Generated for Jaime cancino/Trish/Camelia on:?07/17/2024 07:58 AM EDT History and Physical Notes * [...] or dysphagia. He describes taking an occasional ozfv-rwk-pftlrmj antacid for reflux symptoms but not on [...]
--- OUTSIDE RECORDS SUMMARY | 2024-07-17 07:58 | XMS_ITS | Patient Health Record ---
Author Organization [facility] Address [address] [place] [address] Care Team Providers Care Slabber Name Role Phone Gregory Ayala Primary Care Provider Unavailab Sabino Chanel Unavailable [phone] Allergies Allergen (clinical drug ingredient) Drug/Non Drug Allergy documented on EMR Reaction Allergy Type Onset Date Status loratadine Claritin Unknown Drug Allergy Active Reason For Referral No Information Medications Medication SIG (Take, Route, Fr equency, Duration) Notes Start Date End Date Status Lisinopril 20 MG Oral for 90 A ctive Problems Problem Type SNOMED Code ICD Code Onset Dates Problem Status W/U Status Risk Notes Problem 239355405 Encounter for screening for malignant neoplasm of colon (Z12.11) Active confirmed Problem History of adenomatous polyp of colon (128258534) History of adenomatous polyp of colon (Z86.010) Active confirmed Problem Diverticular disease of colon (723347423) Diverticulosis of large intestine without perforation or abscess without bleeding (K57.30) Active confirmed Problem Screening for malignant neoplasm of rectum (702228560) Encounter for screening for malignant neoplasm of rectum (Z12.12) Active confirmed Problem Preprocedural examination (758258000582988 ) Preprocedural examination (Z01.818) Active confirmed Problem 906230886 Gastroesophageal reflux disease, esophagitis presence not specified (K21.9) Active confirmed Vital Signs Blood pressure diastolic 00 mm Hg 09/17/2023 Height 70 in 09/17/2023 Blood pressure systolic 00 mm Hg 09/17/2023 Weight 188 lbs 09/17/2023 BMI 26.97 kg/m2 09/17/2023 Encounters Encounter Location Date Provider Diagnosis [facility] [place] Out[facility] [address] [place] [address] [place] [phone] 01/28/2024 Sabino Cormier Colon cancer screeni ng Z12.11 ; Personal history of colonic polyps Z86.0100 ; Diverticulosis of large intestine without perforation or abscess without bleeding K57.30 and Other hemorrhoids K64.8 [facility] [address] [place] [address] 09/17/2023 Sabino Cormier Encounter for screen ing [...] polyps (ICD-10 - Z86.0100) 09/17/2023 Encounter for screening for malignant neoplasm [...] to keep you advised of his progress. 01/28/2024 Diverticulosis of large intestine without perforation or abscess without bleeding (ICD-10 - K57.30) 09/17/2023 History of adenomatous polyp of colon [...] to keep you advised of his progress. 01/28/2024 Other hemorrhoids (ICD-10 - K64.8) 09/17/2023 Preprocedural examination (ICD-10 - Z01.818) Overall, [...] Treatment Future Test Test Name Order Date UPPER GI ENDOSCOPY 12/20/2015 COLONOSCOPY 12/20/2015 COLONOSCOPY 09/17/2023 Insurance Providers Payer Name Payer Address Payer Phone Subscriber Number Group Number Insured Name Patient Relationship to Insured Coverage Start Date Coverage End Date [employer] [place] [address] [address] [place] [address] [id number] SABINO JONES Self - patient is the insured Medical (General) History Medical History History ICD Code PVC's--Holter monitor--the [facility]las [facility] reports that he has had numerous PVC's documented on his Holter monitor--he is followed by Dr. Jimenez--neg. cardiac catheterization in 07/2015--on Toprol Denies [place],DM,CVA,Lung disease,renal dise ase GERD-EGD in 04/2016 with a mi nimal hiatal hernia and minimal changes of reflux. Biopsies were negative for Barth's esophagus. Screening colonoscopy with removal of a tubular adenoma in 04/2016 HTN Surgical History Surgery Date(Month/Year) Torn ligaments and tendons i n his left upper extremity in relation to a fall--Dr. Urias
--- NOTE | 2024-07-17 08:10 | A.OFFPC_ITS ---
Vital Signs 07/17/24 08:11 Height 5 ft 10 in Weight 195 lb BMI 28.0 BP 130/70 Blood Pressure Location Lt brachial Position Sitting Pulse 70 Pulse Source Pulse Oximeter Temp 97.4 F Temp Source Temporal Artery Scan Pulse Oximetry (%) 94 Oxygen Delivery Method Room Air Intake Visit Reasons: Annual Exam Intake Note: Patient is here today for a physical. Recycle Driver Required: No Greenhouse Transplanter: Not Required per policy Accompanied by: Self / Same As Patient Allergies loratadine [From CLARITIN] Allergy (Unknown, Verified 07/17/24 08:17) TACHYCARDIA Medication List - Last Reconciled 07/17/24 by Gregory Ayala PA-C ibuprofen 800 mg PO Q8H PRN 7 days lisinopril 20 mg PO DAILY 90 days Tobacco use date assessed: 07/17/24 Dental Screening Dental Screen Date: 07/17/24 Did you have a dental visit in the last 12 months?: Yes Did you have a dental problem in the last 6 months where you did not have access to dental care?: No Was dental information given to patient?: Patient has dentist HPI Annual Exam HPI Details Joshua is a 63 y/o M here today for a annual physical ? Pmhx significant for HTN, HLD, impaired glucose metabolism Concern--> Also he does mentioned having some right shoulder pain when abducting his upper extremity over the last few years. He has difficulty raising his right upper extremity above his head in doing internal and ab duction with his right upper extremity. He can not recall any acute injury to his right shoulder though is considering seeing orthopedics for evaluation perhaps MRI to evaluate his rotator cuff. ? .. ? HTN:? Blood pressure reports systolic 115- 120 systolic.? Blood pressure today in office acceptable..? No report of headaches, CP, SOB. .. Borderline high cholesterol: His most recent lipid panel continues to show borderline high total cholesterol. He does understand he needs to work on dietary modifications. Will work on lifestyle modifications to reduce his high cholesterol. .. ?impaired glucose metabolism:? Most recent fasting blood sugar still slightly elevated in A1c in prediabetic range. Did discuss perhaps trying metformin to help reduce his sugars though he would like to work on dietary modifications. Vaccine:? Needs up-to-date PCV, and tetanus, UTD with COVID vacc. UTD with shingles vaccine. ? colonoscopy : Colonoscopy done in 2023, Sees Dr Cormier, repeat 5 years Laboratory Tests 07/06/23 01/11/24 07/14/24 07:20 07:24 07:05 RBC Creatinine Fasting Glucose 124 H Hemoglobin A1c % 5.9 LDL Cholesterol, C alc 120 H Cholesterol PSA Screen Urine Microalbumin < 5.0 07/14/24 07:10 RBC 5.30 Creatinine 0.88 Fasting Glucose 121 H Hemoglobin A1c % 6.0 LDL Cholesterol, C alc 126 H Cholesterol 193 PSA Screen 1.18 Urine Microalbumin PFSH Medical History PVC (premature ventricular contraction) HLD (hyperlipidemia) HTN (hypertension) Asthma SI (sacroiliac) joint dysfunction Surgical History History of esophagogastroduodenoscopy (EGD) H/O colonoscopy Hx of cardiac catheterization Ruptured tendon Family History Father COPD (chronic obstructive pulmonary disease) Mother No problems noted. Maternal Grandmother Colon cancer Sister In good health DMII (diabetes mellitus, type 2) Daughter In good health Brother Mental health disorder Substance use disorder Social History (Updated 07/17/24 @ 08:22 by Gregory Ayala PA-C) Housing: House Are you a primary career services officer to a significant other at home: No Do you presently have visiting nurse or other home services: No Alcohol intake: current Alcohol intake frequency: a few times a month Alcohol type: beer and wine Patient Tobacco Use Status: Former Tobacco user Tobacco use type: Cigarette e-Cigarette/Vaping Use: Never Used Second Hand Smoke Exposure: Yes service: No Current occupational status: employed Current occupation: [employer] Current occupational exposures/hazards: No Cognitive needs: No Hearing needs: No Vision needs: Yes (glasses) Questionnaire PHQ-9 Over the last 2 weeks, how often have you been bothered by any of the following problems? 1. Little interest or pleasure in doing things: not at all 2. Feeling down, depressed, or hopeless: not at all 3. Trouble falling or staying asleep, or sleeping too much: not at all 4. Feeling tired or having little energy: not at all 5. Poor appetite or overeating: not at all 6. Feeling bad about yourself - or that you are a failure or have let yourself or your family down: not at all 7. Trouble concentrating on things, such as reading the newspaper or watching television: not at all 8. Moving or speaking so slowly that other people could have noticed. Or the opposite - being so fidgety or restless that you have been moving around a lot more than usual: not at all 9. Thoughts that you would be better off or of hurting yourself in some way: not at all Total score: 0 Depression Screening Interpretation: Negative Depression Screening Done: Yes 74046 - PHQ-9 Billing: Yes Source: Developed by Drs. Joshua Sumner, Amber Aguila, Darío Reeves and colleagues, with an educational debra from [employer]. Thrive Questionnaire Date Thrive assessed: 04/17/24 I am a: Patient What is your living situation today?: I have a steady place to live Within the past 12 months, did the food you bought not last and you didn't have the money to get more?: Never true Within the past 12 months, did you worry whether your food would run out before you got money to buy more?: Never true Do you have trouble paying for medicines?: No Do you have trouble getting transportation to medical appointments?: No Do you have trouble paying your heating and electricity bill?: No Do you have trouble taking care of your child, family member or friend?: No Do you have trouble with day-to-day activities such as bathing, preparing meals, shopping, managing finances, etc.?: No Are you currently unemployed and looking for a job?: No Are you interested in more education?: No Please select the resources that you would like help with: None Currently or been in a relationship where the following occur: No concerns reported THRIVE Score: 0 AUDIT C Alcohol Use Questionnaire (AUDIT-C) 1. How often do you have a drink containing alcohol?: 2-4 times a month Total Score: 2 ARCELIA-7 AMB Questionnaire ARCELIA-7 Date ARCELIA - 7 assessed: 04/17/24 Feeling nervous, anxious, or on edge: 0 = Not at all Not being able to stop or control worryin = Not at all Worrying too much about different things: 0 = Not at all Trouble relaxin = Not at all Being so restless that it is hard to sit still: 0 = Not at all Becoming easily annoyed or irritable: 0 = Not at all Feeling afraid as if something awful might happen: 0 = Not at all Total ARCELIA-7 score (0-4 normal; 5-9 mild; 10-14 moderate; 15-21 severe): 0 Source: Developed by Drs. Joshua Sumner, Amber Aguila, Darío Reeves and colleagues, with an educational debra from [employer]. ARCELIA-7 Assessment Billing ARCELIA-7 Assessment Tool: ARCELIA-7 Assessment 09076 Review of Systems Const Denies body aches, Denies chills, Denies excessive sweating, Denies fatigue, Denies fever(s) and Denies headache(s) Eyes Denies blurry vision ENT Denies dysphagia, Denies vertigo, Denies dizziness, Denies headache(s), Denies hearing loss and Denies tinnitus Card Denies chest pain, Denies chest pain with activity, Denies syncope, Denies irregular heart rhythm and Denies dyspnea Resp Denies chest congestion, Denies cough, Denies hemoptysis, Denies dyspnea and D enies wheezing GI Denies abdominal pain, Denies melena, Denies hematochezia, Denies coffee ground emesis, Denies dysphagia, Denies diarrhea, Denies nausea and Denies vomiting Denies difficulty urinating, Denies dysuria, Denies urinary frequency, Denies urinary hesitancy and Denies urinary urgency Musc Denies arthralgias, Denies limited range of motion, Denies muscle cramps and Denies muscle weakness Skin/Breast Denies rash and Denies skin ulcer Neuro Denies Abnormal speech present, Denies confusion, Denies vertigo, Denies dizziness, Denies syncope, Denies headache(s), Denies memory loss and Denies seizure-like activity Psych Denies anxiety, Denies confusion, Denies depression, Denies memory loss, Denies panic attacks and Denies paranoia Endo Denies excessive sweating, Denies fatigue, Denies flushing, Denies polydipsia and Denies polyuria Aller/Immun Denies wheezing Physical exam (Primary Care) Vital Signs: Last Vital Signs Temp 97.4 F 07/17/24 08:11 Pulse 70 07/17/24 08:11 BP 130/70 07/17/24 08:11 Pulse Ox 94 07/17/24 08:11 Oxygen Delivery Method Room Air 07/17/24 08:11 BMI result Body Mass Index 28.0 Tobacco/Smoking Status: Tobacco use Status Tobacco use date assessed 07/17/24 07/17/24 08:15 Patient Tobacco Use Status Former Tobacco user 07/17/24 08:22 Tobacco use type Cigarette 07/17/24 08:22 e-Cigarette/Vaping Use Never Used 07/17/24 08:22 PHQ-9: PHQ-9 Score PHQ-9: Total score 0 07/17/24 08:46 Depression Screening Interpretation: Negative Thrive Assessment: Date of Thrive Assessment Date Thrive assessed 04/17/24 07/17/24 08:15 Currently or been in a relationship where the following occur: No concerns reported Const General: cooperative, comfortable, no acute distress, alert and awake; No confusion Orientation/consciousness: oriented to person, oriented to place, patient oriented x3 and No confusion HENMT Head: Yes normocephalic Ears: external ears normal and TM's normal bilaterally Face and sinus: No sinus tenderness Mouth: Normal oral and palatal mucosa present and tongue normal Teeth and gingiva: dentition normal and gingiva normal Throat: Yes posterior oropharynx normal, Yes tonsils normal and Yes uvula midline Eyes Conjunctivae: conjunctivae normal Sclerae: sclerae normal Pupils: Equal, round and reactive pupils present EOM: EOMs intact bilaterally Direct Ophthalmoscopy: No no photophobia Neck Neck: Yes no lymphadenopathy, No tender and Yes no JVD Thyroid: Thyroid normal Carotids: no bruits Chest Chest palpation & inspection: no tenderness Resp Effort & Inspection: normal respiratory effort, no audible wheezes, not labored and no stridor Auscultation: no crackles, no rales, no rhonchi and no wheezes Cardio Jugular venous distension: no JVD Rate: regular rate, not bradycardic and not tachycardic Rhythm: regular rhythm Bruits: no carotid bruits Peripheral pulses: Peripheral pulses 2+ throughout GI Inspection: Yes normal to inspection, No abdominal wall ecchymosis and No visible herniation Palpation (GI): Soft to palpation, nontender, no guarding, not rigid and No hepatosplenomegaly present Auscultation: normoactive bowel sounds General: Yes no CVA tenderness Back/Spine/Pelvis Back: no CVA tenderness and No back tenderness Cervical Spine: cervical ROM normal Thoracic/Lumbar Spine: thoracic and lumbar spine normal to inspection, straight leg raise negative bilaterally, No thoraco-lumbar ROM limited and No lumbar spinal tenderness Skin Lesions: no lesions Rashes: no rashes Wounds: no wounds Neuro General: oriented to person, oriented to place, patient oriented x3, CN's II-XI intact bilaterally and No confusion Cranial nerves: Yes Equal, round and reactive pupils present and Yes Normal accommodation reflex present Cognition (Neuro): normal cognition Speech: No Abnormal speech present Gait exam (Neuro): Normal gait present Motor exam (neuro): 5/5 motor strength present throughout Extrem Other: RIGHT UPPER EXTREMITY: LIMITED RANGE OF MOTION DUE TO PAIN AND STIFFNESS, DIFFICULTY WITH INTERNAL ROTATION IN ADDUCTION Right upper extremity: ROM limited and no cyanosis Left upper extremity: full ROM; no cyanosis Right lower extremity: no edema Left lower extremity: no edema Psych Appearance: grossly normal Mental Status: mental status grossly normal Affect: normal affect Attitude: cooperative Thought process: Normal thought process present Immunizations pneumoc 20-ale conj-dip cr(PF) 0.5 mL IM syringe Performing Provider: Gregory Ayala PA-C [facility] Administered by: ISHAAN Elizabeth on 07/17/24 08:46 Dose Route Admin Location Dispensed Lot Number Expiration Date [facility] Licensed Vocational Nurse 0.5 mL IM Left Deltoid 0.5 mL [id number] 05/06/25 [employer] VIS Given Date VIS Provided VIS Publication Date 07/17/24 Single Vaccine 22 Eligibility Eligibility Date Funding Source Not [facility] Eligible 07/17/24 Private Coding Level of Care Code Est Pt Prev Care 40-64y(91153) Diagnoses Annual physical exam Z00.00 Incomplete rotator cuff tear or rupture of right shoulder, not specified as traumatic M75.111 Pure hypercholesterolemia E78.00 Hyperlipidemia type: pure hypercholesterolemia Essential hypertension I10 Hypertension type: essential hypertension Impaired glucose metabolism R73.09 Additional Codes PHQ-9 - 70523 - PHQ-9 Billing: Yes ([id number]) ARCELIA-7 Assessment Billing - ARCELIA-7 Assessment Tool: ARCELIA-7 Assessment 00359 ([id number]) Assessment & Plan Assessment & Plan (1) Annual physical exam: Code(s): Z00.00 - Encounter for general adult medical examination without abnormal findings Category: Medical Plan: As per HPI (2) Incomplete rotator cuff tear or rupture of right shoulder, not specified as traumatic: Code(s): M75.111 - Incomplete rotator cuff tear or rupture of right shoulder, not specified as traumatic Category: Medical Plan: As per HPI patient continues with decreased range of motion and pain in her right shoulder over the last several years, has used ibuprofen and light stretches though has not gotten better. No notable injury. Will try for MRI of the right shoulder to evaluate for partial rotator cuff tear (3) HLD (hyperlipidemia): Code(s): E78.5 - Hyperlipidemia, unspecified Category: Medical Qualifiers: Hyperlipidemia type: pure hypercholesterolemia Qualified Code(s): E78.00 - Pure hypercholesterolemia, unspecified Plan: Patient's most recent lipid panel showing borderline cholesterol, he will work on lifestyle and dietary modifications to continue to reduce his cholesterol. LDL is to remain below 130. (4) HTN (hypertension): Code(s): I10 - Essential (primary) hypertension Category: Medical Qualifiers: Hypertension type: essential hypertension Qualified Code(s): I10 - Essential (primary) hypertension Plan: Patient's blood pressure acceptable today in office. Will continue on current dose of lisinopril with goal blood pressure to remain below 140/90. (5) Impaired glucose metabolism: Code(s): R73.09 - Other abnormal glucose Category: Medical Plan: Most recent fasting blood sugar slightly high at 121 and A1c is 6.0. Will continue working on lifestyle and dietary modifications. Orders: Orders Comprehensive [place]. Panel Fast Today I10 - Essential (primary) hypertension Pneumococcal 20 Immunization Today I10 - Essential (primary) hypertension, Z23 - Encounter for immunization MR shoulder RT wo con Today M75.111 - Incomplete rotator cuff tear or rupture of right shoulder, not specified as traumatic Hemoglobin A1c Today R73.09 - Other abnormal glucose Complete Blood Count no Diff Today J45.20 - Mild intermittent asthma, uncomplicated Lipid Panel Today E78.00 - Pure hypercholesterolemia, unspecified Patient Instructions: Goal: A1c to remain below 6.5, LDL to be below 130, blood pressure to be below 140/90 Barriers: Adherence to physical activity and healthy eating habits
[2024-07-17 08:11] VITALS: BP 130/70; PULSE 70; TEMP 36.3; O2SAT 94; BMI 28.0
== END 2024-07-17 10:06 | disposition home or self-care (01) ==
LOC: HO.HMCH 07:56
PROVIDERS: PCP Physician Assistant; Visit Provider Physician Assistant
DX: Z00.00 Encounter for general adult medical examination without abnormal findings (principal); M75.111 Incomplete rotator cuff tear or rupture of right shoulder, not specified as traumatic; E78.00 Pure hypercholesterolemia, unspecified; I10 Essential (primary) hypertension; R73.09 Other abnormal glucose; Z23 Encounter for immunization

== ENCOUNTER → 2024-07-17 07:55 | Outpatient (BNVA) | payer OTHER, SELFPAY | PROVIDERS: PCP Physician Assistant; Visit Provider Physician Assistant | DX: Z00.00 Encounter for general adult medical examination without abnormal findings (principal); Z23 Encounter for immunization; M75.111 Incomplete rotator cuff tear or rupture of right shoulder, not specified as traumatic; E78.00 Pure hypercholesterolemia, unspecified; I10 Essential (primary) hypertension; R73.09 Other abnormal glucose | CPT/HCPCS: 90471; 90677; 96127 ==

== ENCOUNTER → 2024-07-27 07:48 | Outpatient (BNV) | payer OTHER, SELFPAY | PROVIDERS: PCP Physician Assistant; Visit Provider Radiology Diagnostic Radiology | DX: M75.121 Complete rotator cuff tear or rupture of right shoulder, not specified as traumatic (principal); M75.21 Bicipital tendinitis, right shoulder; M19.011 Primary osteoarthritis, right shoulder | CPT/HCPCS: 73221 ==

== ENCOUNTER 2024-07-27 07:49 | Outpatient (REF) | payer OTHER, SELFPAY ==
--- OUTSIDE RECORDS SUMMARY | 2024-07-27 07:57 | XMS_ITS ---
Author Organization [facility] Address [address] [place] [address] Care Team Providers Care Dog License Officer Supervisor Name Role Phone Gregory Ayala Primary Care Provider Unavailab Sabino Chanel Unavailable [phone] REASON FOR VISIT colon screening Problems Problem Type SNOMED Code ICD Code Onset Dates Problem Status W/U Status Risk Notes Problem Diverticular disease of colon (350988252) Diverticulosis of large intestine without perforation or abscess without bleeding (K57.30) Active confirmed Encounters Encounter Location Date Provider [place] [facility] [place] [address] [place] [phone] 01/28/2024 Sabino Cormier Colon cancer scree adarsh [...] Notes * SABINO JONESDOB:1960 (63 yo M)Acc No.[id number]:01/28/2024 COLON WITH MAC Patient:?SABINO JONES Provider:?Sabino Cormier MD :1960???Age:63 Y???Sex:Male Armen e:01/28/2024 Address:[id number] Pcp:Gregory Ayala Subjective: * Chief Complaints: * ???1. Colon screening. * Medical History:? Objective: * Vitals:? Assessment: * Assessment: 1.?Colon cancer screening - Z12.11 (Primary)???2.?Personal history of colonic polyps - Z86.0100???3.?Diverticulosis of large intestine without perforation or abscess without bleeding - K57.30???4.?Other hemorrhoids - K64.8??? Plan: * Treatment: * Procedure Codes:?35003 DIAGN OSTIC COLONOSCOPY, Modifiers: 33 * * The named appointment provid er may or may not be the originator of this progress note, and it is not deemed complete until electronically signed by the appointment provider. Sign off status: Pending * Provider:?Sabino Cormier MD Date:? 024 Generated for Jaime cancino/Trish/eTransmitting on:?07/27/2024 07:57 AM EDT
--- OUTSIDE RECORDS SUMMARY | 2024-07-27 07:57 | XMS_ITS | Patient Health Record ---
Author Organization [facility] Address [address] [place] [address] Care Team Providers Care Lens Generating Machine Tender Name Role Phone Gregory Ayala Primary Care Provider Unavailab Sabino Chanel Unavailable [phone] Allergies Allergen (clinical drug ingredient) Drug/Non Drug [...] Problem Status W/U Status Risk Notes Problem 310463892 Encounter for screening for malignant neoplasm of colon (Z12.11) Active confirmed Problem History of adenomatous polyp of colon (943588752) History of adenomatous polyp of colon (Z86.010) Active confirmed Problem Diverticular disease of colon (515892298) Diverticulosis of large intestine without perforation or abscess without bleeding (K57.30) Active confirmed Problem Screening for malignant neoplasm of rectum (945076056) Encounter for screening for malignant neoplasm of rectum (Z12.12) Active confirmed Problem Preprocedural examination (856834554196710 ) Preprocedural examination (Z01.818) Active confirmed Problem 866627976 Gastroesophageal reflux disease, esophagitis presence not specified (K21.9) Active confirmed Vital Signs Blood pressure diastolic 00 mm Hg 09/17/2023 Height 70 in 09/17/2023 Blood pressure systolic 00 mm Hg 09/17/2023 Weight 188 lbs 09/17/2023 BMI 26.97 kg/m2 09/17/2023 Encounters Encounter Location Date Provider Diagnosis [facility] [place] Out[facility] [address] [place] [address] [place] [phone] 01/28/2024 Sabino Cormier Colon cancer screeni ng Z12.11 ; Personal history of colonic polyps Z86.0100 ; Diverticulosis of large intestine without perforation or abscess without bleeding K57.30 and Other hemorrhoids K64.8 [facility] [address] [place] [address] 09/17/2023 Sabino Cormier Encounter for screen ing [...] polyp of colon (ICD-10 - Z86.010) Overall, Chencoh appears quite well. I did recommend a [...] Coverage End Date [employer] [place] [address] [address] [place] [address] [id number] SABINO JONES Self - patient is the insured Medical (General) History Medical History History ICD Code PVC's--Holter monitor--the [facility] reports that he has had numerous PVC's documented on his Holter monitor--he is followed by Dr. Jimenez--neg. cardiac catheterization in 07/2015--on Toprol Denies [place],DM,CVA,Lung disease,renal dise ase GERD-EGD in 04/2016 with a mi nimal hiatal hernia and minimal changes of reflux. Biopsies were negative for Barth's esophagus. Screening colonoscopy with removal of a tubular adenoma in 04/2016 HTN Surgical History Surgery Date(Month/Year) Torn ligaments and tendons i n his left upper extremity in relation to a fall--Dr. Urias
--- OUTSIDE RECORDS SUMMARY | 2024-07-27 07:57 | XMS_ITS ---
Author Organization [facility] Address [address] [place] [address] Care Team Providers Care Flotation Tender Helper Name Role Phone Gregory Ayala Primary Care Provider Unavailab Sabino Chanel Unavailable [phone] Allergies Allergen (clinical drug ingredient) Drug/Non Drug [...] Problem History of adenomatous polyp of colon (572553918) History of adenomatous polyp of colon (Z86.010) Active confirmed Problem Preprocedural examination (976908776872007) Preprocedural examination (Z01.818) Active confirmed Vital Signs Blood pressure systolic 00 mm Hg 09/17/19 24 Blood pressure diastolic 00 mm Hg 024 Height 70 in 09/17/2023 Weight 188 lbs 09/17/2023 BMI 26.97 kg/m2 09/17/2023 Encounters Encounter Location Date Provider Diagnosis [facility] [address] [place] [address] 09/17/2023 Sabino Cormier Encounter for screen ing [...] Notes * SABINO JONESDOB:1960 (62 yo M)Acc No.[id number]:09/17/2023 Progress Notes Patient:?KARENSABINO Provider:?Sabino Cormier MD :1960???Age:62 Y???Sex:Male Armen e:09/17/2023 Address:[address] [place] [address] [id number] Pcp:Gregory Ayala Subjective: * Chief Complaints: * [...] or dysphagia. He describes taking an occasional icio-kzc-bulauzi antacid for reflux symptoms but not on [...] Negative.?Miscellaneous:?Marital status: Single. Occupation: Print shop at [employer] ???Nonsmoker since 2007; no sig alcohol. * [...] Procedure Codes:?3017F COLOR ECTAL CA SCREEN DOC [id number] TOBACCO NON-[id number] BP SCR NOT PRFRM REC REASON NOS * Preventive Medicine:? ??Counseling:?Care goal follow-up plan:?Above Normal BMI Follow-up?Giving encouragement to exercise,?BMI management provided?Yes.? * Follow Up:?prn * * Sign off status: Completed true * Provider:?Sabino Cormier MD Date:? 024 Generated for Jaime cancino/Trish/Camelia on:?07/27/2024 07:57 AM EDT History and Physical Notes * [...] or dysphagia. He describes taking an occasional nuyl-rxy-tmbkfzv antacid for reflux symptoms but not on [...]
== END 2024-07-27 07:50 | disposition home or self-care (01) ==
LOC: HO.MRI 07:49
PROVIDERS: PCP Physician Assistant; Visit Provider Physician Assistant
DX: M75.111 Incomplete rotator cuff tear or rupture of right shoulder, not specified as traumatic (principal)
CPT/HCPCS: 73221

== ENCOUNTER 2024-10-16 08:55 | Outpatient (REF) | payer OTHER, SELFPAY ==
--- NOTE | ~2024-10-16 | XR_ITS ---
EXAMINATION: XR SHOULDER 2 OR MORE VIEWS RIGHT HISTORY: M25.511 - Pain in right shoulder COMPARISON: There are no prior studies available for comparison. FINDINGS: Three views of the right shoulder are submitted. Osseous mineralization is normal. There is no fracture or dislocation. The glenohumeral joint is maintained. There is mild narrowing of the AC joint. The soft tissues are unremarkable. XR/XR shoulder RT min 2V IMPRESSION: Mild narrowing of the AC joint. Electronically signed by: Joshua Rodriguez MD 10/16/2024 02:09 PM EDT
--- OUTSIDE RECORDS SUMMARY | 2024-10-17 09:11 | XMS_ITS | Patient Health Record ---
Author Organization [facility] Address [address] [place] [address] Care Team Providers Care Auto Polisher Name Role Phone Gregory Ayala Primary Care Provider Unavailab Sabino Chanel Unavailable [phone] Allergies Allergen (clinical drug ingredient) Drug/Non Drug [...] Problem Status W/U Status Risk Notes Problem 857422932 Encounter for screening for malignant neoplasm of colon (Z12.11) Active confirmed Problem History of adenomatous polyp of colon (852506636) History of adenomatous polyp of colon (Z86.010) Active confirmed Problem Diverticular disease of colon (709283592) Diverticulosis of large intestine without perforation or abscess without bleeding (K57.30) Active confirmed Problem Screening for malignant neoplasm of rectum (335729254) Encounter for screening for malignant neoplasm of rectum (Z12.12) Active confirmed Problem Preprocedural examination (656173932652952 ) Preprocedural examination (Z01.818) Active confirmed Problem 321398275 Gastroesophageal reflux disease, esophagitis presence not specified (K21.9) Active confirmed Encounters Encounter Location Date Provider [place] [facility] [place] [address] [place], [place] [phone] 01/28/2024 Sabino Cormier Colon cancer scree adarsh [...] Coverage End Date [employer] [place] [address] [address] [place] [address] [id number] SABINO JONES Self - patient is the insured Medical (General) History Medical History History ICD Code PVC's--Holter monitor--the [facility] reports that he has had numerous PVC's documented on his Holter monitor--he is followed by Dr. Jimenez--neg. cardiac catheterization in 07/2015--on Toprol Denies [place],DM,CVA,Lung disease,renal dise ase GERD-EGD in 04/2016 with a mi nimal hiatal hernia and minimal changes of reflux. Biopsies were negative for Barth's esophagus. Screening colonoscopy with removal of a tubular adenoma in 04/2016 HTN Surgical History Surgery Date(Month/Year) Torn ligaments and tendons i n his left upper extremity in relation to a fall--Dr. Urias
== END 2024-10-16 08:56 | disposition home or self-care (01) ==
LOC: HO.HOSX 08:55
PROVIDERS: Visit Provider Physician Assistant
DX: M75.101 Unspecified rotator cuff tear or rupture of right shoulder, not specified as traumatic (principal); M25.511 Pain in right shoulder
CPT/HCPCS: 73030

== ENCOUNTER 2024-10-16 13:50 | Outpatient (AMB) | payer OTHER, SELFPAY ==
--- NOTE | 2024-10-16 14:09 | A.OFFVIS_ITS ---
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 He states that he was golfing when he T's off he hit the ground and felt sharp pain after. Patient reports ongoing pain and limited ROM, worsening over the last few years. He finds it difficult to raising his arm arm and fully extend. IMPRESSION: 1. Complete retracted tear of the supraspinatus tendon with mild atrophy of the muscle belly. 2. Approximately 50% undersurface tearing of the infraspinatus tendon with involvement of the medial footplate attachment. There is also a small myotendinous injury. There is associated tendinopathy and thinning of the intact tendinous fibers. Normal muscle belly. 3. There is moderate tendinopathy of the subscapularis tendon. There is no discrete tear. 4. There is tendinopathy of the long head of the biceps tendon within the rotator interval. The tendon is otherwise intact. 5. Suspect diffuse degenerative type tearing of the glenoid labrum. 6. Mild to moderate degenerative arthritis of the glenohumeral joint. Moderate to severe degenerative arthritis of the AC joint. 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 Ontiveros this is a 63-year-old left-hand dominant male who works here at the [employer] in the [employer] shop. He presents to the office today for evaluation of a right shoulder injury that he sustained in January of 2024. He reports that he was golfing and accidentally hit the green instead of the ball causing the impact to injure his shoulder. The patient was seen by his primary care provider an MRI was ordered. He is here to review the MRI and discuss possible surgical intervention. [facility] Medical History PVC (premature ventricular contraction) HLD (hyperlipidemia) HTN (hypertension) Asthma SI (sacroiliac) joint dysfunction Surgical History History of esophagogastroduodenoscopy (EGD) H/O colonoscopy Hx of cardiac catheterization Ruptured tendon Family History Father COPD (chronic obstructive pulmonary disease) Mother No problems noted. Maternal Grandmother Colon cancer Sister In good health DMII (diabetes mellitus, type 2) Daughter In good health Brother Mental health disorder Substance use disorder Social History Housing: House Are you a primary healthcare associate to a significant other at home: No Do you presently have visiting nurse or other home services: No Alcohol intake: current Alcohol intake frequency: a few times a month Alcohol type: beer and wine Patient Tobacco Use Status: Former Tobacco user Tobacco use type: Cigarette e-Cigarette/Vaping Use: Never Used Second Hand Smoke Exposure: Yes service: No Current occupational status: employed Current occupation: [employer] Current occupational exposures/hazards: No Cognitive needs: No Hearing needs: No Vision needs: Yes (glasses) Review of Systems Const All systems reviewed & are unremarkable except as noted in HPI and below Physical Exam Const General: cooperative, healthy appearing and no acute distress Resp Effort & Inspection: normal respiratory effort and able to speak in complete sentences Extrem Other: Right shoulder: Full shoulder ROM in all planes with weakness. Negative cross- body reach. Positive empty can. Negative drop arm. NVI. Assessment & Plan Assessment & Plan (1) Rotator cuff tear, right: Code(s): M75.101 - Unspecified rotator cuff tear or rupture of right shoulder, not specified as traumatic Category: Medical Plan Mr. Ontiveros this is a 63-year-old left-hand dominant male who works here at the [employer] in the [employer]. He presents to the office today for evaluation of a right shoulder injury that he sustained in January of 2024. He reports that he was golfing and accidentally hit the green instead of the ball causing the impact to injure his shoulder. The patient was seen by his primary care provider an MRI was ordered. He is here to review the MRI and discuss possible surgical intervention. On the office today, Dr. Urias was available to see the patient with me in a collaborative treatment plan was created. At this time and is recommended for an arthroscopic right shoulder rotator cuff repair. It was discussed that the success of the repair we will be determined based off of how retracted the rotator cuff tendon is. We did discuss that there is a possibility that the rotator cuff is not repairable. Dr. Urias and I discussed in detail the procedure and what to expect pre and post operatively. We discussed the risks, benefits and alternatives to the surgery as well as the rehabilitation course. The risks; which include, but are not limited to infection, bleeding, nerve injury, ongoing pain, swelling, and stiffness, perioperative risk of injury to bones and soft tissues, and blood clots. I?ve answered all questions and with their understanding they have consented to move forward with right shoulder rotator cuff repair. Patient would like to proceed with surgery in December of this year. MRI of the right shoulder obtained on 07/27/2024: IMPRESSION: 1. Complete retracted tear of the supraspinatus tendon with mild atrophy of the muscle belly. 2. Approximately 50% undersurface tearing of the infraspinatus tendon with involvement of the medial footplate attachment. There is also a small myotendi nous injury. There is associated tendinopathy and thinning of the intact tendinous fibers. Normal muscle belly. 3. There is moderate tendinopathy of the subscapularis tendon. There is no discrete tear. 4. There is tendinopathy of the long head of the biceps tendon within the rotator interval. The tendon is otherwise intact. 5. Suspect diffuse degenerative type tearing of the glenoid labrum. 6. Mild to moderate degenerative arthritis of the glenohumeral joint. Moderate to severe degenerative arthritis of the AC joint. X-rays of the right shoulder which were obtained while in the office today and were reviewed by me, Celeste Ricks PA-C, revealed no acute fracture or dislocation. Orders: Orders XR shoulder RT min 2V Today M25.511 - Pain in right shoulder Coding Level of Care Code New Pt Level 4 (30894) Diagnoses Rotator cuff tear, right M75.101
--- OUTSIDE RECORDS SUMMARY | 2024-10-16 15:03 | XMS_ITS | Patient Health Record ---
Author Organization [facility] Address [address] [place] [address] Care Team Providers Care Ssis Etl Developer Name Role Phone Gregory Ayala Primary Care Provider Unavailab Sabino Chanel Unavailable [phone] Allergies Allergen (clinical drug ingredient) Drug/Non Drug [...] Problem Status W/U Status Risk Notes Problem 533293513 Encounter for screening for malignant neoplasm of colon (Z12.11) Active confirmed Problem History of adenomatous polyp of colon (300824010) History of adenomatous polyp of colon (Z86.010) Active confirmed Problem Diverticulosis o f large intestine without perforation or abscess without bleeding (K57.30) Active confirmed Problem Screening for malignant neoplasm of rectum (130654137) Encounter for screening for malignant neoplasm of rectum (Z12.12) Active confirmed Problem Preprocedural examination (450612572422295 ) Preprocedural examination (Z01.818) Active confirmed Problem 858143155 Gastroesophageal reflux disease, esophagitis presence not specified (K21.9) Active confirmed Encounters Encounter Location Date Provider Diagnosis [facility] [place] Out[place] [address] [place], [place] [phone] 01/28/2024 Sabino Cormier Colon cancer scree adarsh [...] hemorrhoids (ICD-10 - K64.8) Plan Of Treatment Future Test Test Name Order Date UPPER GI ENDOSCOPY 12/20/2015 COLONOSCOPY 12/20/2015 COLONOSCOPY 09/17/2023 Insurance Providers Payer Name Payer Address Payer Phone Subscriber Number Group Number Insured Name Patient Relationship to Insured Coverage Start Date Coverage End Date [employer] [place] [address] [address] [place] [address] [id number] KARENSABINO Self - patient is the insured Medical (General) History Medical History History ICD Code PVC's--Holter monitor--the [facility] reports that he has had numerous PVC's documented on his Holter monitor--he is followed by Dr. Jimenez--neg. cardiac catheterization in 07/2015--on Toprol Denies [place],DM,CVA,Lung disease,renal dise ase GERD-EGD in 04/2016 with a mi nimal hiatal hernia and minimal changes of reflux. Biopsies were negative for Barth's esophagus. Screening colonoscopy with removal of a tubular adenoma in 04/2016 HTN Surgical History Surgery Date(Month/Year) Torn ligaments and tendons i n his left upper extremity in relation to a fall--Dr. Urias
== END 2024-10-16 14:46 | disposition home or self-care (01) ==
PROVIDERS: PCP Physician Assistant; Visit Provider Physician Assistant
DX: M75.101 Unspecified rotator cuff tear or rupture of right shoulder, not specified as traumatic (principal)
CPT/HCPCS: 99204

== ENCOUNTER → 2024-10-16 13:54 | Outpatient (BNV) | payer OTHER, SELFPAY | PROVIDERS: Visit Provider Radiology Diagnostic Radiology | DX: M25.511 Pain in right shoulder (principal) | CPT/HCPCS: 73030 ==

== ENCOUNTER 2024-12-21 09:51 | Outpatient (AMB) | payer OTHER, SELFPAY ==
--- OUTSIDE RECORDS SUMMARY | 2024-01-28 03:30 | XMS_ITS ---
Author Organization [facility] Address [address] [place] [address] Care Team Providers Care Veterinary Radiologist Name Role Phone Gregory Ayala Primary Care Provider Unavailab Sabino Chanel Unavailable [phone] REASON FOR VISIT colon screening Problems Problem Type SNOMED Code ICD Code Onset Dates Problem Status W/U Status Risk Notes Problem Diverticular disease of colon (199328058) Diverticulosis of large intestine without perforation or abscess without bleeding (K57.30) Active confirmed Encounters Encounter Location Date Provider Diagnosis [facility] [place] Out[place] [address] [place] [phone] 01/28/2024 Sabino Cormier Colon cancer scree adarsh [...] Of Treatment No Information Progress Notes * SABINO JONESDOB:1960 (64 yo M)Acc No.[id number]:01/28/2024 COLON WITH MAC Patient: SABINO SELF Provider: Rosalinda Cormier MD :1960 A ge:63 Y S ex:Male Date:01/28/2024 Address:[address] [place], [place] [address]Arthur [id number] Pcp:Gregory Ayala Subjective: * Chief Complaints: * [...] 1 Generated for Jaime cancino/Trish/Reubenitting on: 0 12/21/2024 11:31 AM EDT
--- NOTE | 2024-12-21 10:05 | A.OFFVIS_ITS ---
Vital Signs 12/21/24 10:38 Height 5 ft 10 in Weight 195 lb BMI 28.0 BP 119/78 Blood Pressure Location Lt brachial Position Sitting Pulse 86 Handedness Left Intake Visit Reasons: Pre-Rt RTC Repair 12/27/24 Intake Note: Joshua is a 63 year old left hand dominant male who presents today for a pre op appointment for his right shoulder rotator cuff repair 12/27/24 NE. Patient was given the pain management form to sign. Accompanied by: Spouse Allergies loratadine (From CLARITIN) Allergy (Unknown, Verified 12/21/24 10:38) TACHYCARDIA HPI HPI Pre-Rt RTC Repair 12/27/24: Details: Mr. Ontiveros is a left-hand dominant male who presents to the office today for his preoperative history and physical examination pending right shoulder rotator cuff repair tentatively scheduled for 12/27/[address] Urias. Right shoulder pain began January of 2024 while golfing he felt sharp pain after missing the TI and hitting the ground. Ever since then he has had ongoing discomfort and difficulty with elevating the right arm above shoulder height. An MRI was obtained and he was found to have a rotator cuff tear and the recommendation was to perform an arthroscopic rotator cuff repair. [facility] Medical History (Updated 12/13/24 @ 09:13 by Meggan Bhardwaj RN) Arthritis Back pain COVID-19 PVC (premature ventricular contraction) HLD (hyperlipidemia) HTN (hypertension) Asthma SI (sacroiliac) joint dysfunction Surgical History History of esophagogastroduodenoscopy (EGD) H/O colonoscopy Hx of cardiac catheterization Ruptured tendon Family History Father COPD (chronic obstructive pulmonary disease) Mother No problems noted. Maternal Grandmother Colon cancer Sister In good health DMII (diabetes mellitus, type 2) Daughter In good health Brother Mental health disorder Substance use disorder Social History Housing: House Are you a primary family day care worker to a significant other at home: No Do you presently have visiting nurse or other home services: No Alcohol intake: current Alcohol intake frequency: a few times a month Alcohol type: beer and wine Patient Tobacco Use Status: Former Tobacco user Tobacco use type: Cigarette e-Cigarette/Vaping Use: Never Used Second Hand Smoke Exposure: Yes service: No Current occupational status: employed Current occupation: [employer] Current occupational exposures/hazards: No Cognitive needs: No Hearing needs: No Vision needs: Yes (glasses) Review of Systems Const All systems reviewed & are unremarkable except as noted in HPI and below Physical Exam Vital Signs: Last Vital Signs Pulse 86 12/21/24 10:38 BP 119/78 12/21/24 10:38 BMI result Body Mass Index 28.0 Const General: cooperative, healthy appearing and no acute distress Resp Effort & Inspection: normal respiratory effort and able to speak in complete sentences Extrem Other: Right shoulder: Full shoulder ROM in all planes with weakness. Negative cross- body reach. Positive empty can. Negative drop arm. NVI. Psych Appearance: grossly normal Mental Status: mental status grossly normal Attitude: cooperative Assessment & Plan Assessment & Plan (1) Incomplete rotator cuff tear or rupture of right shoulder, not specified as traumatic: Code(s): M75.111 - Incomplete rotator cuff tear or rupture of right shoulder, not specified as traumatic Category: Medical Plan I discussed the proposed right shoulder arthroscopy procedure for rotator cuff repair in detail and that the goal of the surgery is to relieve pain and improve shoulder function, strength and attempt to prevent further tendon damage or muscle degeneration.? The procedure is typically done arthroscopically, although in some cases an open incision may be needed (biceps tenodesis).? The torn tendons are sutured and reattached to the bone using anchors.? Other necessary procedures (ie.)? Subacromial decompression and debridement may be performed based on intraoperative findings.? We discussed the risks, benefits and alternatives to the surgery as well as the rehabilitation course.? The risks; which include, but are not limited to infection, bleeding, nerve injury, ongoing pain, swelling, and stiffness, perioperative risk of injury to bones and soft tissues, and blood clots.? Specific risks to the shoulder include stiffness, frozen shoulder, re-tear of the repair, incomplete pain relief, shoulder weakness, delayed healing or nonhealing of the tendon and hardware (anchor) irritation.?? Expected Benefits: Improve shoulder strength and function. Reduce or eliminate pain, restore motion for daily activities and work. Prevention of tear enlargement and/or further muscle degeneration. Improve quality of life and allow return to sports or hobbies.? Alternatives: Continued physical therapy, NSAIDs, cortisone injections and/or activity modifications.? The patient is aware these may manage symptoms but will not repair the torn tendon. Postoperative recovery was also discussed with the patient.? The patient will remain in the sling for 6 weeks postoperatively and attend physical therapy for several months.? The patient will be unable to drive for 6 weeks while he is in the sling and/or while taking narcotic pain medication.? Full recovery may take 6-12 months.? Adherence to the rehabilitation plan is essential for optimal outcome.? A physical therapy order has been placed while in the office today with instruction given to the patient to contact physical therapy to make an appointment for one week status post surgery.? Additionally, the patient was fit for an abduction sling while in the office today off the shelf.? This will be brought the day of surgery. Post operative medications were sent to the [facility] pharmacy while in the office today with instructions for the pharmacy to bring to the PACU on the date of surgery.? Oxycodone 5mg PO Q4-6H PRN, quantity 42 tabs for 7 days and morphine ER 15 mg (MS Contin) PO Q12H PRN, quantity 6 tabs for 3 days.? ? The patient has had the opportunity to ask all questions and was satisfied with all answers.? The patient demonstrates understanding of the risks, benefits and alternatives.? The patient understands that there are no guarantees that can be made regarding the outcome. With the patient's understanding they have consented to move forward with the administration of anesthesia, right shoulder arthroscopy rotator cuff repair as well as any additional procedures deemed necessary during surgery. The surgical consent form was given to the patient for additional review and signed by the patient with myself as a witness.? Orders: Orders PT Evaluation and Treatment Today M75.101 - Unspecified rotator cuff tear or rupture of right shoulder, not specified as traumatic, M75.111 - Incomplete rotator cuff tear or rupture of right shoulder, not specified as traumatic Medications: New oxycodone-acetaminophen 5-325 mg Partial Fill upon patient request. Pharmacy to please bring to PACU on the date of surgery 12/27/24 1 tab PO Q4- 6H PRN 42 tabs 0RF pain 7 days morphine ER (MS Contin) Partial Fill upon patient request. Pharmacy to please bring to PACU on the date of surgery 12/27/24 15 mg PO Q12H 6 tabs 0RF 3 days Coding Level of Care Code Global (60566) Diagnoses Incomplete rotator cuff tear or rupture of right shoulder, not specified as traumatic M75.111
[2024-12-21 10:38] VITALS: BP 119/78; PULSE 86; BMI 28.0
--- OUTSIDE RECORDS SUMMARY | 2024-12-21 11:31 | XMS_ITS | Patient Health Record ---
Author Organization [facility] Address [address] [place] [address] Care Team Providers Care Dental Scheduling Coordinator Name Role Phone Gregory Ayala Primary Care Provider Unavailab Sabino Chanel Unavailable [phone] Allergies Allergen (clinical drug ingredient) Drug/Non Drug Allergy documented on EMR Reaction Allergy Type Onset Date Status Claritin Unknown Drug Allergy Active Reason For Referral No Information Medications Medication SIG (Take, Route, Fr equency, Duration) Notes Start Date End Date Status Lisinopril 20 MG Oral for 90 A ctive Problems Problem Type SNOMED Code ICD Code Onset Dates Problem Status W/U Status Risk Notes Problem 333823204 Encounter for screening for malignant neoplasm of colon (Z12.11) Active confirmed Problem History of adenomatous polyp of colon (592554966) History of adenomatous polyp of colon (Z86.010) Active confirmed Problem Diverticular disease of colon (493895334) Diverticulosis of large intestine without perforation or abscess without bleeding (K57.30) Active confirmed Problem Screening for malignant neoplasm of rectum (312421244) Encounter for screening for malignant neoplasm of rectum (Z12.12) Active confirmed Problem Preprocedural examination (347757420692550 ) Preprocedural examination (Z01.818) Active confirmed Problem 858411540 Gastroesophageal reflux disease, esophagitis presence not specified (K21.9) Active confirmed Encounters Encounter Location Date Provider [place] [facility] [place] [address] [place], [place] [phone] 01/28/2024 Sabino Cormier Colon cancer scree adarsh [...] Coverage End Date [employer] [place] [address] [address] [place] [address] [id number] 4 SABINO JONES Self - patient is the insured Medical (General) History Medical History History ICD Code PVC's--Holter monitor--the p [facility] reports that he has had numerous PVC's documented on his Holter monitor--he is followed by Dr. Jimenez--neg. cardiac catheterization in 07/2015--on Toprol Denies [place],DM,CVA,Lung disease,renal dise ase GERD-EGD in 04/2016 with a mi nimal hiatal hernia and minimal changes of reflux. Biopsies were negative for Barth's esophagus. Screening colonoscopy with removal of a tubular adenoma in 04/2016 HTN Surgical History Surgery Date(Month/Year) Torn ligaments and tendons i n his left upper extremity in relation to a fall--Dr. Urias
== END 2024-12-21 11:24 | disposition home or self-care (01) ==
LOC: HO.HOS 09:52
PROVIDERS: Visit Provider Physician Assistant
DX: M75.111 Incomplete rotator cuff tear or rupture of right shoulder, not specified as traumatic (principal)
CPT/HCPCS: 99024

== ENCOUNTER 2024-12-27 05:53 | Day surgery (SDC) | payer OTHER, SELFPAY ==
[2024-12-13 09:26] VITALS: BMI 27.3
--- NOTE | 2024-12-26 08:21 | P.CONAN_ITS ---
Documented by User: Galilea Kingsley NP 12/26/24 08:22 HPI - Anesthesia Eval Consult details Narrative: 64yo M for Right Arthroscopic Rotator Cuff Repair PMFSH Active Problems Active Problems: All Active Problems Rotator cuff tear, right (Acute) Incomplete rotator cuff tear or rupture of right shoulder, not specified as traumatic (Acute) Productive cough (Acute) COVID-19 virus infection (Acute) Tinnitus (Acute) Impaired glucose metabolism (Acute) Asthma (Acute) Tubular adenoma of colon (Acute) Annual physical exam (Acute) HLD (hyperlipidemia) (Acute) HTN (hypertension) (Acute) Past Medical History Medical History Arthritis Back pain COVID-19 PVC (premature ventricular contraction) HLD (hyperlipidemia) HTN (hypertension) Asthma SI (sacroiliac) joint dysfunction Family History Family History Father COPD (chronic obstructive pulmonary disease) Mother No problems noted. Maternal Grandmother Colon cancer Sister In good health DMII (diabetes mellitus, type 2) Daughter In good health Brother Mental health disorder Substance use disorder Family history of problems with anesthesia: No Surgical History Surgical History History of esophagogastroduodenoscopy (EGD) H/O colonoscopy Hx of cardiac catheterization Ruptured tendon History of Problems with Anesthesia: No Social History Social History Housing: House Are you a primary care services manager to a significant other at home: No Do you presently have visiting nurse or other home services: No Alcohol intake: current Alcohol intake frequency: a few times a month Alcohol type: beer and wine Patient Tobacco Use Status: Former Tobacco user Tobacco use type: Cigarette e-Cigarette/Vaping Use: Never Used Second Hand Smoke Exposure: Yes Use of substances other than those prescribed or required for medical reasons: No Have you been hit, kicked, punched, or otherwise hurt by someone within the past year? If so, by whom?: No Are you DNR?: No Advance Directives: No Advance Directives Information Provided: Yes Advance Directives on File: No Poor oral hygiene: Yes service: No Current occupational status: employed Current occupation: [employer] Current occupational exposures/hazards: No Cognitive needs: No Hearing needs: No Vision needs: Yes (glasses) Meds Allergies Allergy/AdvReac Type Severity Reaction Status Date / Time loratadine (From CLARITIN) Allergy Unknown TACHYCARDIA Verified 12/21/24 10:38 Exam Height,Weight and Vital Signs: Height 5 ft 10 in Weight 86.183 kg Pertinent Lab Results Pertinent Lab Results: Laboratory Tests 07/14/24 07:10 WBC 6.7 Hgb 15.6 Hct 46.5 Plt Count 273 Sodium 142 Potassium 4.1 Chloride 109 H Carbon Dioxide 29 BUN 20 H Creatinine 0.88 Assessment and Plan Assessment Anesthesia Assessment: Chart Reviewed Final Anesthetic Review Family History of Problems with Anesthesia: No History of Problems with Anesthesia: No Documented by User: Katy Adams MD 12/27/24 09:23 PMFSH Past Medical History Medical History Arthritis Back pain COVID-19 PVC (premature ventricular contraction) HLD (hyperlipidemia) HTN (hypertension) Asthma SI (sacroiliac) joint dysfunction Family History Family History Father COPD (chronic obstructive pulmonary disease) Mother No problems noted. Maternal Grandmother Colon cancer Sister In good health DMII (diabetes mellitus, type 2) Daughter In good health Brother Mental health disorder Substance use disorder Surgical History Surgical History History of esophagogastroduodenoscopy (EGD) H/O colonoscopy Hx of cardiac catheterization Ruptured tendon Social History Social History Housing: House Are you a primary care services manager to a significant other at home: No Do you presently have visiting nurse or other home services: No Alcohol intake: current Alcohol intake frequency: a few times a month Alcohol type: beer and wine Patient Tobacco Use Status: Former Tobacco user Tobacco use type: Cigarette e-Cigarette/Vaping Use: Never Used Second Hand Smoke Exposure: Yes Use of substances other than those prescribed or required for medical reasons: No Have you been hit, kicked, punched, or otherwise hurt by someone within the past year? If so, by whom?: No Are you DNR?: No Advance Directives: No Advance Directives Information Provided: Yes Advance Directives on File: No Poor oral hygiene: Yes service: No Current occupational status: employed Current occupation: [employer] Current occupational exposures/hazards: No Cognitive needs: No Hearing needs: No Vision needs: Yes (glasses) Meds Allergies Allergy/AdvReac Type Severity Reaction Status Date / Time loratadine (From CLARITIN) Allergy Unknown TACHYCARDIA Verified 12/21/24 10:38 Exam Airway Mallampati Class: II TM Dist: >3cm Neck ROM: Full Heart: rrr Lungs: cta Assessment and Plan Assessment Anesthesia Assessment: Anesthesia Plan Discussed Final Anesthetic Review NPO: Yes ASA Class: II Final Preanesthetic Review: No Changes in Pt Med Stat, Meds/Allgs Chart Reviewed, Consent Obtained/Reviewed and Anes Risks/Benef Reviewed Patient Risk: Low Procedure Risk: Low Anesthetic Plan Anesthetic Plan: GA, Regional Block and Agree w/ Assess. and Plan Disposition: Standard PACU
[2024-12-27] VITALS (7 sets, daily range): BP systolic 95–130; BP diastolic 58–85; PULSE 71–86; RESP 14–20; TEMP 36.1–36.5; O2SAT 92–95; BMI 27.3
[2024-12-27] MEDS: Lactated Ringers 1,000 ML 100 ML IVCONT (06:27)
--- NOTE | 2024-12-27 07:28 | MHC.SHP ---
Pre-Procedural Eval Section A - 24 Hr Update-Section A only Date of Service: 12/27/24 The patient is an INPATIENT: No Changes since office visit: No Cold of Flu in the past 2 weeks, No New Medical Problems, No Changes in Medication and No Patient answered all questions The patient has been examined within 24 hours of the surgical procedure. The History & Physical has been completed within 30 days and I have reviewed it.: Yes Section B - Complete if H&P > 30 days Chief Complaint: Complete rotator cuff tear or rupture of right Allergies: Allergies Allergy/AdvReac Type Severity Reaction Status Date / Time loratadine (From CLARITIN) Allergy Unknown TACHYCARDIA Verified 12/21/24 10:38 Plan I have reviewed the history and physical and performed a pertinent physical examination on my patient. No changes have occurred unless specified. Time Spent With Patient Time: Total time managing care of this patient today ____ minutes.
--- NOTE | 2024-12-27 09:58 | P.BOP_ITS ---
Brief Operative Note Date of Service: 12/27/24 Pre-op diagnosis: Right RTC tear Post-op diagnosis: same Procedure: Right RTC repair with SAD and bio inductive patch augmentation Implants: Infante and Nephew 4.75 double loaded medial row x 3 Infante and Nephew 5.0 knotless Helacoil x 1; 5.5 knotless Helacoil x 2 Regeneten Bio inductive colalgen patch, large Surgeon: Pranav Urias MD Anesthesia: GETA and regional Was an Regional Intermodal Truck Driver used for this Procedure?: Yes Regional Intermodal Truck Driver: Celeste Ricks Estimated blood loss (mL): 25 IV fluids (mL): 1,200 Pathology: none sent Condition: stable Disposition: PACU
--- NOTE | 2024-12-27 11:40 | PC.NURSE ---
PATIENT COMPLAINING OF 5/10 PAIN/DISCOMFORT TO INNER RIGHT UPPER ARM. AREA SWOLLEN. THIS RN HAD ANESTHESIOLOGIST CHECK PATIENT AND AREA. ANESTHESIOLOGIST CHECKED WITH DR. SAUL WHO SAID FLUID WOULD GET BETTER IN A FEW DAYS AND FOR PATIENT TO TAKE HIS PAIN MEDICATION PRESCRIBED. PATIENT TOLD TO CALL DR. SAUL WITH ANY ISSUES.
--- NOTE | 2024-12-28 14:12 | W.PM.OPN ---
Operative Note Operative Note Date of Service: 12/27/24 Narrative: Date of Service: 12/27/24 Pre-op diagnosis: Right RTC tear Post-op diagnosis: same Procedure: Right RTC repair with SAD and biceps tenotomy and bio inductive patch augmentation Implants: Infante and Nephew 4.75 double loaded medial row x 3 Infante and Nephew 5.0 knotless Helacoil x 1; 5.5 knotless Helacoil x 2 Regeneten Bio inductive colalgen patch, large Surgeon: Pranav Urias MD Anesthesia: GETA and regional Was an Emergency Medicine Nurse Practitioner used for this Procedure?: Yes Emergency Medicine Nurse Practitioner: Celeste Ricks Estimated blood loss (mL): 25 IV fluids (mL): 1,200 Pathology: none sent Condition: stable Disposition: PACU Procedure in detail: Patient was brought to the operating room and placed the the beach chair position. All bony prominences were well padded and the limb was prepped and draped in standard sterile fashion. A time out was called to identify proper site, proper procedure and proper surgeon. IV antibiotics per weight were administered. I began by making a posterolateral stab incision with a 15 blade. A blunt trochar was placed into the glenohumeral joint and I insufflated the joint with saline and a 30 degree arthroscope was placed. I established an outside- in anterior portal just distal to the biceps tendon. I then began my inspection of the glenohumeral joint. There was a large degenerative SLAP tear at the biceps anchor ( Type 2). There were minimal cartilage changes at the inferior glenoid without humeral head changes. There was a full thickness undersurface RTC tear. The subcapularis was intact. I debrided the loose cartilage of the glenoid and the degenerative labral tearing and performed a biceps tenotomy. I then removed the trochar and entered the subacromial space. A direct lateral portal was then established and I performed a bursectomy. The cuff was then examined. There was a full thickness tear of the supra and infraspinatus with retraction. The tear was mobile however. I placed three medial row double loaded 4.75 mm anchors after using a tap just adjacent to the articular cartilage and then brought the suture limbs ( 12 ) through the medial cuff. I then debrided the bare area down to bleeding bone and, using a cross bridge configuration, brought 4 limbs to each of two lateral 5.5 anchors. In order to bring the posterior cuff down to the bare area I placed 1 5.0 anchor posteriorly and reapproximated the posterior aspect of the infraspinatus with this anchor. This re-approximated the cuff anatomy anatomically. Given the severity of the tear I elected to place a large Regeneten bio inductive implant. Via lateral portal the implant was inserted and held in place with for medial peek timoteo and 2 lateral bone timoteo. This covered the repair perfectly and I was satisfied with the coverage. A 5 mm anterior subacromial decompression was performed with an oval bur via the anterolateral portal. Once I was satisfied, final images were captured and I removed all instrumentation. Portals were closed with nylon. Patient was placed in an abduction sling, extubated and brought to the recovery room in stable condition. There were no known complications.
== END 2024-12-27 11:53 | disposition home or self-care (01) ==
LOC: HO.SSS 05:53
PROVIDERS: PCP Physician Assistant; Visit Provider Orthopaedic Surgery
PROC: (CPT 29827; principal; 2024-12-27 07:30)
DX: S46.011A Strain of muscle(s) and tendon(s) of the rotator cuff of right shoulder, initial encounter (principal); M62.59 Muscle wasting and atrophy, not elsewhere classified, multiple sites; M25.511 Pain in right shoulder; M19.011 Primary osteoarthritis, right shoulder; X58.XXXA Exposure to other specified factors, initial encounter; Y93.53 Activity, golf; Y92.39 Other specified sports and athletic area as the place of occurrence of the external cause; Y99.9 Unspecified external cause status; I10 Essential (primary) hypertension; I49.3 Ventricular premature depolarization; E78.5 Hyperlipidemia, unspecified; J45.909 Unspecified asthma, uncomplicated; M53.3 Sacrococcygeal disorders, not elsewhere classified; Z87.891 Personal history of nicotine dependence
CPT/HCPCS: 29827; 29826; C1713; C1763; J0131; J0165; J0665; J0690; J1100; J2003; J2250; J2405; J2704; J3010

== ENCOUNTER → 2024-12-27 05:53 | Outpatient (BNV) | payer OTHER, SELFPAY | PROVIDERS: PCP Physician Assistant; Visit Provider Orthopaedic Surgery | DX: S46.011A Strain of muscle(s) and tendon(s) of the rotator cuff of right shoulder, initial encounter (principal) | CPT/HCPCS: 29827 ==

== ENCOUNTER 2025-01-02 09:57 | Outpatient (AMB) | payer OTHER, SELFPAY ==
--- OUTSIDE RECORDS SUMMARY | 2024-01-28 03:30 | XMS_ITS ---
Author Organization [facility] Address [address] [place] [address] Care Team Providers Care Paper Box Cutter Name Role Phone Gregory Ayala Primary Care Provider Unavailab Sabino Chanel Unavailable [phone] REASON FOR VISIT colon screening Problems Problem Type SNOMED Code ICD Code Onset Dates Problem Status W/U Status Risk Notes Problem Diverticular disease of colon (298940954) Diverticulosis of large intestine without perforation or abscess without bleeding (K57.30) Active confirmed Encounters Encounter Location Date Provider Diagnosis [facility] [place] [address] [place] [phone] 01/28/2024 Sabino Cormier Colon cancer scree adarsh Z12.11 ; Personal history of colonic polyps Z86.0100 ; Diverticulosis of large intestine without perforation or abscess without bleeding K57.30 and Other hemorrhoids K64.8 Assessments Encounter Date Diagnosis (ICD Code) Assessment Notes Treatment Notes Treatment Clinical Notes Section Notes 01/28/2024 Colon cancer screening (ICD-10 - Z12.11) 01/28/2024 Personal history of colonic polyps (ICD-10 - Z86.0100) 01/28/2024 Diverticulosis of large intestine without perforation or abscess without bleeding (ICD-10 - K57.30) 01/28/2024 Other hemorrhoids (ICD-10 - K64.8) Plan Of Treatment No Information Progress Notes * KARENSABINODOB:1960 (64 yo M)Acc No.[id number]:01/28/2024 COLON WITH MAC Patient: SABINO SELF Provider: Rosalinda Cormier MD :1960 A ge:63 Y S ex:Male Date:01/28/2024 Address:[address] [place], [place] [address]Arthur [id number] Pcp:Gregory Ayala Subjective: * Chief Complaints: * 1 . Colon screening. * Medical History: Objective: * Vitals: Assessment: * Assessment: 1. C olon cancer screening - Z12.11 (Primary) 2 . P ersonal history of colonic polyps - Z86.0100 3 . D iverticulosis of large intestine without perforation or abscess without bleeding - K57.30 4 . O ther hemorrhoids - K64.8 ? Plan: * Treatment: * Procedure Codes: 4 5378 DIAGNOSTIC COLONOSCOPY, Modifiers: 33 * * The named appointment provid er may or may not be the originator of this progress note, and it is not deemed complete until electronically signed by the appointment provider. Sign off status: Pending * Provider: Rosalinda Cormier MD Date: 1 Generated for Jaime cancino/Trish/Reubenitting on: 0 01/02/2025 10:56 AM EDT
--- NOTE | 2025-01-02 10:06 | A.OFFVIS_ITS ---
Vital Signs 01/02/25 10:12 Height 5 ft 10 in Weight 190 lb BMI 27.3 Handedness Left Intake Visit Reasons: PO-Rt RTC Repair 12/27/24 NE Intake Note: Joshua is a 64 year old male who presents today for a post operative appointment status post right RTC repair with SAD and bio inductive patch augmentation done on 12/27/[address] Urias. Patient states that he is feeling very sore in his shoulder. He has been doing is pendulum exercises. Allergies loratadine (From CLARITIN) Allergy (Unknown, Verified 01/02/25 10:11) TACHYCARDIA HPI HPI PO-Rt RTC Repair 12/27/24 NE: Details: Mr. Ontiveros is a 64-year-old male who presents to the office today accompanied by his status post right shoulder rotator cuff repair with subacromial decompression and collagen patching. He presents to the office today in the abd uction sling appropriately positioned. He reports his 1st physical therapy session is tomorrow. Additionally, he is no longer taking any narcotic pain medications since postop day 2 due to constipation. His pain has been manageable. No additional complaints. [facility] Medical History Arthritis Back pain COVID-19 PVC (premature ventricular contraction) HLD (hyperlipidemia) HTN (hypertension) Asthma SI (sacroiliac) joint dysfunction Surgical History History of esophagogastroduodenoscopy (EGD) H/O colonoscopy Hx of cardiac catheterization Ruptured tendon Family History Father COPD (chronic obstructive pulmonary disease) Mother No problems noted. Maternal Grandmother Colon cancer Sister In good health DMII (diabetes mellitus, type 2) Daughter In good health Brother Mental health disorder Substance use disorder Social History Housing: House Are you a primary animal care assistant to a significant other at home: No Do you presently have visiting nurse or other home services: No Alcohol intake: current Alcohol intake frequency: a few times a month Alcohol type: beer and wine Patient Tobacco Use Status: Former Tobacco user Tobacco use type: Cigarette e-Cigarette/Vaping Use: Never Used Second Hand Smoke Exposure: Yes service: No Current occupational status: employed Current occupation: [employer] Current occupational exposures/hazards: No Cognitive needs: No Hearing needs: No Vision needs: Yes (glasses) Review of Systems Const All systems reviewed & are unremarkable except as noted in HPI and below Physical Exam Vital Signs: BMI result Body Mass Index 27.3 Const General: cooperative, healthy appearing and no acute distress Resp Effort & Inspection: normal respiratory effort and able to speak in complete sentences Extrem Other: Right shoulder incision sites are clean dry and intact. Sutures intact. No surrounding erythema or drainage. No signs of infection. Forward flexion abduction to 45 degrees. External rotation to neutral. NVI. Psych Appearance: grossly normal Mental Status: mental status grossly normal Attitude: cooperative Assessment & Plan Assessment & Plan (1) Status post right rotator cuff repair: Code(s): Z98.890 - Other specified postprocedural states Category: Surgical Plan Mr. Ontiveros is a 64-year-old male who presents to the office today accompanied by his status post right shoulder rotator cuff repair with subacromial decompression and collagen patching. He presents to the office today in the abduction sling appropriately positioned. He reports his 1st physical therapy session is tomorrow. Additionally, he is no longer taking any narcotic pain medications since postop day 2 due to constipation. His pain has been manageable. No additional complaints. While the office today, sutures removed and Steri-Strips were applied. There is no evidence of infection at this time. He was placed back into the abduction sling and instructed to remain in this for a total of 6 weeks postoperatively. He is unable to drive during the 6 weeks while on the sling. He will continue taking ibuprofen and Tylenol as needed for pain. Lastly, the patient has his 1st physical therapy session tomorrow in which he will attend. He will follow up in [address] Urias, sooner if needed. Coding Level of Care Code Global (14756) Diagnoses Status post right rotator cuff repair Z98.890
[2025-01-02 10:12] VITALS: BMI 27.3
--- OUTSIDE RECORDS SUMMARY | 2025-01-02 10:56 | XMS_ITS | Patient Health Record ---
Author Organization [facility] Address [address] [place] [address] Care Team Providers Care Retort Pre Cooker Name Role Phone Gregory Ayala Primary Care Provider Unavailab Sabino Chanel Unavailable [phone] Allergies Allergen (clinical drug ingredient) Drug/Non Drug [...] Problem Status W/U Status Risk Notes Problem [id number] Encounter for screening for malignant neoplasm of colon (Z12.11) Active confirmed Problem History of adenomatous polyp of colon (984705441) History of adenomatous polyp of colon (Z86.010) Active confirmed Problem Diverticular disease of colon (492746326) Diverticulosis of large intestine without perforation or abscess without bleeding (K57.30) Active confirmed Problem Screening for malignant neoplasm of rectum (226301207) Encounter for screening for malignant neoplasm of rectum (Z12.12) Active confirmed Problem Preprocedural examination (643113631710530 ) Preprocedural examination (Z01.818) Active confirmed Problem 069564592 Gastroesophageal reflux disease, esophagitis presence not specified (K21.9) Active confirmed Encounters Encounter Location Date Provider Diagnosis [facility] [place] [facility] [address] [place], [place] [phone] 01/28/2024 Sabino Cormier Colon cancer scree adarsh [...] Coverage End Date [employer] [address] [address] [place] [address] [id number] SABINO JONES Self - patient is the insured Medical (General) History Medical History History ICD Code PVC's--Holter monitor--the p akilah reports that he has had numerous PVC's documented on his Holter monitor--he is followed by Dr. Jimenez--neg. cardiac catheterization in 07/2015--on Toprol Denies MS,DM,CVA,Lung disease,renal dise ase GERD-EGD in 04/2016 with a mi nimal hiatal hernia and minimal changes of reflux. Biopsies were negative for Barth's esophagus. Screening colonoscopy with removal of a tubular adenoma in 04/2016 HTN Surgical History Surgery Date(Month/Year) Torn ligaments and tendons i n his left upper extremity in relation to a fall--Dr. Urias
== END 2025-01-02 10:50 | disposition home or self-care (01) ==
LOC: HO.HOS 09:58
PROVIDERS: Visit Provider Physician Assistant
DX: Z98.890 Other specified postprocedural states (principal)
CPT/HCPCS: 99024

== ENCOUNTER 2025-01-03 07:25 | Outpatient (REF) | payer OTHER, SELFPAY ==
--- OUTSIDE RECORDS SUMMARY | 2024-01-28 03:30 | XMS_ITS ---
Author Organization [facility] Address [address] [place] [address] Care Team Providers Care Case Operator Name Role Phone Gregory Ayala Primary Care Provider Unavailab Sabino Chanel Unavailable [phone] REASON FOR VISIT colon screening Problems Problem Type SNOMED Code ICD Code Onset Dates Problem Status W/U Status Risk Notes Problem Diverticular disease of colon (526580078) Diverticulosis of large intestine without perforation or abscess without bleeding (K57.30) Active confirmed Encounters Encounter Location Date Provider Diagnosis [facility] [place] Outpatient [address] [place] [phone] 01/28/2024 Sabino Cormier Colon cancer scree adarsh [...] Progress Notes * KARENSABINODOB:1960 (64 yo M)Acc No.[id number]:01/28/2024 COLON WITH MAC Patient: SABINO SELF Provider: Rosalinda Cormier MD :1960 A ge:63 Y S ex:Male Date:01/28/2024 Address:[address] [place], [place] [address]Arthur [facility] Pcp:Gregory Ayala Subjective: * Chief Complaints: * [...] Date: 1 Generated for Jaime cancino/Trish/Tannersmitting on: 07:27 AM EDT
--- OUTSIDE RECORDS SUMMARY | 2025-01-03 07:27 | XMS_ITS | Patient Health Record ---
Author Organization [facility] Address [address] [place] [address] Care Team Providers Care Skiagrapher Name Role Phone Gregory Ayala Primary Care Provider Unavailab Sabino Chanel Unavailable [phone] Allergies Allergen (clinical drug ingredient) Drug/Non Drug [...] Problem Status W/U Status Risk Notes Problem [id number] Encounter for screening for malignant neoplasm of colon (Z12.11) Active confirmed Problem History of adenomatous polyp of colon (530699071) History of adenomatous polyp of colon (Z86.010) Active confirmed Problem Diverticular disease of colon (834654600) Diverticulosis of large intestine without perforation or abscess without bleeding (K57.30) Active confirmed Problem Screening for malignant neoplasm of rectum (639155433) Encounter for screening for malignant neoplasm of rectum (Z12.12) Active confirmed Problem Preprocedural examination (844968350891377 ) Preprocedural examination (Z01.818) Active confirmed Problem 233582120 Gastroesophageal reflux disease, esophagitis presence not specified (K21.9) Active confirmed Encounters Encounter Location Date Provider Diagnosis [facility] [place] Out[facility] [address], [place] [phone] 01/28/2024 Sabino Cormier Colon cancer scree adarsh [...] Coverage End Date [employer] [place] [address] [address] [place] [address] [id number] SABINO JONES Self - patient is the insured Medical (General) History Medical History History ICD Code PVC's--Holter monitor--the p akilah reports that he has had numerous PVC's documented on his Holter monitor--he is followed by Dr. Jimenez--neg. cardiac catheterization in 07/2015--on Toprol Denies NM,DM,CVA,Lung disease,renal dise ase GERD-EGD in 04/2016 with a mi nimal hiatal hernia and minimal changes of reflux. Biopsies were negative for Barth's esophagus. Screening colonoscopy with removal of a tubular adenoma in 04/2016 HTN Surgical History Surgery Date(Month/Year) Torn ligaments and tendons i n his left upper extremity in relation to a fall--Dr. Urias
[2025-01-03 08:21] LABS: Hematocrit 45.3 % (42.0-52.0); Hemoglobin 14.9 g/dl (14.0-18.0); Mean Corpuscular HGB Conc 32.9 g/dl (31.0-36.0); Mean Corpuscular Hemoglobin 29.3 pg (27.0-33.0); Mean Corpuscular Volume 89.2 fL (80.0-98.0); NRBC Abs Auto 0.000 X10*3/uL (0.0-0.012); NRBC Pct Auto 0.0 /100WBC (0.0-0.2); Platelet Count 326 X10*3/uL (160-400); Red Blood Count 5.08 X10*6/uL (4.60-5.80); White Blood Count 8.2 X10*3/uL (4.8-10.8)
[2025-01-03 09:01] LABS: Alanine Aminotransferase 35 U/L (0-40); Albumin Level 4.6 g/dL (3.5-5.0); Alkaline Phosphatase 72 U/L (39-117); Anion Gap 10 (12-20); Aspartate Amino Transferase 22 U/L (5-37); Blood Urea Nitrogen 18 mg/dL (9-16); Calcium 9.4 mg/dL (8.4-10.2); Carbon Dioxide 28 mmol/L (22-29); Chloride 106 mmol/L (96-108); Cholesterol 203 mg/dL (<200); Estimated Glomerular Filt Rate > 60; HDL Cholesterol 44 mg/dL (>40); Potassium 3.9 mmol/L (3.3-5.1); Sodium 140 mmol/L (135-145); Total Protein 6.9 g/dL (6.5-8.0); Triglycerides 94 mg/dL (<150)
== END 2025-01-03 07:26 | disposition home or self-care (01) ==
LOC: HO.LAB 07:25
PROVIDERS: PCP Physician Assistant; Visit Provider Physician Assistant
DX: I10 Essential (primary) hypertension (principal); J45.20 Mild intermittent asthma, uncomplicated; E78.00 Pure hypercholesterolemia, unspecified; R73.09 Other abnormal glucose
CPT/HCPCS: 36415; 80053; 80061; 83036; 85027

== ENCOUNTER 2025-01-17 08:11 | Outpatient (AMB) | payer OTHER, SELFPAY ==
[2025-01-17 08:13] VITALS: BP 120/82; PULSE 84; TEMP 36.2; O2SAT 97; BMI 27.4
--- NOTE | 2025-01-17 08:13 | A.OFFPC_ITS ---
Vital Signs 01/17/25 08:13 Height 5 ft 10 in Weight 191 lb 4 oz BMI 27.4 BP 120/82 Blood Pressure Location Lt brachial Position Sitting Pulse 84 Pulse Source Pulse Oximeter Temp 97.1 F Temp Source Temporal Artery Scan Pulse Oximetry (%) 97 Oxygen Delivery Method Room Air Intake Visit Reasons: f/u HLD/ IGM Allergies loratadine (From CLARITIN) Allergy (Unknown, Verified 01/17/25 08:24) TACHYCARDIA Medication List - Last Reconciled 01/17/25 by Gregory Ayala PA-C ibuprofen 800 mg PO Q8H PRN 7 days lisinopril 20 mg PO DAILY 90 days Tobacco use date assessed: 01/17/25 Fall risk assessment: No Falls in past year Last assessed Fall Risk: 01/17/25 Dental Screening Dental Screen Date: 01/17/25 Did you have a dental visit in the last 12 months?: Yes Did you have a dental problem in the last 6 months where you did not have access to dental care?: No Was dental information given to patient?: Patient has dentist HPI f/u HLD/ IGM HPI Details Joshua is a 64 y/o M here today for a follow-up visit ? Pmhx significant for HTN, HLD, impaired glucose metabolism Right shoulder rotator cuff tear: Patient is status post right rotator cuff repair and doing well. He reports his surgery went well though was longer than anticipated as he did have a biceps tear and a full thickness rotator cuff tear. He is now in physical therapy. He has been out of work over the last 3-4 weeks. ? .. ? HTN:? Blood pressure reports systolic 115- 120 systolic.? Blood pressure today in office acceptable..? No report of headaches, CP, SOB. .. Borderline high cholesterol: His most recent lipid panel showing elevation in his total cholesterol and LDL. He reports dietary indiscretion as of lately.. He does understand he needs to work on dietary modifications. Will work on lifestyle modifications to reduce his high cholesterol. .. ?impaired glucose metabolism:? Most recent fasting blood sugar still slightly elevated in A1c in prediabetic range. Did discuss perhaps trying metformin to help reduce his sugars though he would like to work on dietary modifications. Laboratory Tests 07/14/24 01/03/25 07:10 07:40 RBC 5.08 Creatinine 0.93 Fasting Glucose 121 H 114 H Hemoglobin A1c % 6.0 6.0 Cholesterol 203 H LDL Cholesterol, C alc 126 H 141 H PSA Screen 1.18 PFSH Medical History Arthritis Back pain COVID-19 PVC (premature ventricular contraction) HLD (hyperlipidemia) HTN (hypertension) Asthma SI (sacroiliac) joint dysfunction Surgical History History of esophagogastroduodenoscopy (EGD) H/O colonoscopy Hx of cardiac catheterization Ruptured tendon Family History Father COPD (chronic obstructive pulmonary disease) Mother No problems noted. Maternal Grandmother Colon cancer Sister In good health DMII (diabetes mellitus, type 2) Daughter In good health Brother Mental health disorder Substance use disorder Social History Housing: House Are you a primary pet caretaker to a significant other at home: No Do you presently have visiting nurse or other home services: No Alcohol intake: current Alcohol intake frequency: a few times a month Alcohol type: beer and wine Patient Tobacco Use Status: Former Tobacco user Tobacco use type: Cigarette e-Cigarette/Vaping Use: Never Used Second Hand Smoke Exposure: Yes service: No Current occupational status: employed Current occupation: [employer] Current occupational exposures/hazards: No Cognitive needs: No Hearing needs: No Vision needs: Yes (glasses) Questionnaire PHQ-9 Over the last 2 weeks, how often have you been bothered by any of the following problems? 1. Little interest or pleasure in doing things: not at all 2. Feeling down, depressed, or hopeless: not at all 3. Trouble falling or staying asleep, or sleeping too much: not at all 4. Feeling tired or having little energy: not at all 5. Poor appetite or overeating: not at all 6. Feeling bad about yourself - or that you are a failure or have let yourself or your family down: not at all 7. Trouble concentrating on things, such as reading the newspaper or watching television: not at all 8. Moving or speaking so slowly that other people could have noticed. Or the opposite - being so fidgety or restless that you have been moving around a lot more than usual: not at all 9. Thoughts that you would be better off or of hurting yourself in some way: not at all Total score: 0 Depression Screening Interpretation: Negative Depression Screening Done: Yes 91719 - PHQ-9 Billing: Yes Source: Developed by Drs. Joshua Sumner, Amber Aguila, Darío Reeves and colleagues, with an educational debra from [employer]. Thrive Questionnaire Date Thrive assessed: 04/17/24 I am a: Patient What is your living situation today?: I have a steady place to live Within the past 12 months, did the food you bought not last and you didn't have the money to get more?: Never true Within the past 12 months, did you worry whether your food would run out before you got money to buy more?: Never true Do you have trouble paying for medicines?: No Do you have trouble getting transportation to medical appointments?: No Do you have trouble paying your heating and electricity bill?: No Do you have trouble taking care of your child, family member or friend?: No Do you have trouble with day-to-day activities such as bathing, preparing meals, shopping, managing finances, etc.?: No Are you currently unemployed and looking for a job?: No Are you interested in more education?: No Please select the resources that you would like help with: None Currently or been in a relationship where the following occur: No concerns reported THRIVE Score: 0 AUDIT C Alcohol Use Questionnaire (AUDIT-C) 1. How often do you have a drink containing alcohol?: 2-4 times a month 2. How many drinks containing alcohol do you have on a typical day when you are drinking?: 1 or 2 3. How often do you have six or more drinks on one occasion?: Never Total Score: 2 ARCELIA-7 AMB Questionnaire ARCELIA-7 Date ARCELIA - 7 assessed: 04/17/24 Feeling nervous, anxious, or on edge: 0 = Not at all Not being able to stop or control worryin = Not at all Worrying too much about different things: 0 = Not at all Trouble relaxin = Not at all Being so restless that it is hard to sit still: 0 = Not at all Becoming easily annoyed or irritable: 0 = Not at all Feeling afraid as if something awful might happen: 0 = Not at all Total ARCELIA-7 score (0-4 normal; 5-9 mild; 10-14 moderate; 15-21 severe): 0 Source: Developed by Drs. Joshua Sumner, Amber Aguila, Darío Reeves and colleagues, with an educational debra from [employer]. ARCELIA-7 Assessment Billing ARCELIA-7 Assessment Tool: ARCELIA-7 Assessment 07274 Review of Systems Const Denies headache(s) Eyes Denies loss of vision ENT Denies vertigo, Denies dizziness, Denies headache(s) and Denies sore throat Card Denies chest pain, Denies leg edema and Denies lightheadedness Resp Denies cough, Denies hemoptysis and Denies wheezing GI Denies abdominal pain, Denies melena, Reports constipation, Denies diarrhea and Denies vomiting Denies dysuria, Denies urinary frequency and Denies urinary urgency Musc Denies arthralgias, Denies joint swelling, Denies numbness and Denies tingling Neuro Denies Abnormal speech present, Denies behavioral changes, Denies vertigo, D enies dizziness, Denies headache(s), Denies loss of vision, Denies memory loss, Denies numbness and Denies tingling Psych Denies anxiety, Denies behavioral changes, Denies depression, Denies memory loss and Denies panic attacks Arash/Lymph Denies easy bleeding and Denies easy bruising Aller/Immun Denies wheezing Physical exam (Primary Care) Vital Signs: Last Vital Signs Temp 97.1 F 01/17/25 08:13 Pulse 84 01/17/25 08:13 BP 120/82 01/17/25 08:13 Pulse Ox 97 01/17/25 08:13 Oxygen Delivery Method Room Air 01/17/25 08:13 BMI result Body Mass Index 27.4 Tobacco/Smoking Status: Tobacco use Status Tobacco use date assessed 01/17/25 01/17/25 08:18 Patient Tobacco Use Status Former Tobacco user 01/17/25 08:18 Tobacco use type Cigarette 01/17/25 08:18 e-Cigarette/Vaping Use Never Used 01/17/25 08:18 PHQ-9: PHQ-9 Score PHQ-9: Total score 0 01/17/25 08:18 Depression Screening Interpretation: Negative Thrive Assessment: Date of Thrive Assessment Date Thrive assessed 04/17/24 01/17/25 08:18 Currently or been in a relationship where the following occur: No concerns reported Const General: healthy appearing, no acute distress, alert and awake Nutritional Appearance: well nourished Orientation/consciousness: oriented to person, oriented to place and oriented to time HENMT Ears: TM's normal bilaterally General nose exam: Normal nasal mucous membranes and turbinates present Eyes Conjunctivae: conjunctivae normal Sclerae: sclerae normal Pupils: Equal, round and reactive pupils present Neck Neck: Yes no lymphadenopathy and Yes no JVD Thyroid: Thyroid normal Carotids: no bruits Resp Effort & Inspection: normal respiratory effort and not tachypneic Auscultation: no crackles, no rales, no rhonchi and no wheezes Cardio Rate: regular rate Rhythm: regular rhythm Heart sounds: no murmurs and normal S1 and S2 GI Palpation (GI): Soft to palpation, nontender, no hepatomegaly and no splenomegaly Auscultation: normal bowel sounds Skin General skin exam: no rashes or lesions noted and dry skin Neuro General: oriented to person, oriented to place and oriented to time Cranial nerves: Yes Equal, round and reactive pupils present Speech: No Abnormal speech present Gait exam (Neuro): Normal gait present Motor exam (neuro): no tremor noted Extrem Right upper extremity: full ROM Left upper extremity: full ROM Right lower extremity: full ROM; no edema Left lower extremity: full ROM; no edema Psych Mental Status: mental status grossly normal Speech and movement: Normal speech and movement present Affect: normal affect Attitude: cooperative Thought process: Normal thought process present Coding Level of Care Code Est Pt Level 4 (05715) Diagnoses Pure hypercholesterolemia E78.00 Hyperlipidemia type: pure hypercholesterolemia Essential hypertension I10 Hypertension type: essential hypertension Impaired glucose metabolism R73.09 Constipation, unspecified constipation type K59.00 Constipation type: unspecified constipation type Additional Codes PHQ-9 - 65801 - PHQ-9 Billing: Yes ([id number]) ARCELIA-7 Assessment Billing - ARCELIA-7 Assessment Tool: ARCELIA-7 Assessment 43514 ([id number]) Assessment & Plan Assessment & Plan (1) HLD (hyperlipidemia): Code(s): E78.5 - Hyperlipidemia, unspecified Category: Medical Qualifiers: Hyperlipidemia type: pure hypercholesterolemia Qualified Code(s): E78.00 - Pure hypercholesterolemia, unspecified Plan: Patient's most recent lipid panel showing borderline cholesterol in an elevated LDL, reports having poor diet eating a lot of stark for breakfast. He will change his lifestyle and diet over the next 6 months.. LDL is to remain below 130. (2) HTN (hypertension): Code(s): I10 - Essential (primary) hypertension Category: Medical Qualifiers: Hypertension type: essential hypertension Qualified Code(s): I10 - Essential (primary) hypertension Plan: Patient's blood pressure acceptable today in office. Will continue on current dose of lisinopril with goal blood pressure to remain below 140/90. (3) Impaired glucose metabolism: Code(s): R73.09 - Other abnormal glucose Category: Medical Plan: Most recent fasting blood sugar slightly high at 114 and A1c is 6.0. Will continue working on lifestyle and dietary modifications. (4) Constipation: Code(s): K59.00 - Constipation, unspecified Category: Medical Qualifiers: Constipation type: unspecified constipation type Qualified Code(s): K59.00 - Constipation, unspecified Plan: Patient has been experiencing constipation since his right shoulder surgery. He is willing to trial senna before bed to help produce more bowel movements. Orders: Orders Microalbumin, Random (w Creat) Today I10 - Essential (primary) hypertension Lipid Panel Today E78.00 - Pure hypercholesterolemia, unspecified Comprehensive Eckerman. Panel Fast Today I10 - Essential (primary) hypertension Complete Blood Count no Diff Today I10 - Essential (primary) hypertension Hemoglobin A1c Today R73.09 - Other abnormal glucose Prostate Specific Antigen Scr Today R73.09 - Other abnormal glucose, Z12.5 - Encounter for screening for malignant neoplasm of prostate Medications: New sennosides (Senna Lax) 17.2 mg (2 x 8.6 mg) PO BEDTIME PRN 20 tabs 0RF constipation 10 days K59.00 - Constipation, unspecified
== END 2025-01-17 08:40 | disposition home or self-care (01) ==
LOC: HO.HMCH 08:12
PROVIDERS: PCP Physician Assistant; Visit Provider Physician Assistant
DX: E78.00 Pure hypercholesterolemia, unspecified (principal); I10 Essential (primary) hypertension; R73.09 Other abnormal glucose; K59.00 Constipation, unspecified

== ENCOUNTER → 2025-01-17 08:11 | Outpatient (BNVA) | payer OTHER, SELFPAY | PROVIDERS: PCP Physician Assistant; Visit Provider Physician Assistant | DX: I10 Essential (primary) hypertension (principal); M75.101 Unspecified rotator cuff tear or rupture of right shoulder, not specified as traumatic; E78.00 Pure hypercholesterolemia, unspecified; R73.09 Other abnormal glucose; K59.00 Constipation, unspecified | CPT/HCPCS: 96127 ==

== ENCOUNTER 2025-01-29 10:09 | Outpatient (AMB) | payer OTHER, SELFPAY ==
--- OUTSIDE RECORDS SUMMARY | 2024-01-28 03:30 | XMS_ITS ---
Author Organization [facility] Address [address] [place] [address] Care Team Providers Care Ball Shagger Name Role Phone Gregory Ayala Primary Care Provider Unavailab Sabino Chanel Unavailable [phone] REASON FOR VISIT colon screening Problems Problem Type SNOMED Code ICD Code Onset Dates Problem Status W/U Status Risk Notes Problem Diverticular disease of colon (514190736) Diverticulosis of large intestine without perforation or abscess without bleeding (K57.30) Active confirmed Encounters Encounter Location Date Provider Diagnosis [facility] [place] Outpatient [address] [place] [phone] 01/28/2024 Sabino Cormier Colon cancer scree adarsh [...] Notes * SABINO JONESDOB:1960 (64 yo M)Acc No.[id number]:01/28/2024 COLON WITH MAC Patient: SABINO SELF Provider: Rosalinda Cormier MD :1960 A ge:63 Y S ex:Male Date:01/28/2024 Address:[address] [place], [place] [address]Arthur [facility] Pcp:Gregory Ayala Subjective: * Chief Complaints: * [...] Cormier MD Date: 1 Generated for Jaime cancino/Trish/Tannersmitting on: 12:12 PM EDT
[2025-01-29 10:10] VITALS: BMI 27.4
--- NOTE | 2025-01-29 10:10 | MHC.OFFVIS ---
Vital Signs 01/29/25 10:10 Height 5 ft 10 in Weight 191 lb BMI 27.4 Intake Visit Reasons: PO-Rt RTC Repair 12/27/24 NE Intake Note: Joshua is a 64 year old male who presents today for a post operative visit about 4 weeks s/p Right RTC Repair with SAD and biceps tenotomy 12/27/24. He is working with CORE therapy. Patient reports that he is still having some significant soreness, he is taking NSAIDs for his pain. He took a fall down the stairs about 1 week ago - He is feeling increased pain in the back and the left shoulder. He feels a little dissapointed in his progress as he feels that he should be further along. Allergies loratadine (From CLARITIN) Allergy (Unknown, Verified 01/17/25 08:24) TACHYCARDIA HPI HPI PO-Rt RTC Repair 12/27/24 NE: Details: Joshua is a 64 year old male who presents today for a post operative visit about 4 weeks s/p Right RTC Repair with SAD and biceps tenotomy 12/27/24. He is working with CORE therapy. Patient reports that he is still having some significant soreness, he is taking NSAIDs for his pain. He took a fall down the stairs about 1 week ago - He is feeling increased pain in the back and the left shoulder. He feels a little dissapointed in his progress as he feels that he should be further along. REPLACED BY [facility] Medical History Arthritis Back pain COVID-19 PVC (premature ventricular contraction) HLD (hyperlipidemia) HTN (hypertension) Asthma SI (sacroiliac) joint dysfunction Surgical History History of esophagogastroduodenoscopy (EGD) H/O colonoscopy Hx of cardiac catheterization Ruptured tendon Family History Father COPD (chronic obstructive pulmonary disease) Mother No problems noted. Maternal Grandmother Colon cancer Sister In good health DMII (diabetes mellitus, type 2) Daughter In good health Brother Mental health disorder Substance use disorder Social History Housing: House Are you a primary healthcare science specialist to a significant other at home: No Do you presently have visiting nurse or other home services: No Alcohol intake: current Alcohol intake frequency: a few times a month Alcohol type: beer and wine Patient Tobacco Use Status: Former Tobacco user Tobacco use type: Cigarette e-Cigarette/Vaping Use: Never Used Second Hand Smoke Exposure: Yes service: No Current occupational status: employed Current occupation: [employer] Current occupational exposures/hazards: No Cognitive needs: No Hearing needs: No Vision needs: Yes (glasses) Physical Exam Exam Exam: No acute distress No pain with passive external rotation at 30 degrees or passive abduction to 60 Vital Signs: BMI result Body Mass Index 27.4 Assessment & Plan Assessment & Plan (1) Status post right rotator cuff repair: Code(s): Z98.890 - Other specified postprocedural states Category: Surgical Plan: Status post large rotator cuff repair. I had a long discussion with him about expectations. He is actually doing very well. He is only 5 weeks out. He, I think, . Understands the recovery timeline. I recommend passive and gentle active assisted motion. He will see me back in 7 weeks. He will not be able to lift heavy objects for at least 6 months. The goal is not rapid active motion but slow, gentle and steady progress. Coding Level of Care Code Global (98248) Diagnoses Status post right rotator cuff repair Z98.890
--- OUTSIDE RECORDS SUMMARY | 2025-01-29 12:13 | XMS_ITS | Patient Health Record ---
Author Organization [facility] Address [address] [place] [id number] Care Team Providers Care Digital Imager Name Role Phone Gregory Ayala Primary Care Provider UnavailSabino Murguia Unavailable [phone] Allergies Allergen (clinical drug ingredient) Drug/Non Drug Allergy documented on EMR Reaction Allergy Type Onset Date Status Claritin Unknown Drug Allergy Active Reason For Referral No Information Medications Medication SIG (Take, Route, Fr equency, Duration) Notes Start Date End Date Status Lisinopril 20 MG Oral; Duration: 90 Active Problems Problem Type SNOMED Code ICD Code Onset Dates Problem Status W/U Status Risk Notes Problem Screening for malignant neoplasm of colon (610478207) Encounter for screening for malignant neoplasm of colon (Z12.11) Active confirmed Problem History of adenomatous polyp of colon (407948370) History of adenomatous polyp of colon (Z86.010) Active confirmed Problem Diverticular disease of colon (661358567) Diverticulosis of large intestine without perforation or abscess without bleeding (K57.30) Active confirmed Problem Screening for malignant neoplasm of rectum (033729177) Encounter for screening for malignant neoplasm of rectum (Z12.12) Active confirmed Problem Preprocedural examination (824192135225913) Preprocedural examination (Z01.818) Active confirmed Problem Gastroesophageal reflux disease (329411397) Gastroesophageal reflux disease, esophagitis presence not specified (K21.9) Active confirmed Plan Of Treatment Future Test Test Name Order Date UPPER GI ENDOSCOPY 12/20/2015 COLONOSCOPY 12/20/2015 COLONOSCOPY 09/17/2023 Insurance Providers Payer Name Payer Address Payer Phone Subscriber Number Group Number Insured Name Patient Relationship to Insured Coverage Start Date Coverage End Date [employer] [address] [address] [address] [place] [address] [id number] KAREN SABINO Self - patient is the insured Medical (General) History Medical History History ICD Code PVC's--Holter monitor--the [facility] reports that he has had numerous PVC's documented on his Holter monitor--he is followed by Dr. Jimenez--neg. cardiac catheterization in 07/2015--on Toprol Denies [place],DM,CVA,Lung disease,renal dise ase GERD-EGD in 04/2016 with a mi nimal hiatal hernia and minimal changes of reflux. Biopsies were negative for Barth's esophagus. Screening colonoscopy with removal of a tubular adenoma in 04/2016 HTN Surgical History Surgery Date(Month/Year) Torn ligaments and tendons i n his left upper extremity in relation to a fall--Dr. Urias
== END 2025-01-29 10:47 | disposition home or self-care (01) ==
LOC: HO.HOS 10:10
PROVIDERS: PCP Physician Assistant; Visit Provider Orthopaedic Surgery
DX: Z98.890 Other specified postprocedural states (principal)
CPT/HCPCS: 99024

== ENCOUNTER 2025-03-19 10:03 | Outpatient (AMB) | payer OTHER, SELFPAY ==
--- NOTE | 2025-03-19 10:09 | A.OFFVIS_ITS ---
Vital Signs 03/19/25 10:10 Height 5 ft 10 in Weight 191 lb BMI 27.4 Intake Visit Reasons: PO- Rt RTC repair 12/27/24 Intake Note: Joshua is a 64 year old left hand dominant male who presents today for a post operative visit about 3 months s/p Right RTC (large tear) Repair with SAD and biceps tenotomy 12/27/24. Patient reports that the shoulder that he is having continued soreness that is felt all the time & is worse at night while trying to sleep . He continues physical therapy with [facility] in [place]. He takes Motrin PRN pain. HE continues to have limited ROM above shoulder height, when he gets to a certain point he feels that the shoulder locks up. Allergies loratadine (From CLARITIN) Allergy (Unknown, Verified 01/17/25 08:24) TACHYCARDIA HPI HPI PO- Rt RTC repair 12/27/24: Details: Joshua is a 64 year old left hand dominant male who presents today for a post operative visit about 3 months s/p Right RTC (large tear) Repair with SAD and biceps tenotomy 12/27/24. Patient reports that the shoulder that he is having continued soreness that is felt all the time & is worse at night while trying to sleep . He continues physical therapy with [facility] in [place]. He takes Motrin PRN pain. HE continues to have limited ROM above shoulder height, when he gets to a certain point he feels that the shoulder locks up. HPI Comments Details: Interval History The patient is a 64-year-old male presenting for follow-up for post-operative rehabilitation after right rotator cuff repair. The patient reports persistent daily shoulder pain since the surgery, which occurred 12 weeks ago. He describes the pain as occurring almost daily and notes that his shoulder feels sore, especially during physical therapy sessions. He can lift his arm to a certain point before it locks up, causing discomfort. The patient expresses concern about returning to work at the [employer], where he uses his hands extensively for eight hours a day. He is worried about adhe ring to the lifting restrictions of 5 to 10 pounds, as his job requires significant manual labor. He mentions that his currently handles tasks like shoveling snow, which he is unable to do. The patient has been actively participating in physical therapy, using elastic bands and performing exercises as instructed. However, he is also performing additional activities outside of therapy, which may not align with the recommended protocol for his recovery stage. Results [facility] [place] Medical History Arthritis Back pain COVID-19 PVC (premature ventricular contraction) HLD (hyperlipidemia) HTN (hypertension) Asthma SI (sacroiliac) joint dysfunction Surgical History History of esophagogastroduodenoscopy (EGD) H/O colonoscopy Hx of cardiac catheterization Ruptured tendon Family History Father COPD (chronic obstructive pulmonary disease) Mother No problems noted. Maternal Grandmother Colon cancer Sister In good health DMII (diabetes mellitus, type 2) Daughter In good health Brother Mental health disorder Substance use disorder Social History Housing: House Are you a primary rn intensive care unit to a significant other at home: No Do you presently have visiting nurse or other home services: No Alcohol intake: current Alcohol intake frequency: a few times a month Alcohol type: beer and wine Patient Tobacco Use Status: Former Tobacco user Tobacco use type: Cigarette e-Cigarette/Vaping Use: Never Used Second Hand Smoke Exposure: Yes service: No Current occupational status: employed Current occupation: [employer] Current occupational exposures/hazards: No Cognitive needs: No Hearing needs: No Vision needs: Yes (glasses) Physical Exam Exam Exam: Physical Exam One hundred 25 degrees of forward flexion and 90 degrees of abduction. 30 degrees of external rotation. No pain with passive or active range of motion. Some tightness with overhead motion. Vital Signs: BMI result Body Mass Index 27.4 Assessment & Plan Assessment & Plan (1) Status post right rotator cuff repair: Code(s): Z98.890 - Other specified postprocedural states Category: Medical Plan Plan 1. Post-Operative Status Following Right Rotator Cuff Repair The patient is advised to continue with physical therapy, focusing on exercises that do not exceed the current lifting restriction. He should avoid overhead work and any activities that could strain the shoulder. The patient is encouraged to adhere strictly to the physical therapy regimen and avoid additional unsupervised activities that may hinder recovery. Follow-up is scheduled in two months to reassess the shoulder's progress and adjust the rehabilitation plan as needed. 2. Persistent Shoulder Pain And Limited Range Of Motion Post-Surgery Pain management strategies should be discussed with the physical therapist to ensure the exercises are within the patient's pain tolerance and do not exacerbate symptoms. 3. Anxiety Related To Return To Work And Physical Limitations The patient is advised to communicate with his employer about the current physical limitations and explore potential modifications to his work duties to accommodate his recovery needs. The patient should consider delaying his return to work until after the next follow-up appointment, allowing more time for recovery and reducing anxiety about physical demands. Current work status: Return to work 04/09/2025. No lifting and no overhead work. Follow up in 2 months. Discussion Notes During the visit, the patient expressed concerns about persistent shoulder pain and the impact on his ability to return to work. I explained that the surgery was intended to restore function rather than eliminate pain entirely and that recovery could take six months or longer. The patient was reassured that his current symptoms are typical for his stage of recovery, especially given the severity of the initial tear. The clinician emphasized the importance of adhering to physical therapy and avoiding activities that could strain the shoulder. The patient was advised to discuss his work restrictions with his employer and consider delaying his return to work to prevent exacerbating his condition. The patient acknowledged understanding the recommendations and agreed to follow the outlined plan. Coding Level of Care Code Global (03897) Diagnoses Status post right rotator cuff repair Z98.890
[2025-03-19 10:10] VITALS: BMI 27.4
== END 2025-03-19 10:38 | disposition home or self-care (01) ==
LOC: HO.HOS 10:03
PROVIDERS: PCP Physician Assistant; Visit Provider Orthopaedic Surgery
DX: Z98.890 Other specified postprocedural states (principal)
CPT/HCPCS: 99024